=== PATIENT | male | born 1995 | race African-American/Black ===

== ENCOUNTER 2022-10-15 12:45 | Outpatient (REF) | payer OTHER, SELFPAY ==
--- NOTE | ~2022-10-15 | XR_ITS ---
EXAMINATION: XR ANKLE, LEFT CLINICAL INFORMATION: Left ankle pain. COMPARISON: None TECHNIQUE: 3 views of the left ankle. FINDINGS: There is no evidence of acute fracture or dislocation of the left ankle. No significant soft tissue swelling is present. There is a 4 x 3 mm circumscribed density seen about the ankle joint between the tibia and fibula and may represent sequela from previous injury. Ankle mortise appears intact. There is some spurring seen about the anterior aspect of the tibial talar joint as well as involving the dorsum of the talonavicular joint. Patient is status post previous tarsal and metatarsal surgery with plate and screws in place. XR/XR ankle LT min 3V IMPRESSION: 1. Degenerative change of the left ankle without evidence of acute fracture or dislocation. 2. Question possible loose body or degenerative calcification about the lateral aspect of the ankle joint. This is not usual region of secondary ossification center of the ankle.
[2022-10-15 12:58] LABS: MANUAL DIFF FLAG NO
[2022-10-15 13:25] LABS: Appearance Urine Clear; Color Urine Yellow; Glucose Urine UA Negative (Negative); Leukocyte Esterase Urine Negative (Negative); Nitrite Urine Negative (Negative); PH 5.5 (5.0-9.0); Urine Blood Negative (Negative); Urine Ketones Negative (Negative); Urine Protein Negative (Neg-Trace)
[2022-10-15 13:33] LABS: Basophils Percent Auto 0.3 % (0-2); Eosinophils Absolute Auto 0.1 X10*3/uL (0.0-0.4); Hematocrit 41.3 % (42.0-52.0); Hemoglobin 14.2 g/dl (14.0-18.0); Imm Gran Abs Auto 0.02 X10*3/uL (0.00-0.03); Imm Gran Pct Auto 0.5 % (0.0-0.4); Lymphocytes Absolute Auto 1.5 X10*3/uL (1.2-4.9); Lymphocytes Percent Auto 36.6 % (20-40); Mean Corpuscular HGB Conc 34.4 g/dl (31.0-36.0); Mean Corpuscular Hemoglobin 29.8 pg (27.0-33.0); Mean Corpuscular Volume 86.6 fL (80.0-98.0); Mean Platelet Volume 9.5 fL (9.4-12.4); Monocytes Absolute Auto 0.5 X10*3/uL (0.1-1.2); Monocytes Percent Auto 12.8 % (2-11); Neutrophils Absolute Auto 1.9 x10*3/uL (2.0-8.3); Neutrophils Percent Auto 47.8 % (45-73); Platelet Count 248 X10*3/uL (160-400); Red Blood Count 4.77 X10*6/uL (4.60-5.80)
[2022-10-15 14:00] LABS: Alanine Aminotransferase 16 U/L (0-40); Albumin Level 4.2 g/dL (3.5-5.0); Alkaline Phosphatase 73 U/L (39-117); Anion Gap 12 (12-20); Aspartate Amino Transferase 19 U/L (5-37); Bilirubin Total 0.5 mg/dL (0.0-1.0); Blood Urea Nitrogen 13 mg/dL (9-16); Calcium 9.5 mg/dL (8.4-10.2); Carbon Dioxide 27 mmol/L (22-29); Cholesterol 176 mg/dL; Estimated Glomerular Filt Rate > 60; Glucose Random 79 mg/dL (60-115); Total Protein 7.5 g/dL (6.5-8.0)
[2022-10-15 15:28] LABS: Chloride 107 mmol/L (96-108); Potassium 4.4 mmol/L (3.3-5.1); Sodium 142 mmol/L (135-145); TSH reflex Free T4 1.92 uIU/mL (0.32-4.0); Vitamin D 25-OH Total 26.8 ng/mL (>30)
== END 2022-10-15 12:46 | disposition home or self-care (01) ==
LOC: HO.LAB 12:45
PROVIDERS: PCP Internal Medicine; Visit Provider Internal Medicine
DX: Z00.00 Encounter for general adult medical examination without abnormal findings (principal); M25.572 Pain in left ankle and joints of left foot; R30.0 Dysuria; I10 Essential (primary) hypertension; E55.9 Vitamin D deficiency, unspecified; E78.00 Pure hypercholesterolemia, unspecified
CPT/HCPCS: 36415; 73610; 80053; 81003; 82306; 82465; 84443; 85025

== ENCOUNTER 2023-01-09 11:12 | Outpatient (REF) | payer OTHER, SELFPAY ==
--- NOTE | ~2023-01-09 | XR_ITS ---
EXAMINATION: XR KNEE AP STANDING CLINICAL INFORMATION: Pain in the right knee. COMPARISON: None TECHNIQUE: AP bilateral standing view of the knees was obtained. FINDINGS: No acute fractures or malalignment in this limited single view of the knees. Mild joint space narrowing with subcortical sclerosis in the medial compartments, slightly more noticeable on the left side. No erosions or chondrocalcinosis. No unexpected radiopaque foreign bodies. XR/XR knee standing BI IMPRESSION: 1. No acute fractures or malalignment. 2. Mild degenerative osteoarthritis in the medial compartments of both knees, slightly more apparent on the left knee.
== END 2023-01-09 11:13 | disposition home or self-care (01) ==
LOC: HO.XRAY 11:12
PROVIDERS: PCP Internal Medicine; Visit Provider Internal Medicine
DX: M25.561 Pain in right knee (principal); M25.562 Pain in left knee
CPT/HCPCS: 73565

== ENCOUNTER 2023-05-29 10:19 | Outpatient (AMB) | payer OTHER, SELFPAY ==
[2023-05-29 10:32] VITALS: BP 118/86; PULSE 68; O2SAT 98; BMI 23.0
--- NOTE | 2023-05-29 10:32 | A.OFFPC_ITS ---
Vital Signs 05/29/23 10:32 Height 6 ft 1.5 in Weight 176 lb 6 oz BMI 23.0 BP 118/86 Blood Pressure Location Lt brachial Position Sitting Pulse 68 Pulse Source Pulse Oximeter Pulse Oximetry (%) 98 Oxygen Delivery Method Room Air Intake Visit Reasons: 4mth f/u/Rapid weight loss [employer] Service Manager Required: No Accompanied by: Self / Same As Patient Allergies amphetamine [From Adderall] Allergy (Severe, Verified 05/29/23 11:13) Anaphylaxis dextroamphetamine [From Adderall] Allergy (Severe, Verified 05/29/23 11:13) Anaphylaxis seafood Allergy (Severe, Verified 05/29/23 11:13) Anaphylaxis Medication List - Last Reconciled 05/29/23 by Bryan Joseph MD albuterol sulfate 90 mcg/actuation 2 puffs inhalation Q6H PRN aspirin 325 mg PO Q4H benztropine 0.5 mg PO BID cholecalciferol (vitamin D3) 50 mcg PO DAILY 90 days divalproex (Depakote) 500 mg PO BID hydroxyzine HCl 25 mg PO BID PRN hydroxyzine HCl 50 mg PO TID loratadine 10 mg PO DAILY multivit with min-folic acid 200 mcg (Men's Multivitamin Gummies) tabs PO olanzapine (Zyprexa) 2.5 mg PO DAILY olanzapine (Zyprexa) 15 mg PO BEDTIME prazosin 5 mg PO BEDTIME sumatriptan succinate take 1 tab at onset of headache; if no relief may repeat 1 tab after at least 2 hrs; max = 4 tabs/24 hr PO Tobacco use date assessed: 05/29/23 Dental Screening Dental Screen Date: 05/29/23 Did you have a dental visit in the last 12 months?: Yes Did you have a dental problem in the last 6 months where you did not have access to dental care?: No Was dental information given to patient?: Patient has dentist HPI 4mth f/u/Rapid weight loss HPI Details Patient comes in today for further evaluation of weight loss States that he has been losing a lot of weight lately Notes that he would llke to lose some weight but he has not really done much to help him lose weight lately and has already lost about 40 pounds in just over 4 months and is now getting concerned Relates that he has been experiencing on and off abdominal pain for a while now, and that his stomach pains have gotten worse over the past month, especially in the morning and late at night Notes that eating/drinking do not necessarily help or make his abdominal pains worse He denies any nausea or vomiting or change in bowel habits; has not noticed any blood in his stool lately He denies any dizziness; still has on and off headaches but feels that they are better controlled lately Was seen by neurology at [facility] a couple of weeks ago for his migraine headaches and was started on Rizatriptan 10 mg and Naproxen 500 mg PRN for now; will consider prophylactic Tx at his next visit depending on his his symptoms will be at the time Denies any chest pains, no shortness of breath noted Patient has also been experiencing a lot of recurrent neck pains lately and would like to get something to help with his neck pain Does not recall any recent injury or trauma to his neck [facility] Medical History Allergic rhinitis Anxiety Asthma Bipolar depression Overweight (BMI 25.0-29.9) Vitamin D deficiency Surgical History History of ankle surgery (~05/09/19) Family History Mother Mental health disorder Social History Housing: Apartment Patient Tobacco Use Status: Never used Tobacco Tobacco use type: Cigarette e-Cigarette/Vaping Use: Never Used Second Hand Smoke Exposure: No service: No Current occupational status: unemployed and disabled Cognitive needs: No Hearing needs: No Vision needs: No Questionnaire PHQ-9 Over the last 2 weeks, how often have you been bothered by any of the following problems? 1. Little interest or pleasure in doing things: several days 2. Feeling down, depressed, or hopeless: several days 3. Trouble falling or staying asleep, or sleeping too much: several days 4. Feeling tired or having little energy: more than half the days 5. Poor appetite or overeating: several days 6. Feeling bad about yourself - or that you are a failure or have let yourself or your family down: not at all 7. Trouble concentrating on things, such as reading the newspaper or watching television: more than half the days 8. Moving or speaking so slowly that other people could have noticed. Or the opposite - being so fidgety or restless that you have been moving around a lot more than usual: not at all 9. Thoughts that you would be better off or of hurting yourself in some way: not at all Total score: 8 Depression Screening Interpretation: Positive Depression Screening Follow-up: Existing condition and In treatment 04988 - PHQ-9 Billing: Yes Source: Developed by Drs. Desean Benjamin, Jade Sanders, Blade Mccabe and colleagues, with an educational axel from [employer]. Thrive Questionnaire Date Thrive assessed: 05/29/23 I am a: Patient What is your living situation today?: I have a place to live, but I am worried about losing it in the future Within the past 12 months, did the food you bought not last and you didn't have the money to get more?: Sometimes True Within the past 12 months, did you worry whether your food would run out before you got money to buy more?: Sometimes True Do you have trouble paying for medicines?: No Do you have trouble getting transportation to medical appointments?: No Do you have trouble paying your heating and electricity bill?: No Do you have trouble taking care of your child, family member or friend?: No Do you have trouble with day-to-day activities such as bathing, preparing meals, shopping, managing finances, etc.?: No Are you currently unemployed and looking for a job?: No Are you interested in more education?: No Please select the resources that you would like help with: None Currently or been in a relationship where the following occur: no concerns reported AUDIT C Alcohol Use Questionnaire (AUDIT-C) 1. How often do you have a drink containing alcohol?: Never 3. How often do you have six or more drinks on one occasion?: Never Total Score: 0 Score Reviewed/Action Taken: Yes KELSI-7 AMB Questionnaire KELSI-7 Date KELSI - 7 assessed: 05/29/23 Feeling nervous, anxious, or on edge: 1 = Several days Not being able to stop or control worryin = More than half the days Worrying too much about different things: 0 = Not at all Trouble relaxin = Several days Being so restless that it is hard to sit still: 1 = Several days Becoming easily annoyed or irritable: 0 = Not at all Feeling afraid as if something awful might happen: 1 = Several days Total KELSI-7 score (0-4 normal; 5-9 mild; 10-14 moderate; 15-21 severe): 6 Source: Developed by Drs. Desean Benjamin, Jade Sanders, Blade Mccabe and colleagues, with an educational axel from [employer]. Review of Systems Const Denies chills, Denies fatigue, Denies fever(s), Reports headache(s) (on and off but feels they have been better controlled lately) and Reports weight loss ENT Denies dysphagia, Denies dizziness, Denies otalgia, Reports headache(s) (on and off but feels they have been better controlled lately), Reports neck pain (recurrent lately), Denies odynophagia and Denies sore throat Card Denies chest pain, Denies palpitations and Denies dyspnea Resp Denies cough and Denies dyspnea GI Reports abdominal pain (on and off, mostly over the epigastric area), Denies hematochezia, Denies constipation, Denies dysphagia, Denies heartburn, Denies diarrhea, Denies nausea, Denies odynophagia and Denies vomiting Denies dysuria, Denies nocturia and Denies urinary frequency Musc Reports neck pain (recurrent lately) Neuro Denies dizziness and Reports headache(s) (on and off but feels they have been better controlled lately) Endo Denies fatigue and Denies palpitations Physical exam (Primary Care) Vital Signs: Last Vital Signs Pulse 68 05/29/23 10:32 BP 118/86 05/29/23 10:32 Pulse Ox 98 05/29/23 10:32 Oxygen Delivery Method Room Air 05/29/23 10:32 BMI result Body Mass Index 23.0 Tobacco/Smoking Status: Tobacco use Status Tobacco use date assessed 05/29/23 05/29/23 10:39 Patient Tobacco Use Status Never used Tobacco 05/29/23 10:39 Tobacco use type Cigarette 05/29/23 10:39 e-Cigarette/Vaping Use Never Used 05/29/23 10:39 PHQ-9: PHQ-9 Score PHQ-9: Total score 8 05/30/23 04:43 Depression Screening Interpretation: Positive Depression Screening Follow-up: Existing condition and In treatment Thrive Assessment: Date of Thrive Assessment Date Thrive assessed 05/29/23 05/29/23 10:39 Currently or been in a relationship where the following occur: no concerns reported Const General: no acute distress and alert HENMT Ears: TM's normal bilaterally and EAC's normal Throat: Yes posterior oropharynx normal and Yes tonsils normal (no TP congestion) Neck Neck: Yes no lymphadenopathy and Yes supple Resp Auscultation: clear to auscultation bilaterally, no rales and no wheezes Cardio Rate: regular rate Rhythm: regular rhythm Heart sounds: no murmurs GI Palpation (GI): Soft to palpation, Tenderness to palpation present (GI) (mild) in the epigastrum, no guarding, not rigid, No hepatosplenomegaly present and No Rebound tenderness present General: Yes no CVA tenderness Back/Spine/Pelvis Back: no CVA tenderness Cervical Spine: cervical muscular tenderness Skin General skin exam: no rashes or lesions noted Extrem General: Yes no clubbing, cyanosis or edema Assessment and Plan Assessment & Plan (1) Unintentional weight loss: Code(s): R63.4 - Abnormal weight loss Plan: Will send patient for some labs AARON for further evaluation (2) Abdominal pain: Code(s): R10.9 - Unspecified abdominal pain Qualifiers: Abdominal location: epigastric Qualified Code(s): R10.13 - Epigastric pain Plan: Discussed some dietary restrictions at this time until we find out more about his stomach symptoms Will send patient for upper GI series for further evaluation Will start patient on Omeprazole 20 mg QD PRN for now (3) Neck pain: Code(s): M54.2 - Cervicalgia Plan: Will send him for cervical spine x-rays for further evaluation Will start him on Tizanidine 4 mg TID PRN (4) Migraine: Code(s): G43.909 - Migraine, unspecified, not intractable, without status migrainosus Qualifiers: Migraine type: unspecified Status migrainosus presence: without status migrainosus Intractability: not intractable Qualified Code(s): G43.909 - Mi graine, unspecified, not intractable, without status migrainosus Plan: Reinforced avoidance of triggers and potential triggers for his migraine h eadaches Continue Rizatriptan 10 mg PRN and Naproxen 500 mg BID PRN (to be taken with food) Neurology will consider starting on prophylactic medications if his headaches persist or get worse Follow-up [facility] neurology as scheduled (5) Asthma: Code(s): J45.909 - Unspecified asthma, uncomplicated Qualifiers: Asthma severity: mild Asthma persistence: intermittent Asthma complication type: uncomplicated Qualified Code(s): J45.20 - Mild intermittent asthma, uncomplicated Plan: Stable; continue Albuterol HFA 1 to 2 inhalations Q 6 hours PRN (6) Vitamin D deficiency: Code(s): E55.9 - Vitamin D deficiency, unspecified Plan: Continue Vitamin D3 2000 units QD (7) Anxiety: Code(s): F41.9 - Anxiety disorder, unspecified Plan: Continue Hydroxyzine 50 mg TID PRN Follow up with psychiatry as scheduled (8) Bipolar depression: Code(s): F31.9 - Bipolar disorder, unspecified Plan: Continue Depakote 500 mg BID, Benztropine 0.5 mg BID, Olanzapine 2.5 mg QD and 15 mg Q HS and Prazosin 5 mg Q HS Follow up with psychiatry as scheduled Plan Follow up in 3 months Orders: Orders TSH reflex Free T4 05/29/23 R63.4 - Abnormal weight loss Complete Blood Count Auto Diff 05/29/23 R63.4 - Abnormal weight loss, Z86.2 - Personal history of diseases of the blood and blood-forming organs and certain disorders involving the immune mechanism Hemoglobin Electrophoresis 05/29/23 R63.4 - Abnormal weight loss, Z86.2 - Personal history of diseases of the blood and blood-forming organs and certain disorders involving the immune mechanism Comprehensive [place]. Panel Fast 05/29/23 R63.4 - Abnormal weight loss Lipid Panel 05/29/23 E78.00 - Pure hypercholesterolemia, unspecified, R63.4 - Abnormal weight loss Vitamin D 25-OH Total 05/29/23 E55.9 - Vitamin D deficiency, unspecified, R63.4 - Abnormal weight loss Erythrocyte Sedimentation Rate 05/29/23 R10.9 - Unspecified abdominal pain, R63.4 - Abnormal weight loss UA CC w/rflx Micro + Cult 05/29/23 R30.0 - Dysuria, R63.4 - Abnormal weight loss XR cervical spine 3V 05/29/23 M54.2 - Cervicalgia FL upper GI series 05/29/23 R10.9 - Unspecified abdominal pain, R63.4 - Abnormal weight loss Medications: New tizanidine 4 mg PO Q8H 30 days PRN 90 tabs 0RF muscle spasms omeprazole 20 mg PO DAILY 30 days 30 caps 3RF Coding Level of Care Code Est Pt Level 4 (71571) Diagnoses Unintentional weight loss R63.4 Abdominal pain R10.13 Abdominal location: epigastric Neck pain M54.2 Migraine G43.909 Migraine type: unspecified Status migrainosus presence: without status migrainosus Intractability: not intractable Asthma J45.20 Asthma severity: mild Asthma persistence: intermittent Asthma complication type: uncomplicated Vitamin D deficiency E55.9 Anxiety F41.9 Bipolar depression F31.9
== END 2023-05-29 11:32 | disposition home or self-care (01) ==
PROVIDERS: Visit Provider Internal Medicine
DX: J45.20 Mild intermittent asthma, uncomplicated (principal); G43.909 Migraine, unspecified, not intractable, without status migrainosus; E55.9 Vitamin D deficiency, unspecified; F41.9 Anxiety disorder, unspecified; F31.9 Bipolar disorder, unspecified; R63.4 Abnormal weight loss; R10.13 Epigastric pain; M54.2 Cervicalgia
CPT/HCPCS: 99214

== ENCOUNTER 2023-05-29 11:38 | Outpatient (REF) | payer OTHER, SELFPAY ==
--- NOTE | ~2023-05-29 | XR_ITS ---
EXAMINATION: XR CERVICAL SPINE CLINICAL INFORMATION: Woke up with neck pain. COMPARISON: None available. TECHNIQUE: 4 views of the cervical spine. FINDINGS: No abnormal prevertebral soft tissue swelling is seen. No significant disc space narrowing is noted. No subluxation is seen. XR/XR cervical spine 3V IMPRESSION: No significant cervical spine abnormality appreciated.
[2023-05-29 12:02] LABS: MANUAL DIFF FLAG NO
[2023-05-29 13:53] LABS: Appearance Urine Clear; Color Urine Yellow; Glucose Urine UA Negative (Negative); Leukocyte Esterase Urine Negative (Negative); Nitrite Urine Negative (Negative); Specific Gravity - Urine 1.015 (1.005-1.025); Urine Blood Negative (Negative); Urine Ketones Negative (Negative); Urine Protein Negative (Neg-Trace)
[2023-05-29 13:58] LABS: Basophils Percent Auto 0.5 % (0-2); Eosinophils Percent Auto 0.5 % (0-4); Hematocrit 41.3 % (42.0-52.0); Hemoglobin 14.2 g/dl (14.0-18.0); Imm Gran Abs Auto 0.01 X10*3/uL (0.00-0.03); Imm Gran Pct Auto 0.3 % (0.0-0.4); Lymphocytes Absolute Auto 1.5 X10*3/uL (1.2-4.9); Mean Corpuscular HGB Conc 34.4 g/dl (31.0-36.0); Mean Corpuscular Hemoglobin 30.1 pg (27.0-33.0); Mean Corpuscular Volume 87.7 fL (80.0-98.0); Mean Platelet Volume 10.6 fL (9.4-12.4); Monocytes Absolute Auto 0.3 X10*3/uL (0.1-1.2); Monocytes Percent Auto 6.5 % (2-11); Neutrophils Absolute Auto 2.2 x10*3/uL (2.0-8.3); Neutrophils Percent Auto 55.2 % (45-73); Platelet Count 228 X10*3/uL (160-400); Red Blood Count 4.71 X10*6/uL (4.60-5.80); Red Cell Distribution Width 12.6 % (11.0-16.0)
[2023-05-29 14:39] LABS: Alanine Aminotransferase 8 U/L (0-40); Albumin Level 4.6 g/dL (3.5-5.0); Alkaline Phosphatase 102 U/L (39-117); Anion Gap 14 (12-20); Aspartate Amino Transferase 14 U/L (5-37); Bilirubin Total 0.7 mg/dL (0.0-1.0); Blood Urea Nitrogen 9 mg/dL (9-16); Calcium 9.8 mg/dL (8.4-10.2); Carbon Dioxide 27 mmol/L (22-29); Chloride 105 mmol/L (96-108); Cholesterol 173 mg/dL; Estimated Glomerular Filt Rate > 60; Glucose Fasting 73 mg/dL (60-99); HDL Cholesterol 54 mg/dL; LDL Cholesterol Calculated 105 mg/dl; Potassium 4.2 mmol/L (3.3-5.1); Sodium 142 mmol/L (135-145); Triglycerides 72 mg/dL
[2023-05-29 14:55] LABS: TSH reflex Free T4 1.31 uIU/mL (0.32-4.0); Vitamin D 25-OH Total 56.9 ng/mL (>30)
[2023-05-29 15:06] LABS: Erythrocyte Sedimentation Rate 2 MM/HR (0-15)
[2023-06-03 21:29] LABS: Hematocrit 41.2 % (38.5-50.0); Hemoglobin 14.2 g/dL (13.2-17.1); MCH 30.7 pg (27.0-33.0); MCV 89.2 fL (80.0-100.0); RBC 4.62 Million/uL (4.20-5.80); RDW 13.6 % (11.0-15.0)
== END 2023-05-29 11:39 | disposition home or self-care (01) ==
LOC: HO.LAB 11:38
PROVIDERS: PCP Internal Medicine; Visit Provider Internal Medicine
DX: E55.9 Vitamin D deficiency, unspecified (principal); R63.4 Abnormal weight loss; R10.9 Unspecified abdominal pain; E78.00 Pure hypercholesterolemia, unspecified; R30.0 Dysuria; M54.2 Cervicalgia; Z86.2 Personal history of diseases of the blood and blood-forming organs and certain disorders involving the immune mechanism
CPT/HCPCS: 36415; 72040; 80053; 80061; 81003; 82306; 83020; 84443; 85014; 85018; 85025; 85041; 85652

== ENCOUNTER 2023-08-13 19:03 | Emergency (ER) | payer OTHER, SELFPAY ==
[2023-08-13 19:30] VITALS: BP 120/72; BP 170/80; PULSE 81; PULSE 82; RESP 20; TEMP 36.8; O2SAT 96; O2SAT 98; BMI 28.1
[2023-08-13 19:37] VITALS: BP 120/72; PULSE 82; RESP 20; TEMP 36.8; O2SAT 96
--- NOTE | 2023-08-13 19:51 | ED.PSYCH ---
HPI - Psych General Chief Complaint: Psychiatric Symptoms Stated Complaint: crisis Time Seen by Provider: 08/13/23 19:20 Source: patient and EMS Mode of arrival: EMS Limitations: no limitations History of Present Illness HPI Narrative: 27-year-old male history of anxiety, depression, bipolar disorder, PTSD presenting to the emergency department with complaints of anxiety, depression, difficulty with grieving, in stating ?I do not want to be here ?. Patient reports that his cousin was early murdered last week, and the body was is found today, this triggered all symptoms. He reports if he saw the person who killed his cousin he would want to hurt them. Not endorsing suicidal ideation however making vague complaints. No medical complaints. No hallucinations. No drugs, alcohol or tobacco Related Data Home Medications Medication Instructions Recorded Confirmed albuterol sulfate 90 mcg/actuation 2 puff inhalation Q6H PRN 09/06/22 05/29/23 aerosol inhaler aspirin 325 mg tablet 325 mg PO Q4H 09/06/22 05/29/23 benztropine 0.5 mg tablet 0.5 mg PO BID 09/06/22 05/29/23 divalproex 500 mg tablet,delayed 500 mg PO BID 09/06/22 05/29/23 release (Depakote) hydroxyzine HCl 25 mg tablet 25 mg PO BID PRN 09/06/22 05/29/23 hydroxyzine HCl 50 mg tablet 50 mg PO TID 09/06/22 05/29/23 loratadine 10 mg tablet 10 mg PO DAILY 09/06/22 05/29/23 multivitamin with minerals-folic tab PO 09/06/22 05/29/23 acid 200 mcg chewable tablet (Men's Multivitamin Gummies) olanzapine 15 mg tablet (Zyprexa) 15 mg PO BEDTIME 09/06/22 05/29/23 olanzapine 2.5 mg tablet (Zyprexa) 2.5 mg PO DAILY 09/06/22 05/29/23 prazosin 5 mg capsule 5 mg PO BEDTIME 09/06/22 05/29/23 Previous Rx's Medication Instructions Recorded cholecalciferol (vitamin D3) 50 50 mcg PO DAILY 90 days #90 caps 01/09/23 mcg (2,000 unit) capsule sumatriptan succinate 50 mg tablet See Rx Instructions PO .COMPLEX 04/10/23 #10 tabs omeprazole 20 mg capsule,delayed 20 mg PO DAILY 30 days #30 caps 05/29/23 release tizanidine 4 mg tablet 4 mg PO Q8H PRN muscle spasms 30 05/29/23 days #90 tabs Allergies Allergy/AdvReac Type Severity Reaction Status Date / Time amphetamine [From Adderall] Allergy Severe Anaphylaxis Verified 08/13/23 19:30 dextroamphetamine Allergy Severe Anaphylaxis Verified 08/13/23 19:30 [From Adderall] seafood Allergy Severe Anaphylaxis Verified 08/13/23 19:30 Review of Systems Review of Systems: Constitutional : No Weight loss, No Fever, No Chills, No Fatigue, No Malaise ENT/Mouth : No sore throat, No Rhinorrhea Eyes: No Eye Pain, No Swelling, No Redness Cardiovascular : No Chest Pain, No SOB, No Dyspnea on Exertion, No Orthopnea, No Edema, No Palpitations Respiratory : No Cough, No Sputum, No Wheezing Gastrointestinal : No Nausea, No Vomiting, No Diarrhea, No Constipation, No abdominal Pain, No Hematochezia, No Melena Genitourinary : No Dysuria, No Urinary Frequency, No Hematuria, Musculoskeletal : No joint pain, No Myalgias, No Joint Swelling Skin : No Skin Lesions, No rash Neuro : No Weakness, No Numbness, No Dizziness, No Headache Psych : + Anxiety/Panic, + Depression, + suicidal ideation All other systems reviewed and are negative Yes all other systems are reviewed and are negative PMFSH Past Medical History Attestation statement: The following information was validated with the patient. Source: old records reviewed and nursing notes reviewed Medical History Allergic rhinitis Anxiety Asthma Bipolar depression Overweight (BMI 25.0-29.9) Vitamin D deficiency Surgical History History of ankle surgery (~05/09/19) Family History Family History Mother Mental health disorder Social History Social History Housing: Apartment Alcohol intake: never Patient Tobacco Use Status: Never used Tobacco Tobacco use type: Cigarette Smoked in Last 30 Days: No e-Cigarette/Vaping Use: Never Used Second Hand Smoke Exposure: No Use of substances other than those prescribed or required for medical reasons: Yes Substance Use Type: Marijuana Advance Directives: No Advance Directives Information Provided: No service: No Current occupational status: unemployed and disabled Cognitive needs: No Hearing needs: No Vision needs: No Physical Exam Vital Signs: Vital Signs: Last Vital Signs Temp 98.2 F 08/13/23 21:30 Pulse 69 08/13/23 21:30 Resp 17 08/13/23 21:30 BP 125/69 08/13/23 21:30 Pulse Ox 98 08/13/23 21:30 O2 Del Method Room Air 08/13/23 21:30 BMI result Body Mass Index 28.1 vss Appearance: Alert.? Oriented X3.? No acute distress.? Head: Normocephalic, atraumatic, no step-offs or deformities Eyes: Pupils equal, round and reactive to light.? CVS: Normal heart rate and rhythm.? Pulses normal.? Respiratory: No respiratory distress.? Breath sounds normal.? Abdomen: Soft and nontender.? Skin: Skin warm and dry.? Normal skin color.? Normal skin turgor.? Extremities: No lower extremity edema.? No calf ttp. 5/5 strength to bilateral upper and lower extremities Back: No midline tenderness, no C-spine tenderness, full range of motion, no CVA tenderness bilaterally Neuro: Oriented X 3.? No motor deficit.? No sensory deficit. CN 2-12 intact Course Reevaluation(s) Reevaluation #1: CBC unremarkable appears to be around patient's baseline. Chemistry no acute findings requiring intervention. UA without infection. Salicylates, acetaminophen, ethanol negative. Urine toxicology negative. At this time patient to be placed into observation to allow more time to be evaluated by the behavioral health team. At time observation was started patient common cooperative no acute distress will continue to monitor Time: 22:22 Medical Decision Making Medical Decision Making [facility] Narrative: [id number] 27-year-old male presents with anxiety, depression, recent loss of a cousin. Vague SI, and HI. Physical exam unremarkable Concerns for anxiety and depression likely secondary to recent loss of family member. Unlikely bipolar disorder, acute asa or psychosis, unlikely metabolic derangements. Will rule out polysubstance abuse, ethanol use. Plan medical clearance evaluation by behavioral health Differential Diagnosis Differential Diagnoses: The differential diagnosis associated with the presentation includes Concerns for anxiety and depression likely secondary to recent loss of family member. Unlikely bipolar disorder, acute asa or psychosis, unlikely metabolic derangements. Will rule out polysubstance abuse, ethanol use. Admission/Observation Consideration of admission/observation: Escalation of care including admission/observation considered Lab Data MDM Lab Attestation statement: I reviewed the patient's lab results. 08/13/23 21:26 08/13/23 21:26 Labs: Lab Results 08/13/23 Range/Units 21:26 WBC 5.6 (4.8-10.8) X10*3/uL RBC 4.52 L (4.60-5.80) X10*6/uL Hgb 13.6 L (14.0-18.0) g/dl Hct 39.1 L (42.0-52.0) % MCV 86.5 (80.0-98.0) fL MCH 30.1 (27.0-33.0) pg MCHC 34.8 (31.0-36.0) g/dl RDW 12.4 (11.0-16.0) % Plt Count 239 (160-400) X10*3/uL MPV 9.5 (9.4-12.4) fL Immature Gran % (Auto) 0.2 (0.0-0.4) % Neut % (Auto) 60.2 (45-73) % Lymph % (Auto) 31.6 (20-40) % [place] % (Auto) 7.0 (2-11) % Eos % (Auto) 0.5 (0-4) % Baso % (Auto) 0.5 (0-2) % Lymph # (Auto) 1.8 (1.2-4.9) X10*3/uL [place] # (Auto) 0.4 (0.1-1.2) X10*3/uL Eos # (Auto) 0.0 (0.0-0.4) X10*3/uL Baso # (Auto) 0.0 (0.0-0.2) X10*3/uL Abs Immat Gran (auto) 0.01 (0.00-0.03) X10*3/uL Absolute Neuts (auto) 3.4 (2.0-8.3) x10*3/uL Absolute Nucleated RBC 0.000 (0.0-0.012) X10*3/uL Nucleated RBC % (auto) 0.0 (0.0-0.2) /100WBC Sodium 141 (135-145) mmol/L Potassium 4.2 (3.3-5.1) mmol/L Chloride 105 (96-108) mmol/L Carbon Dioxide 26 (22-29) mmol/L Anion Gap 14 (12-20) BUN 16 (9-16) mg/dL Creatinine 1.10 (0.5-1.4) mg/dL Estim Creat Clear Calc 123.5 Estimated GFR > 60 Random Glucose 95 (60-115) mg/dL Calcium 9.3 (8.4-10.2) mg/dL Magnesium 2.4 (1.6-2.6) mg/dL Total Bilirubin 0.5 (0.0-1.0) mg/dL AST 15 (5-37) U/L ALT 9 (0-40) U/L Alkaline Phosphatase 88 (39-117) U/L Total Protein 7.9 (6.5-8.0) g/dL Albumin 4.4 (3.5-5.0) g/dL Urine Color Yellow Urine Appearance Clear Urine pH 7.0 (5.0-9.0) Ur Specific [place] 1.020 (1.005-1.025) Urine Protein Negative (Neg-Trace) mg/dL Urine Glucose (UA) Negative (Negative) mg/dL Urine Ketones Negative (Negative) mg/dL Urine Blood Negative (Negative) Urine Nitrite Negative (Negative) Ur Leukocyte Esterase Negative (Negative) Salicylates < 5.0 L (15-30) mg/dL Urine Opiates Screen Not Detected (Not Detect) Urine Fentanyl Screen Not Detected (Not Detect) Acetaminophen < 17 (<30) mcg/mL Ur Barbiturates Screen Not Detected (Not Detect) Ur Phencyclidine Scrn Not Detected (Not Detect) Ur Amphetamines Screen Not Detected (Not Detect) U Benzodiazepines Scrn Not Detected (Not Detect) Urine Cocaine Screen Not Detected (Not Detect) U Marijuana (THC) Screen Not Detected (Not Detect) Ethyl Alcohol < 10 mg/dL External Record Review External record reviewed: Office record and Outpatient record Chronic Conditions Patient?s care impacted by: Other (psych: depression, anxiety, ptsd, bipolar ) Social Determinants Patient?s care significantly limited by Social Determinants of Health including: Other Social Determinant of Health Critical Care Time Critical Care Time Critical Care Time: No Discharge Plan Discharge Clinical Impression: Anxiety, Depression, Grief reaction Patient Disposition: Still a Patient Prescriptions: No Action divalproex [Depakote] 500 mg tablet,delayed release (DR/EC) 500 mg PO BID olanzapine [Zyprexa] 15 mg tablet 15 mg PO BEDTIME olanzapine [Zyprexa] 2.5 mg tablet 2.5 mg PO DAILY prazosin 5 mg capsule 5 mg PO BEDTIME albuterol sulfate 90 mcg/actuation HFA aerosol inhaler 2 puff inhalation Q6H PRN hydroxyzine HCl 25 mg tablet 25 mg PO BID PRN hydroxyzine HCl 50 mg tablet 50 mg PO TID Men's Multivitamin Gummies 200 mcg tablet,chewable PO loratadine 10 mg tablet 10 mg PO DAILY benztropine 0.5 mg tablet 0.5 mg PO BID aspirin 325 mg tablet 325 mg PO Q4H Rx Instructions: while awake cholecalciferol (vitamin D3) 50 mcg (2,000 unit) capsule 50 mcg PO DAILY 90 Days Qty: 90 3RF tizanidine 4 mg tablet 4 mg PO Q8H PRN (Reason: muscle spasms) 30 Days Qty: 90 0RF omeprazole 20 mg capsule,delayed release(DR/EC) 20 mg PO DAILY 30 Days Qty: 30 3RF sumatriptan succinate 50 mg tablet See Rx Instructions PO .COMPLEX Qty: 10 2RF Rx Instructions: take 1 tab at onset of headache; if no relief may repeat 1 tab after at least 2 hrs; max = 4 tabs/24 hr PO
--- NOTE | 2023-08-13 21:00 | PC.NURSE ---
this rn assumed care from ems. pt admits to feeling depressed after significant life stressor pt denies SI/HI. pt calm and cooperative. pt changed into gown this rn discussed with kellen ding, internal affairs investigator, and security- pt deemed okay to keep belongings at bedside
--- NOTE | 2023-08-13 21:16 | MHC.EDTECH ---
SECURITY WENT TRUE PATIENT BELONGING ,RN PAGE SAID PT BELONINGS DONE NOT NEED TO BE LOCKED UP .
[2023-08-13 21:30] VITALS: BP 125/69; PULSE 69; RESP 17; TEMP 36.8; O2SAT 98
[2023-08-13 21:30] LABS: MANUAL DIFF FLAG NO
--- NOTE | 2023-08-13 21:31 | MHC.EDTECH ---
PT BLOOD DRAWN AND URINE SAMPLE COLLECTED AND SENT TO LAB ,PT HAD SOME SITA RENETTA TO DRINK ,REFUSED FOOD .
[2023-08-13 21:37] LABS: Appearance Urine Clear; Color Urine Yellow; Glucose Urine UA Negative (Negative); Leukocyte Esterase Urine Negative (Negative); Nitrite Urine Negative (Negative); Urine Blood Negative (Negative); Urine Ketones Negative (Negative); Urine Protein Negative (Neg-Trace)
[2023-08-13 21:39] LABS: Amphetamine Screen Urine Not Detected (Not Detect); Barbiturates, Urine Not Detected (Not Detect); Benzodiazepines Screen Urine Not Detected (Not Detect); Cannabinoid Screen Urine Not Detected (Not Detect); Cocaine Screen Urine Not Detected (Not Detect); Fentanyl, urine Not Detected (Not Detect); Opiate Screen Urine Not Detected (Not Detect); Phencyclidine Screen Urine Not Detected (Not Detect)
[2023-08-13 21:41] LABS: Basophils Percent Auto 0.5 % (0-2); Eosinophils Percent Auto 0.5 % (0-4); Hematocrit 39.1 % (42.0-52.0); Hemoglobin 13.6 g/dl (14.0-18.0); Imm Gran Abs Auto 0.01 X10*3/uL (0.00-0.03); Imm Gran Pct Auto 0.2 % (0.0-0.4); Lymphocytes Absolute Auto 1.8 X10*3/uL (1.2-4.9); Lymphocytes Percent Auto 31.6 % (20-40); Mean Corpuscular HGB Conc 34.8 g/dl (31.0-36.0); Mean Corpuscular Hemoglobin 30.1 pg (27.0-33.0); Mean Corpuscular Volume 86.5 fL (80.0-98.0); Mean Platelet Volume 9.5 fL (9.4-12.4); Monocytes Absolute Auto 0.4 X10*3/uL (0.1-1.2); Neutrophils Absolute Auto 3.4 x10*3/uL (2.0-8.3); Neutrophils Percent Auto 60.2 % (45-73); Platelet Count 239 X10*3/uL (160-400); Red Blood Count 4.52 X10*6/uL (4.60-5.80); Red Cell Distribution Width 12.4 % (11.0-16.0); White Blood Count 5.6 X10*3/uL (4.8-10.8)
[2023-08-13 21:55] LABS: Acetaminophen LAB < 17 mcg/mL (<30); Alanine Aminotransferase 9 U/L (0-40); Albumin Level 4.4 g/dL (3.5-5.0); Alkaline Phosphatase 88 U/L (39-117); Anion Gap 14 (12-20); Aspartate Amino Transferase 15 U/L (5-37); Bilirubin Total 0.5 mg/dL (0.0-1.0); Blood Urea Nitrogen 16 mg/dL (9-16); Calcium 9.3 mg/dL (8.4-10.2); Carbon Dioxide 26 mmol/L (22-29); Chloride 105 mmol/L (96-108); Creatinine Clr Calc Pharmacy 123.5; Estimated Glomerular Filt Rate > 60; Ethanol < 10 mg/dL; Glucose Random 95 mg/dL (60-115); Magnesium 2.4 mg/dL (1.6-2.6); Potassium 4.2 mmol/L (3.3-5.1); Salicylate < 5.0 mg/dL (15-30); Sodium 141 mmol/L (135-145); Total Protein 7.9 g/dL (6.5-8.0)
--- NOTE | 2023-08-14 01:50 | MHC.EDTECH ---
PATIENT HAD A SANDWICH AND DRANK SOME SITA RENETTA FOR SNACK .
--- NOTE | 2023-08-14 02:19 | PC.NURSE ---
pt calm and cooperative. awaiting care team consult. pt watching show on ipad. okay by pharmacist in charge pt denies SI/HI at this time
[2023-08-14 05:36] VITALS: BP 118/61; PULSE 60; RESP 15; TEMP 36.6; O2SAT 97
--- NOTE | 2023-08-14 08:02 | PC.NURSE ---
pt is currently asleep, respirations even and unlabored, in no apparent distress at this time, pt awaiting care team
[2023-08-14 08:13] VITALS: BP 125/57; PULSE 60; RESP 14; O2SAT 97
[2023-08-14 10:12] VITALS: BP 122/56; PULSE 50; RESP 16; TEMP 36.4; O2SAT 96
--- NOTE | 2023-08-14 10:30 | PC.NURSE ---
pt is calm and cooperative, respirations even and unlabored, skin appropriate for ethnicity, pt denies si/hi but is reporting feeling depressed
--- NOTE | 2023-08-14 13:38 | MHC.CARE ---
Pt referred to [facility]
--- NOTE | 2023-08-14 16:06 | PC.NURSE ---
PT is calm and cooperative. No behavioral concerns. Appetite good and he is eating meals plus snacks. Denies SI/HI/AVH but does endorse depression. Resting in bed currently breathing even and unlabored.
--- NOTE | 2023-08-14 17:54 | MHC.CARE ---
CARE Team checked status on [facility] bedsearch. [facility] confirmed no bed today . CARE Team will follow up in the morning.
[2023-08-14 21:14] VITALS: BP 131/70; PULSE 55; RESP 16; TEMP 36.1; O2SAT 98
--- NOTE | 2023-08-15 06:39 | PC.NURSE ---
Patient slept through the night, no distress observed/reported, behavior non concerning, labs completed/resulted, disposition per care team is voluntary respite bed search, labs completed/resulted, VSS, will continue to monitor.
--- NOTE | 2023-08-15 07:42 | PC.NURSE ---
patient appears to remain asleep at present respirations are even and unlabored patient appears in no distress
--- NOTE | 2023-08-15 09:02 | MHC.CARE ---
patient is in review for adult [facility]CS with [facility] today. They will follow up/ call back.
--- NOTE | 2023-08-15 11:56 | MHC.CARE ---
reached out to [facility] both at 830 and at 1145 to inquire into patient's referral status. Both times told he is in review for ACCS LOC with [facility]
[2023-08-15] MEDS: Divalproex Sodium 500 MG TABLET.DR PO ×2 (12:09→20:44)
[2023-08-15] MEDS: Omeprazole 20 MG CAPSULE.DR PO (12:09)
[2023-08-15] MEDS: Cholecalciferol (Vitamin D3) 25 MCG TABLET 50 MCG PO (12:09)
[2023-08-15] MEDS: OLANZapine 2.5 MG TABLET PO (12:09)
[2023-08-15 12:10] VITALS: BP 122/77; PULSE 68; RESP 16; TEMP 36.4; O2SAT 98
[2023-08-15] MEDS: Benztropine Mesylate 0.5 MG TABLET PO (12:10)
[2023-08-15 12:24] LABS: Valproate < 12.5 mcg/mL (50.0-100.0)
--- NOTE | 2023-08-15 14:34 | MHC.CARE ---
patient seen for [facility], continues to seek [facility]S loc, [facility] faxed to [facility] as well.
--- NOTE | 2023-08-15 16:13 | PC.NURSE ---
patient moved to main ER, appears to be sleeping in front of nurses station. respirations equal and unlabored appears to be in no distress.
[2023-08-15] MEDS: OLANZapine 7.5 MG TABLET 15 MG PO (20:44)
[2023-08-15 20:47] VITALS: BP 129/78; PULSE 98; RESP 18; TEMP 36.8; O2SAT 96
--- NOTE | 2023-08-15 22:02 | MHC.CARE ---
Tw called [facility] @ 2151, no beds right now. F/u for tomorrow.
--- NOTE | 2023-08-16 06:18 | PC.NURSE ---
Patient slept through the night, no distress observed/reported, behavior non concerning, labs completed/resulted, disposition per care team is voluntary respite bed search, no update on bed search yet, labs completed/resulted, medication compliant selectively, refused Hs cogentin and prazosin, VSS, will continue to monitor.
[2023-08-16] MEDS: Divalproex Sodium 500 MG TABLET.DR PO ×2 (09:15→21:04)
[2023-08-16] MEDS: Omeprazole 20 MG CAPSULE.DR PO (09:16)
[2023-08-16] MEDS: Cholecalciferol (Vitamin D3) 25 MCG TABLET 50 MCG PO (09:16)
[2023-08-16] MEDS: Benztropine Mesylate 0.5 MG TABLET PO (09:21)
[2023-08-16 09:31] VITALS: BP 112/59; PULSE 52; RESP 16; TEMP 37.1; O2SAT 95
[2023-08-16 15:33] VITALS: RESP 16
--- NOTE | 2023-08-16 16:45 | PC.NURSE ---
Tikyun is currently a respite bed search with no updates on this shift. All labs completed and resulted. Med complaint selectively refusing AM olanzapine. Appetite is good and Tiwaun is eating 100% of meals and requesting snacks throughout the day. No behavioral concerns noted, Denies SI/HI/AVH. Staff to continue offering support and maintaining safety.
[2023-08-16] MEDS: OLANZapine 7.5 MG TABLET 15 MG PO (21:04)
--- NOTE | 2023-08-17 06:01 | PC.NURSE ---
Patient slept through the night, no distress observed/reported, behavior non concerning, labs completed/resulted, disposition per care team is voluntary respite bed search, no update on bed search yet, labs completed/resulted, medication compliant selectively, continue refusing HS Cogentin and Prazosin, VSS, will continue to monitor.
[2023-08-17 06:52] VITALS: BP 114/58; PULSE 60; RESP 18; TEMP 36.5; O2SAT 98
[2023-08-17] MEDS: Divalproex Sodium 500 MG TABLET.DR PO (08:32)
[2023-08-17] MEDS: Benztropine Mesylate 0.5 MG TABLET PO (08:32)
[2023-08-17] MEDS: Omeprazole 20 MG CAPSULE.DR PO (08:32)
[2023-08-17] MEDS: Cholecalciferol (Vitamin D3) 25 MCG TABLET 50 MCG PO (08:32)
[2023-08-17 10:08] VITALS: BP 130/73; PULSE 71; RESP 16; TEMP 36.8; O2SAT 95
[2023-08-17 14:47] VITALS: RESP 18
== END 2023-08-17 15:31 | disposition home or self-care (01) ==
PROVIDERS: Physician Assistant; Student in an Organized Health Care Education/Training Program; Emergency Provider Emergency Medicine; PCP Internal Medicine
DX: F41.9 Anxiety disorder, unspecified (principal); F31.9 Bipolar disorder, unspecified; F43.21 Adjustment disorder with depressed mood; R45.851 Suicidal ideations; F43.10 Post-traumatic stress disorder, unspecified; Z79.82 Long term (current) use of aspirin; Z79.899 Other long term (current) drug therapy
CPT/HCPCS: 36415; 80053; 80143; 80164; 80179; 80307; 81003; 83735; 85025; 99285; S9485

== ENCOUNTER 2023-08-25 12:51 | Outpatient (AMB) | payer OTHER, SELFPAY ==
--- NOTE | 2023-08-25 13:16 | MHC.PC.OV ---
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 Accompanied by: Self / Same As Patient Allergies amphetamine [From Adderall] Allergy (Severe, Verified 08/29/23 05:58) Anaphylaxis dextroamphetamine [From Adderall] Allergy (Severe, Verified 08/29/23 05:58) Anaphylaxis seafood Allergy (Severe, Verified 08/29/23 05:58) Anaphylaxis Medication List - Last Reconciled 08/29/23 by Bryan Joseph MD benztropine 0.5 mg PO BID benztropine 0.5 mg PO BID cholecalciferol (vitamin D3) 50 mcg PO DAILY divalproex (Depakote) 500 mg PO BID divalproex (Depakote) 500 mg PO BID hydroxyzine HCl 25 mg PO BID PRN olanzapine 15 mg PO BEDTIME olanzapine (Zyprexa) 2.5 mg PO DAILY olanzapine (Zyprexa) 15 mg PO BEDTIME omeprazole 20 mg PO DAILY omeprazole 20 mg PO DAILY 30 days prazosin 5 mg PO BEDTIME prazosin 5 mg PO BEDTIME tizanidine 4 mg PO Q8H PRN 30 days Tobacco use date assessed: 08/25/23 Dental Screening Dental Screen Date: 08/25/23 Did you have a dental visit in the last 12 months?: Yes Did you have a dental problem in the last 6 months where you did not have access to dental care?: No Was dental information given to patient?: Patient has dentist HPI ED [facility] 08/05- broken nose HPI Details Patient comes in today for his F follow up visit Patient went to the ER earlier this month for further evaluation after he reportedly passed out briefly a couple of times following a blow to nose when he was reportedly hit with an elbow while playing basketball with some friends Patient thinks that he may have also hit his head when he fell down after he got hit on the nose and he reports bleeding profusely out of his nose for a while after the trauma CT of the head, cervical spine, face and orbits done at the ER all came back negative except for what appears to be a minor fracture of the bridge of the nasal bone X-rays of the left clavicle, left shoulder and left ankle also all came back negative for acute fractures or injuries The rest of his workups were all negative and he was eventually cleared for discharge from the ER He was provided reportedly a phone number to contact ENT regarding his nasal injury and was advised to follow up with Neurology as well given his reported head trauma and loss of consciousness as there is still some concerns for possible concussion Patient states that he currently feels okay except for a persistent pain over the bridge of his nose He denies any increased headaches or dizziness recently Denies any blurring of his vision Denies any chest pains, no shortness of breath No nausea /vomiting, no abdominal pain No change in bowel habits noted [facility] Medical History Overweight (BMI 25.0-29.9) Vitamin D deficiency Allergic rhinitis Anxiety Bipolar depression Asthma Surgical History History of ankle surgery (~05/09/19) Family History Mother Mental health disorder Social History Housing: Apartment Alcohol intake: never Patient Tobacco Use Status: Never used Tobacco Tobacco use type: Cigarette e-Cigarette/Vaping Use: Never Used Second Hand Smoke Exposure: No Substance Use Type: Marijuana service: No Current occupational status: unemployed and disabled Cognitive needs: No Hearing needs: No Vision needs: No Questionnaire PHQ-9 Over the last 2 weeks, how often have you been bothered by any of the following problems? 1. Little interest or pleasure in doing things: several days 2. Feeling down, depressed, or hopeless: several days 3. Trouble falling or staying asleep, or sleeping too much: several days 4. Feeling tired or having little energy: more than half the days 5. Poor appetite or overeating: several days 6. Feeling bad about yourself - or that you are a failure or have let yourself or your family down: not at all 7. Trouble concentrating on things, such as reading the newspaper or watching television: more than half the days 8. Moving or speaking so slowly that other people could have noticed. Or the opposite - being so fidgety or restless that you have been moving around a lot more than usual: not at all 9. Thoughts that you would be better off or of hurting yourself in some way: not at all Total score: 8 Depression Screening Interpretation: Positive Depression Screening Follow-up: Existing condition and In treatment Depression Screening Done: Yes 72331 - PHQ-9 Billing: Yes Source: Developed by Drs. Desean Benjamin, Jade Sanders, Blade Mccabe and colleagues, with an educational axel from [employer] Thrive Questionnaire Date Thrive assessed: 08/25/23 I am a: Patient What is your living situation today?: I have a place to live, but I am worried about losing it in the future Within the past 12 months, did the food you bought not last and you didn't have the money to get more?: Sometimes True Within the past 12 months, did you worry whether your food would run out before you got money to buy more?: Sometimes True Do you have trouble paying for medicines?: No Do you have trouble getting transportation to medical appointments?: No Do you have trouble paying your heating and electricity bill?: No Do you have trouble taking care of your child, family member or friend?: No Do you have trouble with day-to-day activities such as bathing, preparing meals, shopping, managing finances, etc.?: No Are you currently unemployed and looking for a job?: No Are you interested in more education?: No Please select the resources that you would like help with: None Currently or been in a relationship where the following occur: no concerns reported AUDIT C Alcohol Use Questionnaire (AUDIT-C) 1. How often do you have a drink containing alcohol?: Never 3. How often do you have six or more drinks on one occasion?: Never Total Score: 0 Score Reviewed/Action Taken: Yes KELSI-7 AMB Questionnaire KELSI-7 Date KELSI - 7 assessed: 08/25/23 Feeling nervous, anxious, or on edge: 1 = Several days Not being able to stop or control worryin = More than half the days Worrying too much about different things: 0 = Not at all Trouble relaxin = Several days Being so restless that it is hard to sit still: 1 = Several days Becoming easily annoyed or irritable: 0 = Not at all Feeling afraid as if something awful might happen: 1 = Several days Total KELSI-7 score (0-4 normal; 5-9 mild; 10-14 moderate; 15-21 severe): 6 Source: Developed by Drs. Desean Benjamin, Jade Sanders, Blade Mccabe and colleagues, with an educational axel from [employer] Review of Systems Const Denies fatigue, Denies fever(s) and Denies headache(s) Eyes Denies blurry vision and Denies diplopia ENT Denies dysphagia, Denies dizziness, Denies otalgia, Denies headache(s), Reports neck pain (on and off), Reports nose pain (mostly over the bridge of the nose), Denies odynophagia and Denies sore throat Card Denies chest pain, Denies palpitations and Denies dyspnea Resp Denies cough and Denies dyspnea GI Reports abdominal pain (on and off, mostly over the epigastric area), Denies hematochezia, Denies constipation, Denies dysphagia, Denies heartburn, Denies diarrhea, Denies nausea, Denies odynophagia and Denies vomiting Denies dysuria, Denies nocturia and Denies urinary frequency Musc Reports neck pain (on and off) Skin/Breast Denies rash Neuro Denies dizziness and Denies headache(s) Endo Denies fatigue and Denies palpitations Physical exam (Primary Care) Vital Signs: Last Vital Signs Pulse 82 08/25/23 13:17 BP 126/72 08/25/23 13:17 Pulse Ox 97 08/25/23 13:17 Oxygen Delivery Method Room Air 08/25/23 13:17 BMI result Body Mass Index 25.5 Tobacco/Smoking Status: Tobacco use Status Tobacco use date assessed 08/25/23 08/25/23 13:28 Patient Tobacco Use Status Never used Tobacco 08/25/23 13:28 Tobacco use type Cigarette 08/25/23 13:28 e-Cigarette/Vaping Use Never Used 08/25/23 13:28 PHQ-9: PHQ-9 Score PHQ-9: Total score 8 08/25/23 14:14 Depression Screening Interpretation: Positive Depression Screening Follow-up: Existing condition and In treatment Thrive Assessment: Date of Thrive Assessment Date Thrive assessed 08/25/23 08/25/23 13:28 Currently or been in a relationship where the following occur: no concerns reported Const General: no acute distress and alert [facility] General nose exam: Normal external nose present (but (+) tenderness over the bridge of the nose on palpation) Throat: Yes posterior oropharynx normal and Yes tonsils normal (no TP congestion) Eyes Pupils: Equal, round and reactive pupils present EOM: EOMs intact bilaterally Neck Neck: Yes no lymphadenopathy and Yes supple Resp Auscultation: clear to auscultation bilaterally, no rales and no wheezes Cardio Rate: regular rate Rhythm: regular rhythm Heart sounds: no murmurs GI Palpation (GI): Soft to palpation, Tenderness to palpation present (GI) (mild) in the epigastrum, no guarding, not rigid and No Rebound tenderness present Auscultation: normal bowel sounds General: Yes no CVA tenderness Back/Spine/Pelvis Back: no CVA tenderness Cervical Spine: cervical muscular tenderness Thoracic/Lumbar Spine: No lumbar spinal tenderness Skin Rashes: no rashes Neuro Cranial nerves: Yes Equal, round and reactive pupils present Extrem General: Yes no clubbing, cyanosis or edema Assessment and Plan Assessment & Plan (1) Nasal bone fracture: Code(s): S02.2XXA - Fracture of nasal bones, initial encounter for closed fracture Qualifiers: Encounter type: sequela Fracture type: closed Qualified Code(s): S02.2XXS - Fracture of nasal bones, sequela Plan: Patient was reportedly hit on his face accidentally by an opponent's elbow while playing basketball earlier this month on 08/05/2023, after which he fell and thinks he may have hit his head and passed out briefly He reports bleeding profusely from his nose for a while following the trauma Recalls that he was at the bathroom after the game and was experiencing some trouble breathing through his nose and thinks that he may have passed out again briefly at the time CT done at the ER revealed a minor fracture in the bridge of the nasal bone, there were no evidence of ocular fracture and CT of the head and neck all came back negative Per request, we will refer him to ENT for further evaluation and management of his nasal fracture (2) Migraine: Code(s): G43.909 - Migraine, unspecified, not intractable, without status migrainosus Qualifiers: Migraine type: unspecified Status migrainosus presence: without status migrainosus Intractability: not intractable Qualified Code(s): G43.909 - Migraine, unspecified, not intractable, without status migrainosus Plan: Reinforced again avoidance of triggers and potential triggers for his migraine headaches Continue Rizatriptan 10 mg PRN and Naproxen 500 mg BID PRN (to be taken with food) Follow up with [facility] Neurology as scheduled - Neurology is considering starting patient on prophylactic medications if his headaches persist or get worse (3) Asthma: Code(s): J45.909 - Unspecified asthma, uncomplicated Qualifiers: Asthma severity: mild Asthma persistence: intermittent Asthma complication type: uncomplicated Qualified Code(s): J45.20 - Mild intermittent asthma, uncomplicated Plan: Stable; continue Albuterol HFA 1 to 2 inhalations Q 6 hours PRN (4) Anxiety: Code(s): F41.9 - Anxiety disorder, unspecified Plan: Continue Hydroxyzine 50 mg TID PRN Follow up with psychiatry as scheduled (5) Bipolar depression: Code(s): F31.9 - Bipolar disorder, unspecified Plan: Continue Depakote 500 mg BID, Benztropine 0.5 mg BID, Olanzapine 2.5 mg QD and 15 mg Q HS and Prazosin 5 mg Q HS Follow up with psychiatry as scheduled Plan Follow up in 1 month Orders: Referrals Ear/Nose/Throat Referral S02.2XXA - Fracture of nasal bones, initial encounter for closed fracture Coding Level of Care Code Est Pt Level 3 (89630) Diagnoses Closed fracture of nasal bone, sequela S02.2XXS Encounter type: sequela Fracture type: closed Migraine without status migrainosus, not intractable, unspecified migraine type G43.909 Migraine type: unspecified Status migrainosus presence: without status migrainosus Intractability: not intractable Mild intermittent asthma without complication J45.20 Asthma severity: mild Asthma persistence: intermittent Asthma complication type: uncomplicated Anxiety F41.9 Bipolar depression F31.9
[2023-08-25 13:17] VITALS: BP 126/72; PULSE 82; O2SAT 97; BMI 25.5
== END 2023-08-25 14:20 | disposition home or self-care (01) ==
PROVIDERS: PCP Internal Medicine; Visit Provider Internal Medicine
DX: S02.2XXD Fracture of nasal bones, subsequent encounter for fracture with routine healing (principal); G43.909 Migraine, unspecified, not intractable, without status migrainosus; J45.20 Mild intermittent asthma, uncomplicated; F31.9 Bipolar disorder, unspecified
CPT/HCPCS: 99213

== ENCOUNTER 2023-09-22 09:19 | Outpatient (AMB) | payer OTHER, SELFPAY ==
[2023-09-22 09:24] VITALS: BP 132/82; PULSE 80; O2SAT 97; BMI 24.7
--- NOTE | 2023-09-22 09:24 | A.OFFPC_ITS ---
Vital Signs 09/22/23 09:24 Height 6 ft 1 in Weight 187 lb BMI 24.7 BP 132/82 Blood Pressure Location Lt brachial Position Sitting Pulse 80 Pulse Source Pulse Oximeter Pulse Oximetry (%) 97 Oxygen Delivery Method Room Air Intake Visit Reasons: anorexia, weight loss Dough Panner Required: No Accompanied by: Self / Same As Patient Allergies amphetamine [From Adderall] Allergy (Severe, Verified 09/22/23 10:09) Anaphylaxis dextroamphetamine [From Adderall] Allergy (Severe, Verified 09/22/23 10:09) Anaphylaxis seafood Allergy (Severe, Verified 09/22/23 10:09) Anaphylaxis Medication List - Last Reconciled 09/22/23 by Bryan Joseph MD benztropine 0.5 mg PO BID benztropine 0.5 mg PO BID cholecalciferol (vitamin D3) 50 mcg PO DAILY divalproex (Depakote) 500 mg PO BID divalproex (Depakote) 500 mg PO BID hydroxyzine HCl 25 mg PO BID PRN olanzapine 15 mg PO BEDTIME olanzapine (Zyprexa) 2.5 mg PO DAILY olanzapine (Zyprexa) 15 mg PO BEDTIME omeprazole 20 mg PO DAILY omeprazole 20 mg PO DAILY 30 days prazosin 5 mg PO BEDTIME prazosin 5 mg PO BEDTIME tizanidine 4 mg PO Q8H PRN 30 days Tobacco use date assessed: 09/22/23 Dental Screening Dental Screen Date: 09/22/23 Did you have a dental visit in the last 12 months?: Yes Did you have a dental problem in the last 6 months where you did not have access to dental care?: No Was dental information given to patient?: Patient has dentist HPI anorexia, weight loss HPI Details Patient comes in today for his follow up visit States that he currently feels okay although he still seems to be slowly losing weight States that he has not yet been scheduled for his upper GI series that was ordered back in May 2023 Review of his chart revealed that he was actually scheduled for an upper GI series back on 07/10/2023 but patient states that he was never contacted nor notified of this so he never knew of this appointment He has also not yet been scheduled or seen by ENT for his nasal fracture and states that he will call the ENT office on his own regarding this He is currently happy and excited that he finally found his own place to move into soon in [place] He denies any recent headaches or dizziness Denies any chest pains but reports experiencing recurrent symptoms of increased dyspnea lately, especially with exertion No nausea or vomiting noted; still has on and off abdominal pain and discomfort but states that they are not as bad as they were a few months ago No change in bowel habits noted [facility] Medical History Overweight (BMI 25.0-29.9) Vitamin D deficiency Allergic rhinitis Anxiety Bipolar depression Asthma Surgical History History of ankle surgery (~05/09/19) Family History Mother Mental health disorder Social History Housing: Apartment Alcohol intake: never Patient Tobacco Use Status: Never used Tobacco Tobacco use type: Cigarette e-Cigarette/Vaping Use: Never Used Second Hand Smoke Exposure: No Substance Use Type: Marijuana service: No Current occupational status: unemployed and disabled Cognitive needs: No Hearing needs: No Vision needs: No Questionnaire PHQ-9 Over the last 2 weeks, how often have you been bothered by any of the following problems? 1. Little interest or pleasure in doing things: several days 2. Feeling down, depressed, or hopeless: several days 3. Trouble falling or staying asleep, or sleeping too much: several days 4. Feeling tired or having little energy: more than half the days 5. Poor appetite or overeating: several days 6. Feeling bad about yourself - or that you are a failure or have let yourself or your family down: not at all 7. Trouble concentrating on things, such as reading the newspaper or watching television: more than half the days 8. Moving or speaking so slowly that other people could have noticed. Or the opposite - being so fidgety or restless that you have been moving around a lot more than usual: not at all 9. Thoughts that you would be better off or of hurting yourself in some way: not at all Total score: 8 Depression Screening Interpretation: Positive Depression Screening Follow-up: Existing condition and In treatment Depression Screening Done: Yes 73000 - PHQ-9 Billing: Yes Source: Developed by Drs. Desean Benjamin, Jade Sanders, Blade Mccabe and colleagues, with an educational axel from [employer]. Thrive Questionnaire Date Thrive assessed: 09/22/23 I am a: Patient What is your living situation today?: I have a place to live, but I am worried about losing it in the future Within the past 12 months, did the food you bought not last and you didn't have the money to get more?: Sometimes True Within the past 12 months, did you worry whether your food would run out before you got money to buy more?: Sometimes True Do you have trouble paying for medicines?: No Do you have trouble getting transportation to medical appointments?: No Do you have trouble paying your heating and electricity bill?: No Do you have trouble taking care of your child, family member or friend?: No Do you have trouble with day-to-day activities such as bathing, preparing meals, shopping, managing finances, etc.?: No Are you currently unemployed and looking for a job?: No Are you interested in more education?: No Please select the resources that you would like help with: None Currently or been in a relationship where the following occur: no concerns reported AUDIT C Alcohol Use Questionnaire (AUDIT-C) 1. How often do you have a drink containing alcohol?: Never 3. How often do you have six or more drinks on one occasion?: Never Total Score: 0 Score Reviewed/Action Taken: Yes KELSI-7 AMB Questionnaire KELSI-7 Date KELSI - 7 assessed: 09/22/23 Feeling nervous, anxious, or on edge: 1 = Several days Not being able to stop or control worryin = More than half the days Worrying too much about different things: 0 = Not at all Trouble relaxin = Several days Being so restless that it is hard to sit still: 1 = Several days Becoming easily annoyed or irritable: 0 = Not at all Feeling afraid as if something awful might happen: 1 = Several days Total KELSI-7 score (0-4 normal; 5-9 mild; 10-14 moderate; 15-21 severe): 6 Source: Developed by Jade Marcos B.W. Tommy, Blade Mccabe and colleagues, with an educational axel from [employer]. Review of Systems Const Denies chills, Denies fatigue, Denies fever(s), Denies headache(s) (better controlled) and Reports weight loss ENT Denies dysphagia, Denies dizziness, Denies otalgia, Denies headache(s) (better controlled), Denies neck pain, Reports nose pain (mostly over the bridge of the nose), Denies odynophagia and Denies sore throat Card Denies chest pain, Denies palpitations and Reports dyspnea on exertion (recurrent lately) Resp Denies cough and Reports dyspnea on exertion (recurrent lately) GI Reports abdominal pain (on and off, mostly over the epigastric area - better lately), Denies hematochezia, Denies constipation, Denies dysphagia, Denies heartburn, Denies diarrhea, Denies nausea, Denies odynophagia and Denies vomiting Denies dysuria, Denies nocturia and Denies urinary frequency Musc Denies neck pain Skin/Breast Denies rash Neuro Denies dizziness and Denies headache(s) (better controlled) Endo Denies fatigue and Denies palpitations Physical exam (Primary Care) Vital Signs: Last Vital Signs Pulse 80 09/22/23 09:24 BP 132/82 09/22/23 09:24 Pulse Ox 97 09/22/23 09:24 Oxygen Delivery Method Room Air 09/22/23 09:24 BMI result Body Mass Index 24.7 Tobacco/Smoking Status: Tobacco use Status Tobacco use date assessed 09/22/23 09/22/23 09:25 Patient Tobacco Use Status Never used Tobacco 09/22/23 09:25 Tobacco use type Cigarette 09/22/23 09:25 e-Cigarette/Vaping Use Never Used 09/22/23 09:25 PHQ-9: PHQ-9 Score PHQ-9: Total score 8 09/22/23 10:09 Depression Screening Interpretation: Positive Depression Screening Follow-up: Existing condition and In treatment Thrive Assessment: Date of Thrive Assessment Date Thrive assessed 09/22/23 09/22/23 09:25 Currently or been in a relationship where the following occur: no concerns reported Const General: no acute distress and alert HENMT Ears: TM's normal bilaterally and EAC's normal General nose exam: Normal external nose present ((+) mild tenderness over the bridge of the nose on palpation) Throat: Yes posterior oropharynx normal and Yes tonsils normal (no TP congestion) Neck Neck: Yes no lymphadenopathy and Yes supple Resp Auscultation: clear to auscultation bilaterally, no rales and no wheezes Cardio Rate: regular rate Rhythm: regular rhythm Heart sounds: no murmurs GI Palpation (GI): Soft to palpation, Tenderness to palpation present (GI) (mild) in the epigastrum, no guarding, not rigid and No Rebound tenderness present Auscultation: normal bowel sounds General: Yes no CVA tenderness Back/Spine/Pelvis Back: no CVA tenderness Cervical Spine: cervical muscular tenderness Thoracic/Lumbar Spine: No lumbar spinal tenderness Skin General skin exam: no rashes or lesions noted Rashes: no rashes Extrem General: Yes no clubbing, cyanosis or edema Assessment and Plan Assessment & Plan (1) Abdominal pain: Code(s): R10.9 - Unspecified abdominal pain Qualifiers: Abdominal location: epigastric Qualified Code(s): R10.13 - Epigastric pain Plan: Reinforced dietary restrictions Continue Omeprazole 20 mg QD, which appears to have helped him a lot He was sent for an upper GI series for further evaluation back in May 2023 and it appears that he was scheduled for this on 07/10/23 but patient claims that he was never notified about this so he did not show up then for his procedure Have advised him to reach out to radiology and try to get this rescheduled AARON - have advised that he can ask the front office for help/advice on this when he checks out later (2) Unintentional weight loss: Code(s): R63.4 - Abnormal weight loss Plan: This appears to have slowed down recently and patient does not appear to be as worried about this as he was a few months ago May have been also, at least partly, due to or related to his anxiety Have reassured patient that his labs done a few months ago to look into his weight loss have all come back normal/negative (3) Nasal bone fracture: Code(s): S02.2XXA - Fracture of nasal bones, initial encounter for closed fracture Qualifiers: Encounter type: sequela Fracture type: closed Qualified Code(s): S02.2XXS - Fracture of nasal bones, sequela Plan: States that his previous nose pain has improved a lot since Patient was reportedly hit on his face accidentally by an opponent's elbow while playing basketball early last month on 08/05/2023, after which he fell and thinks he may have hit his head and passed out briefly He reports bleeding profusely from his nose for a while following the trauma Recalls that he was at the bathroom after the game and was experiencing some trouble breathing through his nose and thinks that he may have passed out again briefly at the time CT done at the ER revealed a minor fracture in the bridge of the nasal bone, there were no evidence of ocular fracture and CT of the head and neck all came back negative Per request, he was referred to ENT for further evaluation and management of his nasal fracture but he has not been seen or scheduled for an appointment yet - patient states that he will try to call the ENT office on his own to schedule this Advised that since his pain appears to have subsided significantly and his nasal fracture was mostly a non-displaced fracture, ENT may not necessarily recommend ay other intervention at this time (4) Migraine: Code(s): G43.909 - Migraine, unspecified, not intractable, without status migrainosus Qualifiers: Intractability: not intractable Migraine type: unspecified Status migrainosus presence: without status migrainosus Qualified Code(s): G43.909 - Migraine, unspecified, not intractable, without status migrainosus Plan: Reinforced again avoidance of triggers and potential triggers for his migraine headaches Continue Rizatriptan 10 mg PRN and Naproxen 500 mg BID PRN (to be taken with food) Follow up with [facility] as scheduled - Neurology is considering starting patient on prophylactic medications if his headaches persist or get worse (5) Asthma: Code(s): J45.909 - Unspecified asthma, uncomplicated Qualifiers: Asthma complication type: uncomplicated Asthma persistence: intermittent Asthma severity: mild Qualified Code(s): J45.20 - Mild intermittent asthma, uncomplicated Plan: Continue Albuterol HFA 1 to 2 inhalations Q 6 hours PRN As he is reporting some recurrent dyspnea symptoms lately, especially with exertion, will send him for PFTs for further evaluation (6) Vitamin D deficiency: Code(s): E55.9 - Vitamin D deficiency, unspecified Plan: Continue Vitamin D3 2000 units QD (7) Anxiety: Code(s): F41.9 - Anxiety disorder, unspecified Plan: Continue Hydroxyzine 50 mg TID PRN Follow up with psychiatry as scheduled (8) Bipolar depression: Code(s): F31.9 - Bipolar disorder, unspecified Plan: Continue Depakote 500 mg BID, Benztropine 0.5 mg BID, Olanzapine 2.5 mg QD and 15 mg Q HS and Prazosin 5 mg Q HS Follow up with psychiatry as scheduled Plan Follow up in 4 months Orders: Orders PFT pulmonary function test Today R06.00 - Dyspnea, unspecified Coding Level of Care Code Est Pt Level 4 (43669) Diagnoses Epigastric pain R10.13 Abdominal location: epigastric Unintentional weight loss R63.4 Closed fracture of nasal bone, sequela S02.2XXS Encounter type: sequela Fracture type: closed Migraine without status migrainosus, not intractable, unspecified migraine type G43.909 Intractability: not intractable Migraine type: unspecified Status migrainosus presence: without status migrainosus Mild intermittent asthma without complication J45.20 Asthma complication type: uncomplicated Asthma persistence: intermittent Asthma severity: mild Vitamin D deficiency E55.9 Anxiety F41.9 Bipolar depression F31.9
== END 2023-09-22 10:20 | disposition home or self-care (01) ==
PROVIDERS: PCP Internal Medicine; Visit Provider Internal Medicine
DX: R10.13 Epigastric pain (principal); F31.9 Bipolar disorder, unspecified; R63.4 Abnormal weight loss; S02.2XXS Fracture of nasal bones, sequela; G43.909 Migraine, unspecified, not intractable, without status migrainosus; J45.20 Mild intermittent asthma, uncomplicated; E55.9 Vitamin D deficiency, unspecified; F41.9 Anxiety disorder, unspecified
CPT/HCPCS: 99214

== ENCOUNTER 2023-11-06 08:41 | Outpatient (REF) | payer OTHER, SELFPAY ==
--- NOTE | 2023-11-06 09:44 | PFT_ITS ---
Flows: FEV1: 88 % of predicted at 3.62 L FVC: 84 % of predicted at 4.16 L FEV1/FVC: 87 % Bronchodilator response: Present in small to medium airways only Volumes: Total lung capacity: 71 % of predicted at 5.36 L Residual volume: 66 % of predicted at 1.06 L Slow vital capacity: 73 % of predicted at 4.30 L Expiratory reserve volume: 52 % of predicted at 1.02 L Diffusion capacity: Normal Impression: Mild restrictive ventilatory defect with bronchodilator response in small to medium airways only. MTDD
== END 2023-11-06 08:42 | disposition home or self-care (01) ==
LOC: HO.RESP 08:41
PROVIDERS: PCP Internal Medicine; Visit Provider Internal Medicine
DX: R06.00 Dyspnea, unspecified (principal); J45.909 Unspecified asthma, uncomplicated
CPT/HCPCS: 94010; 94727; 94729

== ENCOUNTER → 2023-11-06 09:44 | Outpatient (BNV) | payer OTHER, SELFPAY | PROVIDERS: PCP Internal Medicine; Visit Provider Internal Medicine Pulmonary Disease | DX: R06.00 Dyspnea, unspecified (principal) | CPT/HCPCS: 94060; 94727; 94729 ==

== ENCOUNTER 2024-03-04 12:01 | Outpatient (AMB) | payer OTHER, SELFPAY ==
[2024-03-04 12:05] VITALS: BP 122/70; BMI 24.5
--- NOTE | 2024-03-04 12:05 | A.OFFPC_ITS ---
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 Accompanied by: Self / Same As Patient Allergies amphetamine [From Adderall] Allergy (Severe, Verified 03/04/24 12:35) Anaphylaxis dextroamphetamine [From Adderall] Allergy (Severe, Verified 03/04/24 12:35) Anaphylaxis seafood Allergy (Severe, Verified 03/04/24 12:35) Anaphylaxis chlorine bleach in water Adverse Reaction (Intermediate, Uncoded 03/04/24 12:35) rash Medication List - Last Reconciled 03/04/24 by Bryan Joseph MD benztropine 0.5 mg PO BID cholecalciferol (vitamin D3) 50 mcg PO DAILY divalproex (Depakote) 500 mg PO BID epinephrine (EpiPen 2-Jerel) 0.3 mg (0.3 mL) IM Q4H PRN hydroxyzine HCl 25 mg PO BID PRN olanzapine 15 mg PO BEDTIME olanzapine (Zyprexa) 2.5 mg PO DAILY omeprazole 20 mg PO DAILY 30 days prazosin 5 mg PO BEDTIME tizanidine 4 mg PO Q8H PRN 30 days Tobacco use date assessed: 03/04/24 Dental Screening Dental Screen Date: 03/04/24 Did you have a dental visit in the last 12 months?: Yes Did you have a dental problem in the last 6 months where you did not have access to dental care?: No Was dental information given to patient?: Patient has dentist HPI asthma, weight loss, migraine HPI Details Patient comes in today for his follow up visit States that he still has not been able to get his previously ordered upper GI series done - this was initially ordered back in May 2023 to look into his unexplained weight loss back then He was originally scheduled for this in July 2023 but he missed his procedure then and has not been able to get it rescheduled since States that his weight loss appeared to have slowed down and stabilized since but he has not been able to gain the weight that he lost back He denies any nausea, vomiting or abdominal pain but still has occasional abdominal (epigastric) discomfort He denies any fever, headaches or dizziness Denies any chest pains, no increased SOB although he relates (+) chest tightness often and uses his Albuterol inhaler at least 1 to 2 times a day regularly for relief No change in bowel habits noted He also has a hyperpigmented, raised cyst over the posterior aspect of the left lower leg that he's had for a while now and would like to see someone to have this removed if possible [facility] Medical History Overweight (BMI 25.0-29.9) Vitamin D deficiency Allergic rhinitis Anxiety Bipolar depression Asthma Surgical History History of ankle surgery (~05/09/19) Family History Mother Mental health disorder Social History Housing: Apartment Alcohol intake: never Patient Tobacco Use Status: Never used Tobacco e-Cigarette/Vaping Use: Never Used Second Hand Smoke Exposure: No Substance Use Type: Marijuana service: No Current occupational status: unemployed and disabled Cognitive needs: No Hearing needs: No Vision needs: No Questionnaire PHQ-9 Over the last 2 weeks, how often have you been bothered by any of the following problems? 1. Little interest or pleasure in doing things: more than half the days 2. Feeling down, depressed, or hopeless: more than half the days 3. Trouble falling or staying asleep, or sleeping too much: several days 4. Feeling tired or having little energy: not at all 5. Poor appetite or overeating: several days 6. Feeling bad about yourself - or that you are a failure or have let yourself or your family down: several days 7. Trouble concentrating on things, such as reading the newspaper or watching television: not at all 8. Moving or speaking so slowly that other people could have noticed. Or the opposite - being so fidgety or restless that you have been moving around a lot more than usual: several days 9. Thoughts that you would be better off or of hurting yourself in some way: not at all Total score: 8 Depression Screening Interpretation: Positive Depression Screening Follow-up: Existing condition and In treatment Depression Screening Done: Yes [id number] - PHQ-9 Billing: Yes Source: Developed by Drs. Desean Benjamin, Jade Sanders, Blade Mccabe and colleagues, with an educational axel from [employer]. Thrive Questionnaire Date Thrive assessed: 03/04/24 I am a: Patient What is your living situation today?: I have a steady place to live Within the past 12 months, did the food you bought not last and you didn't have the money to get more?: Never true Within the past 12 months, did you worry whether your food would run out before you got money to buy more?: Never true Do you have trouble paying for medicines?: No Do you have trouble getting transportation to medical appointments?: No Do you have trouble paying your heating and electricity bill?: No Do you have trouble taking care of your child, family member or friend?: No Do you have trouble with day-to-day activities such as bathing, preparing meals, shopping, managing finances, etc.?: No Are you currently unemployed and looking for a job?: No Are you interested in more education?: No Please select the resources that you would like help with: None Currently or been in a relationship where the following occur: no concerns reported THRIVE Score: 0 AUDIT C Alcohol Use Questionnaire (AUDIT-C) 1. How often do you have a drink containing alcohol?: Never 3. How often do you have six or more drinks on one occasion?: Never Total Score: 0 Score Reviewed/Action Taken: Yes KELSI-7 AMB Questionnaire KELSI-7 Date KELSI - 7 assessed: 03/04/24 Feeling nervous, anxious, or on edge: 3 = Nearly every day Not being able to stop or control worryin = Several days Worrying too much about different things: 2 = More than half the days Trouble relaxin = More than half the days Being so restless that it is hard to sit still: 1 = Several days Becoming easily annoyed or irritable: 2 = More than half the days Feeling afraid as if something awful might happen: 1 = Several days Total KELSI-7 score (0-4 normal; 5-9 mild; 10-14 moderate; 15-21 severe): 12 Source: Developed by Drs. Desean Benjamin, Jade Sanders, Blade Mccabe and colleagues, with an educational axel from [employer]. Review of Systems Const Denies chills, Denies fatigue, Denies fever(s) and Denies headache(s) (better controlled) ENT Denies dysphagia, Denies dizziness, Denies otalgia, Denies headache(s) (better controlled), Denies neck pain, Denies odynophagia and Denies sore throat Card Denies chest pain, Denies palpitations and Reports dyspnea on exertion (recurrent) Resp Denies chest congestion (but chest feels tight often), Reports cough (occasional, non-productive), Reports dyspnea on exertion (recurrent) and Denies wheezing GI Denies abdominal pain (but (+) on and off epigastric discomfort), Denies hematochezia, Denies constipation, Denies dysphagia, Denies heartburn, Denies diarrhea, Denies nausea, Denies odynophagia and Denies vomiting Denies dysuria, Denies nocturia and Denies urinary frequency Musc Denies back pain and Denies neck pain Skin/Breast Reports as per HPI, Reports lesions (over the back of his left lower leg - see HPI) and Denies rash Neuro Denies dizziness and Denies headache(s) (better controlled) Endo Denies fatigue and Denies palpitations Aller/Immun Denies wheezing Physical exam (Primary Care) Vital Signs: Last Vital Signs BP 122/70 03/04/24 12:05 BMI result Body Mass Index 24.5 Tobacco/Smoking Status: Tobacco use Status Tobacco use date assessed 03/04/24 03/04/24 12:14 Patient Tobacco Use Status Never used Tobacco 03/04/24 12:14 Tobacco use type 03/04/24 12:14 e-Cigarette/Vaping Use Never Used 03/04/24 12:14 PHQ-9: PHQ-9 Score PHQ-9: Total score 8 03/04/24 12:47 Depression Screening Interpretation: Positive Depression Screening Follow-up: Existing condition and In treatment Thrive Assessment: Date of Thrive Assessment Date Thrive assessed 03/04/24 03/04/24 12:14 Currently or been in a relationship where the following occur: no concerns reported Const General: no acute distress and alert HENMT Ears: TM's normal bilaterally and EAC's normal Throat: Yes posterior oropharynx normal and Yes tonsils normal (no TP congestion) Neck Neck: Yes no lymphadenopathy and Yes supple Thyroid: Thyroid normal Resp Auscultation: no crackles, no rales, wheezes (occasional, faint) expiratory wheezes and diminished lung sounds bilateral Cardio Rate: regular rate Rhythm: regular rhythm Heart sounds: no murmurs GI Palpation (GI): Soft to palpation, Tenderness to palpation present (GI) (minimal, on deep palpation) in the epigastrum, no guarding, not rigid and No Rebound tenderness present Auscultation: normal bowel sounds General: Yes no CVA tenderness Back/Spine/Pelvis Back: no CVA tenderness Thoracic/Lumbar Spine: No lumbar spinal tenderness Skin Other: (+) small, raised, hyperpigmented cyst over the posterior aspect of the left lower leg Rashes: no rashes Extrem General: Yes no clubbing, cyanosis or edema Assessment and Plan Assessment & Plan (1) Asthma: Code(s): J45.909 - Unspecified asthma, uncomplicated Qualifiers: Asthma severity: mild Asthma persistence: intermittent Asthma complication type: uncomplicated Qualified Code(s): J45.20 - Mild intermittent asthma, uncomplicated Plan: Patient is advised that based on his recent symptoms and auscultations of his lungs today , his asthma is not adequately controlled Will start him on Pulmicort Flexhaler 90 mcg 2 inhalations BID; continue Albuterol HFA 1 to 2 inhalations Q 6 hours PRN His PFTs done back in December 2023 showed findings consistent with asthma (2) Epidermoid cyst: Comment: over the posterior aspect of the left lower leg Code(s): L72.0 - Epidermal cyst Plan: Will refer him to dermatology for further evaluation and surgical excision, if appropriate (3) Abdominal pain: Code(s): R10.9 - Unspecified abdominal pain Qualifiers: Abdominal location: epigastric Qualified Code(s): R10.13 - Epigastric pain Plan: Suspect that he has gastritis Reinforced dietary restrictions Continue Omeprazole 20 mg QD He was sent for an upper GI series for further evaluation back in May 2023 and was originally scheduled to have this done on 07/10/23 but patient claims that he was never notified about this so he did not show up then for his procedure We have advised him to reach out to radiology and try to get this rescheduled AARON but states that he has not been able to do so Will reorder his upper GI series again to be done AARON (4) Migraine: Code(s): G43.909 - Migraine, unspecified, not intractable, without status migrainosus Qualifiers: Migraine type: unspecified Status migrainosus presence: without status migrainosus Intractability: not intractable Qualified Code(s): G43.909 - Migraine, unspecified, not intractable, without status migrainosus Plan: Reinforced again avoidance of triggers and potential triggers for his migraine headaches Continue Rizatriptan 10 mg PRN and Naproxen 500 mg BID PRN (to be taken with food) Follow up with [facility] as scheduled - Neurology is considering starting patient on prophylactic medications if his headaches persist or get worse (5) Vitamin D deficiency: Code(s): E55.9 - Vitamin D deficiency, unspecified Plan: Continue Vitamin D3 2000 units QD (6) Anxiety: Code(s): F41.9 - Anxiety disorder, unspecified Plan: Continue Hydroxyzine 25 mg BID PRN Follow up with psychiatry as scheduled (7) Bipolar depression: Code(s): F31.9 - Bipolar disorder, unspecified Plan: Continue Depakote 500 mg BID, Benztropine 0.5 mg BID, Olanzapine 2.5 mg QD and 15 mg Q HS and Prazosin 5 mg Q HS Follow up with psychiatry as scheduled Plan Follow up in 4 months Orders: Orders [place] upper GI w air w SBFT 03/04/24 R10.13 - Epigastric pain, R63.4 - Abnormal weight loss Referrals Dermatology Referral L72.0 - Epidermal cyst Medications: New budesonide 90 mcg/actuation (Pulmicort Flexhaler) 1 inh inhalation BID 1 ea 5RF Coding Level of Care Code Est Pt Level 4 (54970) Diagnoses Mild intermittent asthma without complication J45.20 Asthma severity: mild Asthma persistence: intermittent Asthma complication type: uncomplicated Epidermoid cyst L72.0 Epigastric pain R10.13 Abdominal location: epigastric Migraine without status migrainosus, not intractable, unspecified migraine type G43.909 Migraine type: unspecified Status migrainosus presence: without status migrainosus Intractability: not intractable Vitamin D deficiency E55.9 Anxiety F41.9 Bipolar depression F31.9
== END 2024-03-04 13:00 | disposition home or self-care (01) ==
PROVIDERS: PCP Internal Medicine; Visit Provider Internal Medicine
DX: J45.20 Mild intermittent asthma, uncomplicated (principal); F31.9 Bipolar disorder, unspecified; L72.0 Epidermal cyst; R10.13 Epigastric pain; G43.909 Migraine, unspecified, not intractable, without status migrainosus; E55.9 Vitamin D deficiency, unspecified; F41.9 Anxiety disorder, unspecified
CPT/HCPCS: 99214

== ENCOUNTER 2024-03-29 21:06 | Emergency (ER) | payer OTHER, SELFPAY ==
--- NOTE | ~2024-03-29 | XR_ITS ---
EXAMINATION: XR ANKLE, LEFT CLINICAL INFORMATION: blunt ankle injury COMPARISON: Left ankle 10/15/2022 TECHNIQUE: AP, lateral, and mortise views of the left ankle. FINDINGS: There is pes cavus cavum. No fracture. Alignment is anatomic. No erosions. Joint spaces are maintained. Soft tissues are normal. Partial visualization of metatarsal hardware. XR/XR ankle LT min 3V IMPRESSION: No acute fractures or subluxations.
[2024-03-29 21:20] VITALS: BP 125/69; BP 146/80; PULSE 74; PULSE 76; RESP 16; TEMP 36.6; O2SAT 96; BMI 26.2
--- NOTE | 2024-03-29 21:24 | PC.NURSE ---
pt reports some SI thoughts earlier today which now he feels unsure of. pt does not deny si but denies having a plan. pt denies HI. 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 neno ding aware. rn shift mgr aware of need for sitter.
--- NOTE | 2024-03-29 21:32 | PC.NURSE ---
Dr. Hawkins to bedside for assessment of patient. upon completing assessment per Dr. Hawkins no need for pattern changer/sitter/psych evaluation.
--- NOTE | 2024-03-29 22:57 | ED_ITS ---
HPI - Extremity Injury (Lower) General Chief Complaint: Extremity Injury, Lower Stated Complaint: ankle struck by pallet at work, slight swelling Time Seen by Provider: 03/29/24 21:25 Source: patient Mode of arrival: ambulatory Limitations: no limitations History of Present Illness ED Provider: brittni GILL Narrative: Patient's history of remote injury the left ankle status post ORIF earlier today palate fell on his left foot complaining of pain unable to ambulate because of pain mostly localized to the dorsum of the foot patient also with bipolar disorder feels safe to go home had bad days earlier smashed his phone but he feels okay now denied any SI Related Data Home Medications ?Medication ?Instructions ?Recorded ?Confirmed hydroxyzine HCl 25 mg tablet 25 mg PO BID PRN Anxiety 09/06/22 03/04/24 olanzapine 2.5 mg tablet (Zyprexa) 2.5 mg PO DAILY 09/06/22 03/04/24 benztropine 0.5 mg tablet 0.5 mg PO BID 08/14/23 03/04/24 Previous Rx's ?Medication ?Instructions ?Recorded tizanidine 4 mg tablet 4 mg PO Q8H PRN muscle spasms 30 05/29/23 days #90 tabs divalproex 500 mg tablet,delayed 500 mg PO BID #14 tabs 08/17/23 release (Depakote) olanzapine 15 mg tablet 15 mg PO BEDTIME #7 tabs 08/17/23 prazosin 5 mg capsule 5 mg PO BEDTIME #7 caps 08/17/23 cholecalciferol (vitamin D3) 50 50 mcg PO DAILY #90 caps 02/04/24 mcg (2,000 unit) capsule omeprazole 20 mg capsule,delayed 20 mg PO DAILY 30 days #30 caps 02/13/24 release epinephrine 0.3 mg/0.3 mL 0.3 mg (0.3 mL) IM Q4H PRN 02/16/24 injection, auto-injector (EpiPen anaphylaxis #2 ea 2-Jerel) budesonide 90 mcg/actuation breath 1 inh inhalation BID #1 ea 03/04/24 activated powder inhaler (Pulmicort Flexhaler) ibuprofen 600 mg tablet 600 mg PO Q6H PRN fever or pain 03/29/24 #30 tabs Allergies Allergy/AdvReac Type Severity Reaction Status Date / Time amphetamine [From Adderall] Allergy Severe Anaphylaxis Verified 03/29/24 21:23 dextroamphetamine Allergy Severe Anaphylaxis Verified 03/29/24 21:23 [From Adderall] seafood Allergy Severe Anaphylaxis Verified 03/29/24 21:23 chlorine bleach in water AdvReac Intermediate rash Uncoded 03/29/24 21:23 Review of Systems 2 Review of Systems: Yes all other systems are reviewed and are negative [facility] Past Medical History Medical History Sickle cell trait Overweight (BMI 25.0-29.9) Vitamin D deficiency Allergic rhinitis Anxiety Bipolar depression Asthma Surgical History History of ankle surgery (~05/09/19) Family History Family History Mother Mental health disorder Social History Social History Housing: Apartment Alcohol intake: never Patient Tobacco Use Status: Never used Tobacco e-Cigarette/Vaping Use: Never Used Second Hand Smoke Exposure: No Substance Use Type: Marijuana Advance Directives: No Advance Directives Information Provided: Yes service: No Current occupational status: unemployed and disabled Cognitive needs: No Hearing needs: No Vision needs: No Physical Exam 2 Vital Signs: Vital Signs: Last Vital Signs Temp 97.8 F 03/29/24 21:20 Pulse 74 03/29/24 21:20 Resp 16 03/29/24 21:20 BP 125/69 03/29/24 21:20 Pulse Ox 96 03/29/24 21:20 O2 Del Method Room Air 03/29/24 21:20 BMI result Body Mass Index 26.2 Extrem: Ankle/foot/toe images: 1. Diffuse tenderness soft tissue swelling no deformity neurovascular intact Medical Decision Making Medical Decision Making MDM Narrative: Patient with minor contusion of the left foot discharge patient home on ibuprofen use Bran wrap patient will follow with psychiatrist for his depression at this time patient denied any SI or depression Independent Interpretation I performed an independent interpretation of an: Plain X-Ray Radiology Impression Discussion of test interpretation with radiology: I have reviewed the radiologist's reading. Discharge Plan Discharge Clinical Impression: Contusion of foot, left Patient Disposition: Home, Self-Care Instructions: Foot Contusion (ED) Additional Instructions: Bran wrap for support Ibuprofen for pain X-ray negative for fracture Prescriptions: New ibuprofen 600 mg tablet 600 mg PO Q6H PRN (Reason: fever or pain) Qty: 30 0RF No Action cholecalciferol (vitamin D3) 50 mcg (2,000 unit) capsule 50 mcg PO DAILY Qty: 90 2RF omeprazole 20 mg capsule,delayed release(DR/EC) 20 mg PO DAILY 30 Days Qty: 30 3RF epinephrine [EpiPen 2-Jerel] 0.3 mg/0.3 mL auto-injector 0.3 mg IM Q4H PRN (Reason: anaphylaxis) Qty: 2 0RF benztropine 0.5 mg tablet 0.5 mg PO BID prazosin 5 mg capsule 5 mg PO BEDTIME Qty: 7 0RF divalproex [Depakote] 500 mg tablet,delayed release (DR/EC) 500 mg PO BID Qty: 14 0RF olanzapine 15 mg tablet 15 mg PO BEDTIME Qty: 7 0RF olanzapine [Zyprexa] 2.5 mg tablet 2.5 mg PO DAILY hydroxyzine HCl 25 mg tablet 25 mg PO BID PRN (Reason: Anxiety) tizanidine 4 mg tablet 4 mg PO Q8H PRN (Reason: muscle spasms) 30 Days Qty: 90 0RF Pulmicort Flexhaler 90 mcg/actuation aerosol powdr breath activated 1 inh inhalation BID Qty: 1 5RF Print Language: Luxembourgish
[2024-03-29] MEDS: Ibuprofen 600 MG TABLET PO (23:23)
[2024-03-29 23:33] VITALS: BP 125/69; PULSE 74; RESP 16; TEMP 36.6; O2SAT 96
== END 2024-03-29 23:34 | disposition home or self-care (01) ==
PROVIDERS: Emergency Provider Internal Medicine; PCP Internal Medicine
DX: S90.32XA Contusion of left foot, initial encounter (principal); W20.8XXA Other cause of strike by thrown, projected or falling object, initial encounter; Y93.9 Activity, unspecified; Y92.89 Other specified places as the place of occurrence of the external cause; Y99.0 Civilian activity done for income or pay
CPT/HCPCS: 73610; 99283

== ENCOUNTER 2024-07-13 13:46 | Outpatient (AMB) | payer OTHER, SELFPAY ==
[2024-07-13 13:47] VITALS: BP 110/82; PULSE 78; O2SAT 99; BMI 24.3
--- NOTE | 2024-07-13 13:47 | MHC.PC.OV ---
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 Required: No Accompanied by: Self / Same As Patient Allergies amphetamine [From Adderall] Allergy (Severe, Verified 07/13/24 14:10) Anaphylaxis dextroamphetamine [From Adderall] Allergy (Severe, Verified 07/13/24 14:10) Anaphylaxis seafood Allergy (Severe, Verified 07/13/24 14:10) Anaphylaxis chlorine bleach in water Adverse Reaction (Intermediate, Uncoded 07/13/24 14:10) rash Medication List - Last Reconciled 07/13/24 by Bryan Joseph MD benztropine 0.5 mg PO BID cholecalciferol (vitamin D3) 50 mcg PO DAILY divalproex (Depakote) 500 mg PO BID epinephrine (EpiPen 2-Jerel) 0.3 mg (0.3 mL) IM Q4H PRN fluticasone furoate 100 mcg/actuation (Arnuity Ellipta) 1 inh inhalation DAILY hydroxyzine HCl 25 mg PO BID PRN ibuprofen 600 mg PO Q6H PRN olanzapine 15 mg PO BEDTIME olanzapine (Zyprexa) 2.5 mg PO DAILY omeprazole 20 mg PO DAILY 30 days prazosin 5 mg PO BEDTIME tizanidine 4 mg PO Q8H PRN 30 days Tobacco use date assessed: 07/13/24 Dental Screening Dental Screen Date: 07/13/24 Did you have a dental visit in the last 12 months?: Yes Did you have a dental problem in the last 6 months where you did not have access to dental care?: No Was dental information given to patient?: Patient has dentist HPI [facility] f/u HPI Details Patient comes in today for his follow up visit States that he still has on and off abdominal (epigastric) discomfort and still has not been able to get his previously ordered upper GI series done yet He denies any nausea or vomiting and denies any increased abdominal pain and just has the on and off epigastric discomfort at present His upper GI series was initially ordered back in May 2023 to look into his unexplained weight loss and GI symptoms and the test was originally scheduled for July 2023 but he missed his procedure then He had it rescheduled out to May 2024 but he also missed this again - claims that he was never contacted and made aware of this scheduled test States that his previous weight loss appears to have stabilized since but he still has not been able to gain the weight that he lost back He denies any fever, headaches or dizziness Denies any chest pains, no increased SOB - states that his respiratory symptoms have improved significantly since he started using his inhalers as prescribed No change in bowel habits noted He was also previously referred to dermatology for a hyperpigmented, raised cyst over the posterior aspect of the left lower leg that he's had for a while now but states that he has not yet been contacted by dermatology for an appointment He is also requesting for a referral to ophthalmology again - he was referred to them about a year ago for further evaluation of his blurred vision but he was never seen [facility] Medical History Sickle cell trait Overweight (BMI 25.0-29.9) Vitamin D deficiency Allergic rhinitis Anxiety Bipolar depression Asthma Surgical History History of ankle surgery (~05/09/19) Family History Mother Mental health disorder Social History Housing: Apartment Alcohol intake: never Patient Tobacco Use Status: Never used Tobacco e-Cigarette/Vaping Use: Never Used Second Hand Smoke Exposure: No Substance Use Type: Marijuana service: No Current occupational status: unemployed and disabled Cognitive needs: No Hearing needs: No Vision needs: No Questionnaire PHQ-9 Over the last 2 weeks, how often have you been bothered by any of the following problems? 1. Little interest or pleasure in doing things: more than half the days 2. Feeling down, depressed, or hopeless: more than half the days 3. Trouble falling or staying asleep, or sleeping too much: several days 4. Feeling tired or having little energy: not at all 5. Poor appetite or overeating: several days 6. Feeling bad about yourself - or that you are a failure or have let yourself or your family down: several days 7. Trouble concentrating on things, such as reading the newspaper or watching television: not at all 8. Moving or speaking so slowly that other people could have noticed. Or the opposite - being so fidgety or restless that you have been moving around a lot more than usual: several days 9. Thoughts that you would be better off or of hurting yourself in some way: not at all Total score: 8 Depression Screening Interpretation: Positive Depression Screening Follow-up: Existing condition and In treatment Depression Screening Done: Yes 47074 - PHQ-9 Billing: Yes Source: Developed by Drs. Desean Benjamin, Jade Sanders, Blade Mccabe and colleagues, with an educational axel from [employer]. Thrive Questionnaire Date Thrive assessed: 07/13/24 I am a: Patient What is your living situation today?: I have a steady place to live Within the past 12 months, did the food you bought not last and you didn't have the money to get more?: Never true Within the past 12 months, did you worry whether your food would run out before you got money to buy more?: Never true Do you have trouble paying for medicines?: No Do you have trouble getting transportation to medical appointments?: No Do you have trouble paying your heating and electricity bill?: No Do you have trouble taking care of your child, family member or friend?: No Do you have trouble with day-to-day activities such as bathing, preparing meals, shopping, managing finances, etc.?: No Are you currently unemployed and looking for a job?: No Are you interested in more education?: No Please select the resources that you would like help with: None Currently or been in a relationship where the following occur: No concerns reported THRIVE Score: 0 AUDIT C Alcohol Use Questionnaire (AUDIT-C) 1. How often do you have a drink containing alcohol?: Never 3. How often do you have six or more drinks on one occasion?: Never Total Score: 0 Score Reviewed/Action Taken: Yes KELSI-7 AMB Questionnaire KELSI-7 Date KELSI - 7 assessed: 07/13/24 Feeling nervous, anxious, or on edge: 3 = Nearly every day Not being able to stop or control worryin = Several days Worrying too much about different things: 2 = More than half the days Trouble relaxin = More than half the days Being so restless that it is hard to sit still: 1 = Several days Becoming easily annoyed or irritable: 2 = More than half the days Feeling afraid as if something awful might happen: 1 = Several days Total KELSI-7 score (0-4 normal; 5-9 mild; 10-14 moderate; 15-21 severe): 12 Source: Developed by Drs. Desean Benjamin, Jade Sanders, Blade Mccabe and colleagues, with an educational axel from [employer]. Review of Systems Const Denies chills, Denies fatigue, Denies fever(s) and Denies headache(s) (better controlled) Eyes Reports blurry vision ENT Denies dysphagia, Denies dizziness, Denies otalgia, Denies headache(s) (better controlled), Denies neck pain, Denies odynophagia and Denies sore throat Card Denies chest pain, Denies palpitations and Denies dyspnea Resp Denies chest congestion, Denies cough, Denies dyspnea and Denies wheezing GI Denies abdominal pain (but (+) on and off epigastric discomfort), Denies hematochezia, Denies constipation, Denies dysphagia, Denies heartburn, Denies diarrhea, Denies nausea, Denies odynophagia and Denies vomiting Denies dysuria, Denies nocturia and Denies urinary frequency Musc Denies back pain and Denies neck pain Skin/Breast Reports lesions (over the back of his left lower leg - see HPI) and Denies rash Neuro Denies dizziness and Denies headache(s) (better controlled) Endo Denies fatigue and Denies palpitations Aller/Immun Denies wheezing Physical exam (Primary Care) Vital Signs: Last Vital Signs Pulse 78 07/13/24 13:47 BP 110/82 07/13/24 13:47 Pulse Ox 99 07/13/24 13:47 Oxygen Delivery Method Room Air 07/13/24 13:47 BMI result Body Mass Index 24.3 Tobacco/Smoking Status: Tobacco use Status Tobacco use date assessed 07/13/24 07/13/24 13:55 Patient Tobacco Use Status Never used Tobacco 07/13/24 13:55 Tobacco use type 03/04/24 12:58 e-Cigarette/Vaping Use Never Used 07/13/24 13:55 PHQ-9: PHQ-9 Score PHQ-9: Total score 8 07/13/24 13:55 Depression Screening Interpretation: Positive Depression Screening Follow-up: Existing condition and In treatment Thrive Assessment: Date of Thrive Assessment Date Thrive assessed 07/13/24 07/13/24 13:55 Currently or been in a relationship where the following occur: No concerns reported Const General: no acute distress and alert HENMT Ears: TM's normal bilaterally and EAC's normal Throat: Yes posterior oropharynx normal and Yes tonsils normal (no TP congestion) Neck Neck: Yes no lymphadenopathy and Yes supple Thyroid: Thyroid normal Resp Auscultation: clear to auscultation bilaterally, no crackles, no rales and no wheezes Cardio Rate: regular rate Rhythm: regular rhythm Heart sounds: no murmurs GI Palpation (GI): Soft to palpation, Tenderness to palpation present (GI) (minimal, on deep palpation) in the epigastrum, no guarding, not rigid and No Rebound tenderness present Auscultation: normal bowel sounds General: Yes no CVA tenderness Back/Spine/Pelvis Back: no CVA tenderness Thoracic/Lumbar Spine: No lumbar spinal tenderness Skin Other: (+) small, raised, hyperpigmented cyst over the posterior aspect of the left lower leg Rashes: no rashes Extrem General: Yes no clubbing, cyanosis or edema Assessment and Plan Assessment & Plan (1) Asthma: Code(s): J45.909 - Unspecified asthma, uncomplicated Qualifiers: Asthma severity: mild Asthma persistence: intermittent Asthma complication type: uncomplicated Qualified Code(s): J45.20 - Mild intermittent asthma, uncomplicated Plan: Patient reports that his respiratory symptoms have improved a lot and he has not had any flare ups of his asthma recently - asthma appears much better controlled currently Continue Arnuity Ellipta 100 mcg 1 inhalation QD; continue Albuterol HFA 1 to 2 inhalations Q 6 hours PRN His PFTs done back in December 2023 showed findings consistent with asthma (2) Epidermoid cyst: Comment: over the posterior aspect of the left lower leg Code(s): L72.0 - Epidermal cyst Plan: He was previously referred to dermatology for further evaluation and surgical excision, if appropriate and we have advised that his referral is still active and will alert the referral team to update/follow up on this (3) Abdominal pain: Code(s): R10.9 - Unspecified abdominal pain Qualifiers: Abdominal location: epigastric Qualified Code(s): R10.13 - Epigastric pain Plan: Suspect that he has gastritis Reinforced dietary restrictions Continue Omeprazole 20 mg QD He was sent for an upper GI series for further evaluation back in May 2023 and was originally scheduled to have this done on 07/10/23 but patient claims that he was never notified about this so he did not show up then for his procedure The same thing happened again when he was scheduled on 05/03/2024 We have advised him to make sure that his current contact number is updated and will again reorder his upper GI series to be done [facility] for further evaluation of his GI symptoms (4) Migraine: Code(s): G43.909 - Migraine, unspecified, not intractable, without status migrainosus Qualifiers: Migraine type: unspecified Status migrainosus presence: without status migrainosus Intractability: not intractable Qualified Code(s): G43.909 - Migraine, unspecified, not intractable, without status migrainosus Plan: Reinforced again avoidance of triggers and potential triggers for his migraine headaches Continue Rizatriptan 10 mg PRN and Naproxen 500 mg BID PRN (to be taken with food) Follow up with [facility] as scheduled - Neurology is considering starting patient on prophylactic medications if his headaches persist or get worse (5) Vitamin D deficiency: Code(s): E55.9 - Vitamin D deficiency, unspecified Plan: Continue Vitamin D3 2000 units QD (6) Blurred vision, bilateral: Code(s): H53.8 - Other visual disturbances Plan: Per request, will refer him again to ophthalmology for further evaluation and management (7) Anxiety: Code(s): F41.9 - Anxiety disorder, unspecified Plan: Continue Hydroxyzine 25 mg BID PRN Follow up with psychiatry as scheduled (8) Bipolar depression: Code(s): F31.9 - Bipolar disorder, unspecified Plan: Continue Depakote 500 mg BID, Benztropine 0.5 mg BID, Olanzapine 2.5 mg QD and 15 mg Q HS and Prazosin 5 mg Q HS Follow up with psychiatry as scheduled Plan Follow up in 4 months Orders: Orders [place] upper GI w air w SBFT Today R10.13 - Epigastric pain, R63.4 - Abnormal weight loss Referrals Ophthalmology Referral H53.8 - Other visual disturbances Coding Level of Care Code Est Pt Level 4 (96852) Diagnoses Mild intermittent asthma without complication J45.20 Asthma severity: mild Asthma persistence: intermittent Asthma complication type: uncomplicated Epidermoid cyst L72.0 Epigastric pain R10.13 Abdominal location: epigastric Migraine without status migrainosus, not intractable, unspecified migraine type G43.909 Migraine type: unspecified Status migrainosus presence: without status migrainosus Intractability: not intractable Vitamin D deficiency E55.9 Blurred vision, bilateral H53.8 Anxiety F41.9 Bipolar depression F31.9
== END 2024-07-13 14:25 | disposition home or self-care (01) ==
PROVIDERS: PCP Internal Medicine; Visit Provider Internal Medicine
DX: J45.20 Mild intermittent asthma, uncomplicated (principal); L72.0 Epidermal cyst; R10.13 Epigastric pain; F31.9 Bipolar disorder, unspecified; G43.909 Migraine, unspecified, not intractable, without status migrainosus; E55.9 Vitamin D deficiency, unspecified; H53.8 Other visual disturbances; F41.9 Anxiety disorder, unspecified
CPT/HCPCS: 99214

== ENCOUNTER 2024-08-13 08:28 | Outpatient (REF) | payer OTHER, SELFPAY ==
--- NOTE | ~2024-08-13 | FL_ITS ---
EXAMINATION: FL UPPER GI SERIES WITH SMALL BOWEL CLINICAL INFORMATION: Abdominal pain. Weight loss. COMPARISON: None TECHNIQUE: Fluoroscopic air contrast upper GI examination was performed utilizing standard techniques with thin and thick barium and effervescent granules. Numerous spot images were obtained. FINDINGS: UPPER GI: Dual and single contrast images of the esophagus demonstrate a normal caliber and contour. There is a slight granular appearance of the mid esophageal mucosa, suggestive of esophagitis. No evidence of stricture, mass, or ulcerations identified. Esophageal peristalsis was normal. No evidence of hiatus hernia identified. Significant gastroesophageal reflux is seen up to the thoracic inlet. Dual contrast and single contrast images of the stomach demonstrated a normal contour. The gastric rugal folds have a thickened appearance, suggestive of gastritis. There are multiple tiny foci of contrast pooling in the fundus of the stomach that may represent small superficial mucosal erosions. No masses are seen. Contrast freely passed into the gastric antrum and duodenal bulb without delay. Single and air-contrast images of the duodenal bulb demonstrate no abnormality. The duodenal sweep has a normal appearance, course, and mucosal fold appearance. SMALL BOWEL FOLLOW-THROUGH: General Farmer image demonstrates a normal/nonspecific bowel gas pattern. No abnormal soft tissue calcifications. No organomegaly. Lung bases are clear. Osseous structures demonstrate a suggestion of periarticular sclerosis of both SI joints, not definitive but suspicious for sacroiliitis. Consider dedicated SI joint imaging. The imaged small bowel has a normal fold pattern and caliber. Terminal ileum is not well visualized. The imaged aspects of the terminal ileum appear normal. There is a rapid transit of the barium column with the right colon opacified in less than 30 minutes. This is nonspecific. FLUOROSCOPY TIME: 4 minutes 21 seconds DOSE AREA PRODUCT: 3585 uGy-m2 (microgray-meter squared) FL/FL upper GI w air w SBFT IMPRESSION: 1. Slight granular appearance of the mid esophageal mucosa, suggestive of esophagitis. 2. Severe gastroesophageal reflux. 3. Thickened appearance of the gastric rugal folds. In addition there are multiple tiny foci of contrast pooling in the fundus of the stomach. These findings are suggestive of erosive gastritis. Recommend correlation with EGD. 4. Rapid transit of the barium column, with the right colon opacified in less than 30 minutes. Etiology is unclear. 5. On the central sterile tech radiographs, sclerosis surrounding the SI joints is noted. Dedicated SI joint imaging could be considered with either dedicated plain films or a CT bony pelvis exam. This procedure was performed by Jamey Faye PA-C, and supervised by Dr. Leija Electronically signed by: Kyle Leija MD 08/18/2024 08:39 AM EDT
== END 2024-08-13 08:29 | disposition home or self-care (01) ==
LOC: HO.XRAY 08:28
PROVIDERS: PCP Internal Medicine; Visit Provider Internal Medicine
DX: R10.13 Epigastric pain (principal); R63.4 Abnormal weight loss
CPT/HCPCS: 74246; 74248

== ENCOUNTER → 2024-08-13 08:34 | Outpatient (BNV) | payer OTHER, SELFPAY | PROVIDERS: PCP Internal Medicine; Visit Provider Radiology Diagnostic Radiology | DX: R10.9 Unspecified abdominal pain (principal) | CPT/HCPCS: 74246 ==

== ENCOUNTER 2024-11-05 14:53 | Inpatient (IN) | payer OTHER, SELFPAY ==
--- NOTE | 2024-11-05 15:01 | ED.GENADULT ---
HPI - General Adult General Chief complaint: Psychiatric Symptoms Stated complaint: SI/HI PER EMS Time Seen by Provider: 11/05/24 15:00 Source: patient and EMS Mode of arrival: EMS Limitations: no limitations History of Present Illness ED Provider: Deborah Durant PA-C HPI narrative: Patient is a 29 year old assigned male at with a history of bipolar disorder, asthma, and migraines presenting to the emergency department today with SI and HI. Patient states that he is having a lot of life stressors lately, especially surrounding his home life, and he has suicidal and homicidal thoughts but no plans. Patient denies any dizziness, lightheadedness, abdominal pain, nausea, vomiting, fever, chills, blurry vision, double vision, loss of vision, chest pain, difficulty breathing, shortness of breath, back pain, night sweats, pain with urination, increased urinary frequency, increased urinary urgency, blood in his urine or stool, syncope or a near syncopal episode, recent trauma or falls, bowel incontinence, bladder incontinence, or any other complaints at this time. Relieving factors: none Exacerbating factors: none Associated symptoms: denies other symptoms Treatments prior to arrival: none Related Data Home Medications ?Medication ?Instructions ?Recorded ?Confirmed hydroxyzine HCl 25 mg tablet 25 mg PO BID PRN Anxiety 09/06/22 11/05/24 olanzapine 2.5 mg tablet (Zyprexa) 2.5 mg PO DAILY 09/06/22 11/05/24 benztropine 0.5 mg tablet 0.5 mg PO BID 08/14/23 11/05/24 Previous Rx's ?Medication ?Instructions ?Recorded divalproex 500 mg tablet,delayed 500 mg PO BID #14 tabs 08/17/23 release (Depakote) olanzapine 15 mg tablet 15 mg PO BEDTIME #7 tabs 08/17/23 prazosin 5 mg capsule 5 mg PO BEDTIME #7 caps 08/17/23 cholecalciferol (vitamin D3) 50 50 mcg PO DAILY #90 caps 10/12/24 mcg (2,000 unit) capsule omeprazole 20 mg capsule,delayed 20 mg PO DAILY 30 days #30 caps 10/13/24 release Allergies Allergy/AdvReac Type Severity Reaction Status Date / Time amphetamine [From Adderall] Allergy Severe Anaphylaxis Verified 11/05/24 15:08 dextroamphetamine Allergy Severe Anaphylaxis Verified 11/05/24 15:08 [From Adderall] seafood Allergy Severe Anaphylaxis Verified 11/05/24 15:08 chlorine bleach in water AdvReac Intermediate rash Uncoded 11/05/24 15:08 Review of Systems Constitutional: Constitutional: Reports no additional constitutional complaints, Denies chills, Denies fever(s) and Denies night sweats Eyes: Eyes: Reports no additional eye complaints, Denies blurry vision, Denies change in vision, Denies diplopia, Denies eye discharge, Denies loss of vision and Denies eye pain ENT: Denies dizziness Cardiovascular: Cardiovascular: Reports no additional cardiovascular complaints, Denies chest pain, Denies lightheadedness, Denies Loss of Consciousness and Denies dyspnea Respiratory: Respiratory: Reports no additional respiratory complaints and Denies dyspnea Gastrointestinal: Gastrointestinal: Reports no additional gastrointestinal complaints, Denies abdominal pain, Denies melena, Denies hematochezia, Denies change in bowel habits and Denies change in stool character Genitourinary: Genitourinary: Reports no additional male genitourinary complaints, Denies hematuria, Denies oliguria, Denies difficulty urinating, Denies dysuria, Denies urinary frequency, Denies urinary hesitancy, Denies urinary incontinence and Denies urinary urgency Musculoskeletal: Musculoskeletal: Reports no additional musculoskeletal complaints, Denies numbness and Denies tingling Neurologic: Denies dizziness, Denies loss of vision, Denies numbness and Denies tingling Psychiatric: Psychiatric: Reports no additional psychiatric complaints, Reports homicidal ideation and Reports suicidal ideation Endocrine: Endocrine: Reports no additional endocrine complaints Hematologic/Lymphatic: Hematologic/Lymphatic: Reports no additional hematologic/lymphatic complaints Allergic/Immunologic: Allergic/Immunologic: Reports no additional allergic/immunologic complaints [facility] Past Medical History Attestation statement: The following information was validated with the patient. Source: old records reviewed and nursing notes reviewed Medical History Sickle cell trait Overweight (BMI 25.0-29.9) Vitamin D deficiency Allergic rhinitis Anxiety Bipolar depression Asthma Surgical History History of ankle surgery (~05/09/19) Family History Family History Mother Mental health disorder Social History Social History Housing: Apartment Alcohol intake: current Patient Tobacco Use Status: Never used Tobacco Smoked in Last 30 Days: No e-Cigarette/Vaping Use: Never Used Second Hand Smoke Exposure: No Use of substances other than those prescribed or required for medical reasons: No Substance Use Type: Marijuana Advance Directives: No Advance Directives Information Provided: No Do you have a plan to hurt others: No Plan service: No Current occupational status: unemployed and disabled Cognitive needs: No Hearing needs: No Vision needs: No Physical Exam ED Vital Signs: Vital Signs - 24 hr 11/05/24 15:06 11/05/24 15:37 Temperature 98.4 F Pulse Rate 73 Respiratory Rate 18 18 Blood Pressure 135/64 Pulse Oximetry 99 Oxygen Delivery Method Room Air BMI result Body Mass Index 23.6 Const General: cooperative, no acute distress, alert and awake Nutritional Appearance: well nourished Orientation/consciousness: patient oriented x3 Limitations: no limitations HENMT Head: Yes normal to inspection and Yes atraumatic Ears: hearing grossly normal bilaterally and external ears normal General nose exam: Normal external nose present, no nasal discharge noted and no epistaxis Face and sinus: Yes normal facial exam, No abrasion and No laceration Mouth: Normal oral and palatal mucosa present, no drooling and no muffled voice Eyes General: appearance normal, both eyes and all related structures Periorbital: periorbital findings normal Eyelids: Yes eyelids normal Conjunctivae: conjunctivae normal Pupils: Equal, round and reactive pupils present EOM: EOMs intact bilaterally Neck Neck: Yes normal visual inspection, Yes full ROM and Yes no lymphadenopathy Chest Chest palpation & inspection: normal inspection of the chest Resp Effort & Inspection: normal respiratory effort and able to speak in complete sentences GI Inspection: Yes normal to inspection Neuro General: patient oriented x3 and moves all extremities Cranial nerves: Yes Equal, round and reactive pupils present Cognition (Neuro): normal cognition Extrem General: Yes normal to inspection, Yes full ROM and Yes capillary refill normal Psych Appearance: grossly normal Mental Status: mental status grossly normal Affect: normal affect Attitude: Guarded attititude/behavior present Thought content: Suicidality present and Homicidality present Medical Decision Making Medical Decision Making MDM Narrative: Patient is a 29 year old assigned male at with a history of bipolar disorder, asthma, and migraines presenting to the emergency department today with SI and HI. Patient's physical exam was as noted in the physical exam portion of this note. Patient's blood work was unremarkable. I explained my physical exam findings as well as all test results to the patient. I answered all questions asked by the patient. Patient's disposition is pending CARE team evaluation. Differential Diagnosis Differential Diagnoses: The differential diagnosis associated with the presentation includes SI HI Admission/Observation Consideration of admission/observation: Escalation of care including admission/observation considered Patient's disposition will be determined after CARE team evaluation. Lab Data [facility] Lab Attestation statement: I reviewed the patient's lab results. My interpretation of these results are in the MDM Rationale portion of this note. 11/05/24 15:21 11/05/24 15:21 Labs: Lab Results 11/05/24 Range/Units 15:21 WBC 3.8 L (4.8-10.8) X10*3/uL RBC 4.62 (4.60-5.80) X10*6/uL Hgb 14.2 (14.0-18.0) g/dl Hct 40.6 L (42.0-52.0) % MCV 87.9 (80.0-98.0) fL MCH 30.7 (27.0-33.0) pg MCHC 35.0 (31.0-36.0) g/dl RDW 12.4 (11.0-16.0) % Plt Count 231 (160-400) X10*3/uL MPV 9.9 (9.4-12.4) fL Immature Gran % (Auto) 0.3 (0.0-0.4) % Neut % (Auto) 49.1 (45-73) % Lymph % (Auto) 41.5 H (20-40) % [place] % (Auto) 8.1 (2-11) % Eos % (Auto) 0.5 (0-4) % Baso % (Auto) 0.5 (0-2) % Lymph # (Auto) 1.6 (1.2-4.9) X10*3/uL [place] # (Auto) 0.3 (0.1-1.2) X10*3/uL Eos # (Auto) 0.0 (0.0-0.4) X10*3/uL Baso # (Auto) 0.0 (0.0-0.2) X10*3/uL Abs Immat Gran (auto) 0.01 (0.00-0.03) X10*3/uL Absolute Neuts (auto) 1.9 L (2.0-8.3) x10*3/uL Absolute Nucleated RBC 0.000 (0.0-0.012) X10*3/uL Nucleated RBC % (auto) 0.0 (0.0-0.2) /100WBC Sodium 142 (135-145) mmol/L Potassium 3.9 (3.3-5.1) mmol/L Chloride 107 (96-108) mmol/L Carbon Dioxide 29 (22-29) mmol/L Anion Gap 10 L (12-20) BUN 14 (9-16) mg/dL Creatinine 0.87 (0.5-1.4) mg/dL Estim Creat Clear Calc 125.2 Estimated GFR > 60 Random Glucose 89 (60-115) mg/dL Calcium 9.4 (8.4-10.2) mg/dL Total Bilirubin 0.5 (0.0-1.0) mg/dL AST 20 (5-37) U/L ALT 12 (0-40) U/L Total Protein 7.8 (6.5-8.0) g/dL Albumin 4.5 (3.5-5.0) g/dL Urine Color Yellow Urine Appearance Clear Urine pH 5.5 (5.0-9.0) Ur Specific [place] 1.015 (1.005-1.025) Urine Protein Negative (Neg-Trace) mg/dL Urine Glucose (UA) Negative (Negative) mg/dL Urine Ketones Negative (Negative) mg/dL Urine Blood Negative (Negative) Urine Nitrite Negative (Negative) Ur Leukocyte Esterase Negative (Negative) Urine Opiates Screen Not Detected (Not Detect) Ur Buprenorphine Scrn Not Detected (Not Detect) ng/mL Ur Oxycodone Screen Not Detected (Not Detect) ng/mL Urine Methadone Screen Not Detected (Not Detect) ng/mL Urine Fentanyl Screen Not Detected (Not Detect) Ur Barbiturates Screen Not Detected (Not Detect) Ur Phencyclidine Scrn Not Detected (Not Detect) Ur Amphetamines Screen Not Detected (Not Detect) U Benzodiazepines Scrn Not Detected (Not Detect) Urine Cocaine Screen Not Detected (Not Detect) U Marijuana (THC) Screen Not Detected (Not Detect) Ethyl Alcohol < 10 mg/dL Independent Historian Clinical information obtained from an independent historian. History obtained from or confirmed by: EMS (EMS provided additional history and confirmed the history provided by the patient.) Discharge Plan Discharge Clinical Impression: Suicidal ideation, Homicidal ideation Patient Disposition: Still a Patient Prescriptions: No Action cholecalciferol (vitamin D3) 50 mcg (2,000 unit) capsule 50 mcg PO DAILY Qty: 90 7RF omeprazole 20 mg capsule,delayed release(DR/EC) 20 mg PO DAILY 30 Days Qty: 30 0RF benztropine 0.5 mg tablet 0.5 mg PO BID prazosin 5 mg capsule 5 mg PO BEDTIME Qty: 7 0RF divalproex [Depakote] 500 mg tablet,delayed release (DR/EC) 500 mg PO BID Qty: 14 0RF olanzapine 15 mg tablet 15 mg PO BEDTIME Qty: 7 0RF olanzapine [Zyprexa] 2.5 mg tablet 2.5 mg PO DAILY hydroxyzine HCl 25 mg tablet 25 mg PO BID PRN (Reason: Anxiety) Interventions: [place]-Suicide Risk Severity Scale Last Done: 11/05/24 15:37 Print Language: [place]
[2024-11-05 15:06] VITALS: BP 135/64; PULSE 73; RESP 18; TEMP 36.9; O2SAT 99; BMI 23.6
[2024-11-05 15:29] LABS: MANUAL DIFF FLAG NO
[2024-11-05 15:31] LABS: Basophils Percent Auto 0.5 % (0-2); Eosinophils Percent Auto 0.5 % (0-4); Hematocrit 40.6 % (42.0-52.0); Hemoglobin 14.2 g/dl (14.0-18.0); Imm Gran Abs Auto 0.01 X10*3/uL (0.00-0.03); Imm Gran Pct Auto 0.3 % (0.0-0.4); Lymphocytes Absolute Auto 1.6 X10*3/uL (1.2-4.9); Lymphocytes Percent Auto 41.5 % (20-40); Mean Corpuscular Hemoglobin 30.7 pg (27.0-33.0); Mean Corpuscular Volume 87.9 fL (80.0-98.0); Mean Platelet Volume 9.9 fL (9.4-12.4); Monocytes Absolute Auto 0.3 X10*3/uL (0.1-1.2); Monocytes Percent Auto 8.1 % (2-11); Neutrophils Absolute Auto 1.9 x10*3/uL (2.0-8.3); Neutrophils Percent Auto 49.1 % (45-73); Platelet Count 231 X10*3/uL (160-400); Red Blood Count 4.62 X10*6/uL (4.60-5.80); Red Cell Distribution Width 12.4 % (11.0-16.0); White Blood Count 3.8 X10*3/uL (4.8-10.8)
[2024-11-05 15:32] LABS: Appearance Urine Clear; Color Urine Yellow; Glucose Urine UA Negative (Negative); Leukocyte Esterase Urine Negative (Negative); Nitrite Urine Negative (Negative); PH 5.5 (5.0-9.0); Specific Gravity - Urine 1.015 (1.005-1.025); Urine Blood Negative (Negative); Urine Ketones Negative (Negative); Urine Protein Negative (Neg-Trace)
[2024-11-05 15:37] VITALS: RESP 18
[2024-11-05 15:56] LABS: Amphetamine Screen Urine Not Detected (Not Detect); Barbiturates, Urine Not Detected (Not Detect); Benzodiazepines Screen Urine Not Detected (Not Detect); Buprenorphine Scr Not Detected (Not Detect); Cannabinoid Screen Urine Not Detected (Not Detect); Cocaine Screen Urine Not Detected (Not Detect); Fentanyl, urine Not Detected (Not Detect); Methadone Screen, Urine Not Detected (Not Detect); Opiate Screen Urine Not Detected (Not Detect); Oxycodone Screen Urine Not Detected (Not Detect); Phencyclidine Screen Urine Not Detected (Not Detect)
[2024-11-05 16:01] LABS: Alanine Aminotransferase 12 U/L (0-40); Albumin Level 4.5 g/dL (3.5-5.0); Anion Gap 10 (12-20); Aspartate Amino Transferase 20 U/L (5-37); Bilirubin Total 0.5 mg/dL (0.0-1.0); Blood Urea Nitrogen 14 mg/dL (9-16); Calcium 9.4 mg/dL (8.4-10.2); Carbon Dioxide 29 mmol/L (22-29); Chloride 107 mmol/L (96-108); Creatinine Clr Calc Pharmacy 125.2; Estimated Glomerular Filt Rate > 60; Ethanol < 10 mg/dL; Glucose Random 89 mg/dL (60-115); Potassium 3.9 mmol/L (3.3-5.1); Sodium 142 mmol/L (135-145); Total Protein 7.8 g/dL (6.5-8.0)
[2024-11-05 16:45] LABS: Alkaline Phosphatase 62 U/L (39-117)
[2024-11-05 17:13] LABS: Valproate 57.4 mcg/mL (50.0-100.0)
--- NOTE | 2024-11-05 21:51 | PHA.MEDREC ---
Pharmacy Consult ? Medication Reconciliation Pharmacy has reviewed the medication reconciliation completed by nursing.
[2024-11-05 22:00] VITALS: BP 133/82; PULSE 62; RESP 15; TEMP 36.9; O2SAT 99
[2024-11-05] MEDS: hydrOXYzine HCL 25 MG TABLET PO (23:09)
[2024-11-05] MEDS: traZODone HCL 50 MG TABLET PO (23:09)
[2024-11-06 01:57] VITALS: BMI 25.1
--- NOTE | 2024-11-06 05:26 | PC.ADMIT ---
Patient is a 29 year old male, who was admitted to to [place] [facility] with a CV status. Pt arrived to on 11/05/24 at 21:55. Pt was presented to the emergency department today with SI and HI with no specific plans. According to [facility] Crisis, he self-presented along with [facility], counselor due to concerns of increased symptoms related to his PTSD, depression, emotional dysregulation, HI towards no particular person, SI with no plan. Pt reported increased stressors related to his living environment which he feels is unsafe due to recent increase in crime in the area. He also reported ongoing interpersonal struggles with his fiance who lives in [facility] and she is homeless. Pt was calm and cooperative during admission process. He signed all admission papers. He reported depression and anxiety levels as 8/10, but denied current SI/HI. He took some PRNs for sleep and went to bed.
[2024-11-06] MEDS: Divalproex Sodium 500 MG TABLET.DR PO ×2 (08:15→22:27)
[2024-11-06] MEDS: Benztropine Mesylate 0.5 MG TABLET PO ×2 (08:15→22:27)
[2024-11-06] MEDS: Cholecalciferol (Vitamin D3) 25 MCG TABLET 50 MCG PO (08:16)
[2024-11-06] MEDS: Omeprazole 20 MG CAPSULE.DR PO (08:20)
[2024-11-06 08:25] VITALS: BP 123/76; PULSE 67; RESP 18; TEMP 36.8; O2SAT 96
--- NOTE | 2024-11-06 09:53 | P.HPPS_ITS ---
HPI Date of Service: 11/06/24 Chief Complaint: HI Sources of Information: patient interviewed, chart reviewed and crisis/core team assessment reviewed HPI Subjective Notes: Conditional Voluntary Narrative: As per ED Note 11/05/24: 29 year old assigned male at with a history of bipolar disorder, asthma, and migraines presenting to the emergency department today with SI and HI. Patient states that he is having a lot of life stressors lately, especially surrounding his home life, and he has suicidal and homicidal thoughts but no plans Today: Patient reports wanting to get help with his depression and suicidal and homicidal thoughts. Reports if he continues living this way he may end up killing himself. No clear pervasive depressive symptoms. No overt psychosis. Clearly wants to live and have things improved, but significant psychosocial stressors. No substance issues. Utilizes marijuana for pain. Describes lots of loss recently regarding stepbrother, cousins that have through violence or overdose or medical illness. Reports main stressors or psychosocial in nature and primarily not feeling safe or he currently lives on [address] in [place]. Worries about being attacked in the context of gang activity, gun shootings etc. Which is based in reality rather than delusional. Reports he does not want to hurt anybody, but that if somebody threatened him or his family and then he would. Reports wanting to have his children live with him and that that community is not somewhere he could do that. Has 4 children ages 9 through 15 who are in custody of family either in state or out of state. Reports a stable relationship with his fiancee of 10 years do lists who lives in [facility]. Reports they want to have their own children together eventually. Has been adherent with medications and prescribed through [facility] [place]. On Depakote for bipolar disorder and a seizure disorder,Also olanzapine, prazosin and trazodone. Reports he has been consistent with medications. Lab work in the ED is consistent with same, however Depakote level was in the afternoon and will need a repeat in the morning. Patient is open to med changes but also eager for none medications supports and meeting with primary treatment team and social media developer. Past Psychiatric History: Reports diagnosis of bipolar disorder , PTSD anxiety and depression. Reports auditory hallucinations when younger but none in many years. On Depakote, olanzapine and trazodone. Prescribed through [facility] [place] [place]. 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 Unsure of medication history. Reports multiple inpatient stays the last was at [facility] in June. History of 2 suicide attempts by overdose in 2015 and 2018. Also reports a history of cutting but none in many years. Medical Evaluation Reviewed: Yes [facility] Medical History Sickle cell trait Overweight (BMI 25.0-29.9) Vitamin D deficiency Allergic rhinitis Anxiety Bipolar depression Asthma Surgical History History of ankle surgery (~05/09/19) Social History: section 8 housing voucher. reports not feeling safe in this area and describes it as being very dangerous and volatile. Fiance of 10 years based in [facility]. Four children ages 9 through 15 in the custody of family either in state or out of state. No active legal issues. Last was in 2021. Diagnostics Vital Signs (24Hr): Vital Signs - 24 hr 11/05/24 15:06 11/05/24 15:37 11/05/24 22:00 Temperature 98.4 F 98.4 F Pulse Rate 73 62 Respiratory Rate 18 18 15 Blood Pressure 135/64 133/82 Pulse Oximetry 99 99 Oxygen Delivery Method Room Air 11/06/24 08:25 Temperature 98.3 F Pulse Rate 67 Respiratory Rate 18 Blood Pressure 123/76 Pulse Oximetry 96 Oxygen Delivery Method Room Air BMI result Body Mass Index 25.1 Labs 11/05/24 15:21 11/05/24 15:21 Labs: Laboratory Results - last 48 hr 11/05/24 15:21 WBC 3.8 L RBC 4.62 Hgb 14.2 Hct 40.6 L MCV 87.9 MCH 30.7 MCHC 35.0 RDW 12.4 Plt Count 231 MPV 9.9 Immature Gran % (Auto) 0.3 Neut % (Auto) 49.1 Lymph % (Auto) 41.5 H [place] % (Auto) 8.1 Eos % (Auto) 0.5 Baso % (Auto) 0.5 Lymph # (Auto) 1.6 [place] # (Auto) 0.3 Eos # (Auto) 0.0 Baso # (Auto) 0.0 Abs Immat Gran (auto) 0.01 Absolute Neuts (auto) 1.9 L Absolute Nucleated RBC 0.000 Nucleated RBC % (auto) 0.0 Sodium 142 Potassium 3.9 Chloride 107 Carbon Dioxide 29 Anion Gap 10 L BUN 14 Creatinine 0.87 Estim Creat Clear Calc 125.2 Estimated GFR > 60 Random Glucose 89 Calcium 9.4 Total Bilirubin 0.5 AST 20 ALT 12 Alkaline Phosphatase 62 Total Protein 7.8 Albumin 4.5 Urine Color Yellow Urine Appearance Clear Urine pH 5.5 Ur Specific [place] 1.015 Urine Protein Negative Urine Glucose (UA) Negative Urine Ketones Negative Urine Blood Negative Urine Nitrite Negative Ur Leukocyte Esterase Negative Urine Opiates Screen Not Detected Ur Buprenorphine Scrn Not Detected Ur Oxycodone Screen Not Detected Urine Methadone Screen Not Detected Urine Fentanyl Screen Not Detected Ur Barbiturates Screen Not Detected Valproic Acid 57.4 Ur Phencyclidine Scrn Not Detected Ur Amphetamines Screen Not Detected U Benzodiazepines Scrn Not Detected Urine Cocaine Screen Not Detected U Marijuana (THC) Screen Not Detected Ethyl Alcohol < 10 Meds/Allergies Meds Home Medications ?Medication ?Instructions ?Recorded ?Confirmed ?Type hydroxyzine HCl 25 mg tablet 25 mg PO BID PRN Anxiety 09/06/22 11/05/24 History olanzapine 2.5 mg tablet (Zyprexa) 2.5 mg PO BID PRN Anxiety or 09/06/22 11/05/24 History Agitation benztropine 0.5 mg tablet 0.5 mg PO BID 08/14/23 11/05/24 History Allergies Allergies Allergy/AdvReac Type Severity Reaction Status Date / Time amphetamine [From Adderall] Allergy Severe Anaphylaxis Verified 11/05/24 15:08 dextroamphetamine Allergy Severe Anaphylaxis Verified 11/05/24 15:08 [From Adderall] seafood Allergy Severe Anaphylaxis Verified 11/05/24 15:08 chlorine bleach in water AdvReac Intermediate rash Uncoded 11/05/24 15:08 Mental Status Exam Mental Status Exam Narrative: pleasant. Engaged. Fair self-care. Organized. Clear distress and frustration when describing psychosocial stressors. Describes SI if having to return to current living environment. Describes HI if threatened by community members regarding his family. No overt psychosis. Insight and judgment fair Assessment & Plan Assessment & Plan (1) Bipolar depression: Status: Acute Code(s): F31.9 - Bipolar disorder, unspecified (2) PTSD (post-traumatic stress disorder): Status: Acute Code(s): F43.10 - Post-traumatic stress disorder, unspecified Plan Presents with history of bipolar disorder and PTSD and significant psychosocial stressors and with that context based suicidal and homicidal thoughts. Will check Depakote level in the morning plus or minus adjust dosing. Otherwise no med changes. Time to settle in milieu, engage in groups. Patient educated on: diagnosis, medication risk/benefits and therapeutic strategies Informed Consent: understands Reason for continued inpatient stay Substantial Risk for: harm to self and harm to others Statement Statement: I have reviewed the history and physical and performed a pertinent examination on my patient. No changes have occurred unless specified. If the History and Physical was not performed prior to admission, the Hospitalist's service will be consulted for completing the admission physical. Time Spent With Patient Time: Total time managing care of this patient today ____ minutes.
[2024-11-06 20:00] VITALS: BP 152/70; PULSE 62; RESP 15; TEMP 37.4; O2SAT 98
[2024-11-06] MEDS: traZODone HCL 50 MG TABLET PO (22:26)
[2024-11-06] MEDS: OLANZapine 7.5 MG TABLET 15 MG PO (22:26)
[2024-11-06] MEDS: Prazosin HCL 5 MG CAPSULE PO (22:26)
--- NOTE | 2024-11-07 08:36 | P.PNPSI_ITS ---
Subjective Subjective Date of Service: 11/07/24 Reason For Visit: HI Interim History: met with patient. Discussed with Nursing. Overall no management issues. Can be quite intense at times during interactions. Depakote level 66. Today reported having no issues. Spending most of his time in his room. No overt paranoia. Sleep has been okay. Remains hopeful for support in the community setting. Agreed to have Depakote dose increased given level of 66 Medication Compliance: Yes Side effects from medications: No Attending Groups: Intermittent Review of Systems Acute medical concerns: No Review of Systems Review of Systems Unremarkable Mental Status Exam Mental Status Exam Narrative: pleasant. Engaged. Fair self-care. Organized. calmer today. No overt psychosis. Still ongoing SI and HI in the context of psychosocial stressors. No overt psychosis. Insight and judgment fair Diagnostics Vital Signs (24Hr): Vital Signs - 24 hr 11/06/24 20:00 Temperature 99.3 F Pulse Rate 62 Respiratory Rate 15 Blood Pressure 152/70 H Pulse Oximetry 98 BMI result Body Mass Index 25.1 Labs 11/05/24 15:21 11/05/24 15:21 Labs: Laboratory Results - last 48 hr 11/05/24 11/06/24 15:21 06:00 WBC 3.8 L RBC 4.62 Hgb 14.2 Hct 40.6 L MCV 87.9 MCH 30.7 MCHC 35.0 RDW 12.4 Plt Count 231 MPV 9.9 Immature Gran % (Auto) 0.3 Neut % (Auto) 49.1 Lymph % (Auto) 41.5 H [place] % (Auto) 8.1 Eos % (Auto) 0.5 Baso % (Auto) 0.5 Lymph # (Auto) 1.6 [place] # (Auto) 0.3 Eos # (Auto) 0.0 Baso # (Auto) 0.0 Abs Immat Gran (auto) 0.01 Absolute Neuts (auto) 1.9 L Absolute Nucleated RBC 0.000 Nucleated RBC % (auto) 0.0 Sodium 142 Cancelled Potassium 3.9 Cancelled Chloride 107 Cancelled Carbon Dioxide 29 Cancelled Anion Gap 10 L Cancelled BUN 14 Cancelled Creatinine 0.87 Cancelled Estim Creat Clear Calc 125.2 Cancelled Estimated GFR > 60 Cancelled Random Glucose 89 Cancelled Calcium 9.4 Cancelled Total Bilirubin 0.5 Cancelled AST 20 Cancelled ALT 12 Cancelled Alkaline Phosphatase 62 Cancelled Total Protein 7.8 Cancelled Albumin 4.5 Cancelled Triglycerides Cancelled Cholesterol Cancelled LDL Cholesterol, Calc Cancelled HDL Cholesterol Cancelled TSH Cancelled Urine Color Yellow Urine Appearance Clear Urine pH 5.5 Ur Specific [place] 1.015 Urine Protein Negative Urine Glucose (UA) Negative Urine Ketones Negative Urine Blood Negative Urine Nitrite Negative Ur Leukocyte Esterase Negative Urine Opiates Screen Not Detected Ur Buprenorphine Scrn Not Detected Ur Oxycodone Screen Not Detected Urine Methadone Screen Not Detected Urine Fentanyl Screen Not Detected Ur Barbiturates Screen Not Detected Valproic Acid 57.4 Ur Phencyclidine Scrn Not Detected Ur Amphetamines Screen Not Detected U Benzodiazepines Scrn Not Detected Urine Cocaine Screen Not Detected U Marijuana (THC) Screen Not Detected Ethyl Alcohol < 10 Medications Medications Current Medications Acetaminophen (Acetaminophen 325 Mg Tablet) 650 mg PO Q6H PRN PRN Reason: Headache/Pain Mild Scale (1-3) Al Hydroxide/Mg Hydroxide (Magnesium Hydrox/Alum Hydrox 30 Ml Oral.Susp) 30 ml PO Q6H PRN PRN Reason: Heartburn/Nausea Benztropine Mesylate (Benztropine Mesylate 0.5 Mg Tablet) 0.5 mg PO BID [facility] Last Admin: 11/06/24 22:27 Dose: 0.5 mg Divalproex Sodium (Divalproex Sodium 500 Mg Tablet.) 500 mg PO BID [facility] Last Admin: 11/06/24 22:27 Dose: 500 mg Hydroxyzine HCl (Hydroxyzine Hcl 25 Mg Tablet) 25 mg PO Q6H PRN PRN Reason: Anxiety Last Admin: 11/05/24 23:09 Dose: 25 mg Hydroxyzine HCl (Hydroxyzine Hcl 25 Mg Tablet) 25 mg PO BID PRN PRN Reason: Anxiety Magnesium Hydroxide (Milk Of Magnesia 30 Ml Oral.Susp) 30 ml PO DAILY PRN PRN Reason: Constipation Olanzapine (Olanzapine 7.5 Mg Tablet) 15 mg PO BEDTIME [facility] Last Admin: 11/06/24 22:26 Dose: 15 mg Olanzapine (Olanzapine 2.5 Mg Tablet) 2.5 mg PO BID PRN PRN Reason: Anxiety or Agitation Omeprazole (Omeprazole 20 Mg Capsule.) 20 mg PO DAILY@0630 [facility] Last Admin: 11/06/24 08:20 Dose: 20 mg Prazosin HCl (Prazosin Hcl 5 Mg Capsule) 5 mg PO BEDTIME [facility]; Protocol Last Admin: 11/06/24 22:26 Dose: 5 mg Trazodone HCl (Trazodone Hcl 50 Mg Tablet) 50 mg PO BEDTIME MRX1 PRN PRN Reason: Insomnia Last Admin: 11/06/24 22:26 Dose: 50 mg Vitamin D (Cholecalciferol (Vitamin D3) 25 Mcg Tablet) 50 mcg PO DAILY [facility] Last Admin: 11/06/24 08:16 Dose: 50 mcg Allergies Allergies Allergy/AdvReac Type Severity Reaction Status Date / Time amphetamine [From Adderall] Allergy Severe Anaphylaxis Verified 11/05/24 15:08 dextroamphetamine Allergy Severe Anaphylaxis Verified 11/05/24 15:08 [From Adderall] seafood Allergy Severe Anaphylaxis Verified 11/05/24 15:08 chlorine bleach in water AdvReac Intermediate rash Uncoded 11/05/24 15:08 Assessment & Plan Assessment & Plan (1) Bipolar depression: Status: Acute Code(s): F31.9 - Bipolar disorder, unspecified (2) PTSD (post-traumatic stress disorder): Status: Acute Code(s): F43.10 - Post-traumatic stress disorder, unspecified Plan Presents with history of bipolar disorder and PTSD and significant psychosocial stressors and with that context based suicidal and homicidal thoughts. Will check Depakote level in the morning plus or minus adjust dosing. Otherwise no med changes. Time to settle in milieu, engage in groups. 11/07/2024: Depakote level 66. Will increase dose from 500 mg twice daily to 750 mg twice daily Reason for continued inpatient stay Substantial Risk for: harm to self and harm to others Time Spent With Patient Time: Total time managing care of this patient today ____ minutes.
[2024-11-07] MEDS: Cholecalciferol (Vitamin D3) 25 MCG TABLET 50 MCG PO (09:31)
[2024-11-07] MEDS: Divalproex Sodium 500 MG TABLET.DR PO (09:31)
[2024-11-07] MEDS: Omeprazole 20 MG CAPSULE.DR PO (09:31)
[2024-11-07] MEDS: Benztropine Mesylate 0.5 MG TABLET PO ×2 (09:31→22:02)
[2024-11-07 09:35] VITALS: BP 142/86; PULSE 108; RESP 16; TEMP 36.9; O2SAT 96
[2024-11-07 09:48] LABS: Valproate 66.2 mcg/mL (50.0-100.0)
[2024-11-07 09:50] LABS: Estimated Average Glucose 103 mg/dL; Hemoglobin A1C 118.7212 umol/L; Hemoglobin A1c % 5.2 % (<6.0); Total Hemoglobin (HGBA1C) 3575.6203 umol/L
[2024-11-07 19:49] VITALS: BP 142/75; PULSE 70; TEMP 37.2; O2SAT 98
[2024-11-07] MEDS: Divalproex Sodium 250 MG TABLET.DR 750 MG PO (22:02)
[2024-11-07 22:03] VITALS: BP 138/72
[2024-11-07] MEDS: OLANZapine 7.5 MG TABLET 15 MG PO (22:03)
[2024-11-07] MEDS: Prazosin HCL 5 MG CAPSULE PO (22:03)
[2024-11-07] MEDS: hydrOXYzine HCL 25 MG TABLET PO (22:03)
[2024-11-08 08:00] VITALS: BP 123/58; PULSE 84; RESP 18; TEMP 37.2; O2SAT 93
[2024-11-08] MEDS: Omeprazole 20 MG CAPSULE.DR PO (08:47)
[2024-11-08] MEDS: Cholecalciferol (Vitamin D3) 25 MCG TABLET 50 MCG PO (08:47)
[2024-11-08] MEDS: Benztropine Mesylate 0.5 MG TABLET PO ×2 (08:48→21:07)
[2024-11-08] MEDS: Divalproex Sodium 250 MG TABLET.DR 750 MG PO ×2 (08:48→21:07)
--- NOTE | 2024-11-08 13:57 | P.PNPSI_ITS ---
Subjective Subjective Date of Service: 11/08/24 Reason For Visit: HI Subjective Notes: Conditional Voluntary Interim History: Patient reports feeling anxious and depressed today; pt stated, I'm anxious because of how loud the unit is but I'm depressed because of my housing situation and family deaths. I don't feel safe in my neighborhood . Patient reports homicidal ideation towards his father and ex-partners of my fiance because I had to fern picker the pieces of her . Pt reports he does not have a plan and wouldn't do anything because I know the consequences would be I would go to correction. 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 denies SI/VH/AH. Medication Compliance: Yes Side effects from medications: No Review of Systems Constitutional: Reports as per HPI Eyes: Reports as per HPI Reports as per HPI Cardiovascular: Reports as per HPI Respiratory: Reports as per HPI Gastrointestinal: Reports as per HPI Genitourinary: Reports as per HPI Musculoskeletal: Reports as per HPI Skin/Breast: Reports as per HPI Reports as per HPI Psychiatric: Reports as per HPI Endocrine: Reports as per HPI Hematologic/Lymphatic: Reports as per HPI Allergic/Immunologic: Reports as per HPI Mental Status Exam Mental Status Exam Patient Appearance: Well Grooomed Patient Orientation: Person, Place, Time and Situation Level of Consciousness: Awake and Alert Patient Behavior: Appropriate and Cooperative Mood Description: Depressed and Anxious Affect Description: Blunted Ability to Follow Directions: Good Speech Pattern: Clear and Appropriate Memory Description: Intact Hallucinations: None Thought Process: Intact and Goal Oriented Thought Content: positive for Intact Judgement: Poor Diagnostics Vital Signs (24Hr): Vital Signs - 24 hr 11/07/24 19:49 11/07/24 22:03 11/08/24 08:00 Temperature 98.9 F 98.9 F Pulse Rate 70 84 Respiratory Rate 18 Blood Pressure 142/75 H 138/72 123/58 L Pulse Oximetry 98 93 Oxygen Delivery Method Room Air Room Air BMI result Body Mass Index 25.1 Labs 11/05/24 15:21 11/05/24 15:21 Labs: Laboratory Results - last 48 hr 11/06/24 11/07/24 06:00 09:29 Sodium Cancelled Potassium Cancelled Chloride Cancelled Carbon Dioxide Cancelled Anion Gap Cancelled BUN Cancelled Creatinine Cancelled Estim Creat Clear Calc Cancelled Estimated GFR Cancelled Random Glucose Cancelled Estimat Average Glucose 103 Hemoglobin A1c % 5.2 Calcium Cancelled Total Bilirubin Cancelled AST Cancelled ALT Cancelled Alkaline Phosphatase Cancelled Total Protein Cancelled Albumin Cancelled Triglycerides Cancelled Cholesterol Cancelled LDL Cholesterol, Calc Cancelled HDL Cholesterol Cancelled TSH Cancelled Valproic Acid 66.2 Medications Medications Current Medications Acetaminophen (Acetaminophen 325 Mg Tablet) 650 mg PO Q6H PRN PRN Reason: Headache/Pain Mild Scale (1-3) Al Hydroxide/Mg Hydroxide (Magnesium Hydrox/Alum Hydrox 30 Ml Oral.Susp) 30 ml PO Q6H PRN PRN Reason: Heartburn/Nausea Benztropine Mesylate (Benztropine Mesylate 0.5 Mg Tablet) 0.5 mg PO BID [facility] Last Admin: 11/08/24 08:48 Dose: 0.5 mg Divalproex Sodium (Divalproex Sodium 250 Mg Tablet.) 750 mg PO BID [facility] Last Admin: 11/08/24 08:48 Dose: 750 mg Hydroxyzine HCl (Hydroxyzine Hcl 25 Mg Tablet) 25 mg PO Q6H PRN PRN Reason: Anxiety Last Admin: 11/07/24 22:03 Dose: 25 mg Hydroxyzine HCl (Hydroxyzine Hcl 25 Mg Tablet) 25 mg PO BID PRN PRN Reason: Anxiety Magnesium Hydroxide (Milk Of Magnesia 30 Ml Oral.Susp) 30 ml PO DAILY PRN PRN Reason: Constipation Olanzapine (Olanzapine 7.5 Mg Tablet) 15 mg PO BEDTIME [facility] Last Admin: 11/07/24 22:03 Dose: 15 mg Olanzapine (Olanzapine 2.5 Mg Tablet) 2.5 mg PO BID PRN PRN Reason: Anxiety or Agitation Omeprazole (Omeprazole 20 Mg Capsule.) 20 mg PO DAILY@0630 [facility] Last Admin: 11/08/24 08:47 Dose: 20 mg Prazosin HCl (Prazosin Hcl 5 Mg Capsule) 5 mg PO BEDTIME [facility]; Protocol Last Admin: 11/07/24 22:03 Dose: 5 mg Trazodone HCl (Trazodone Hcl 50 Mg Tablet) 50 mg PO BEDTIME MRX1 PRN PRN Reason: Insomnia Last Admin: 11/06/24 22:26 Dose: 50 mg Vitamin D (Cholecalciferol (Vitamin D3) 25 Mcg Tablet) 50 mcg PO DAILY [facility] Last Admin: 11/08/24 08:47 Dose: 50 mcg Allergies Allergies Allergy/AdvReac Type Severity Reaction Status Date / Time amphetamine [From Adderall] Allergy Severe Anaphylaxis Verified 11/05/24 15:08 dextroamphetamine Allergy Severe Anaphylaxis Verified 11/05/24 15:08 [From Adderall] seafood Allergy Severe Anaphylaxis Verified 11/05/24 15:08 chlorine bleach in water AdvReac Intermediate rash Uncoded 11/05/24 15:08 Assessment & Plan Assessment & Plan (1) Bipolar depression: Status: Acute Code(s): F31.9 - Bipolar disorder, unspecified (2) PTSD (post-traumatic stress disorder): Status: Acute Code(s): F43.10 - Post-traumatic stress disorder, unspecified Plan Presents with history of bipolar disorder and PTSD and significant psychosocial stressors and with that context based suicidal and homicidal thoughts. Will check Depakote level in the morning plus or minus adjust dosing. Otherwise no med changes. Time to settle in milieu, engage in groups. 11/07/2024: Depakote level 66. Will increase dose from 500 mg twice daily to 750 mg twice daily 11/08: continue current tx plan. Patient educated on: diagnosis and medication risk/benefits Reason for continued inpatient stay Substantial Risk for: harm to others and med/psych decompensation Time Spent With Patient Time: Total time managing care of this patient today _20___ minutes.
[2024-11-08 20:00] VITALS: BP 139/96; PULSE 102; RESP 18; TEMP 37; O2SAT 98
[2024-11-08] MEDS: OLANZapine 7.5 MG TABLET 15 MG PO (21:07)
[2024-11-08] MEDS: hydrOXYzine HCL 25 MG TABLET PO (21:07)
[2024-11-08] MEDS: Prazosin HCL 5 MG CAPSULE PO (21:07)
[2024-11-08] MEDS: traZODone HCL 50 MG TABLET PO (21:07)
[2024-11-09 08:00] VITALS: BP 162/60; PULSE 81; RESP 16; TEMP 36.4; O2SAT 95
[2024-11-09] MEDS: Divalproex Sodium 250 MG TABLET.DR 750 MG PO ×2 (09:15→21:22)
[2024-11-09] MEDS: Cholecalciferol (Vitamin D3) 25 MCG TABLET 50 MCG PO (09:15)
[2024-11-09] MEDS: Benztropine Mesylate 0.5 MG TABLET PO ×2 (09:15→21:22)
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
[2024-11-09 19:41] VITALS: BP 182/89; PULSE 67; TEMP 36.6; O2SAT 99
[2024-11-09 21:21] VITALS: BP 132/89
[2024-11-09] MEDS: Prazosin HCL 5 MG CAPSULE PO (21:21)
[2024-11-09] MEDS: OLANZapine 7.5 MG TABLET 15 MG PO (21:22)
[2024-11-10] MEDS: Omeprazole 20 MG CAPSULE.DR PO (06:50)
[2024-11-10 08:00] VITALS: BP 143/64; PULSE 65; RESP 16; TEMP 36.3; O2SAT 98
[2024-11-10] MEDS: Divalproex Sodium 250 MG TABLET.DR 750 MG PO ×2 (08:50→22:18)
[2024-11-10] MEDS: Benztropine Mesylate 0.5 MG TABLET PO ×2 (08:50→22:18)
[2024-11-10] MEDS: Cholecalciferol (Vitamin D3) 25 MCG TABLET 50 MCG PO (08:50)
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
[2024-11-10 20:00] VITALS: BP 136/77; PULSE 71; TEMP 36.5; O2SAT 97
[2024-11-10 22:17] VITALS: BP 133/77
[2024-11-10] MEDS: Prazosin HCL 1 MG CAPSULE 6 MG PO (22:17)
[2024-11-10] MEDS: OLANZapine 7.5 MG TABLET 15 MG PO (22:18)
[2024-11-10] MEDS: traZODone HCL 100 MG TABLET PO (22:18)
[2024-11-11 08:00] VITALS: BP 116/62; PULSE 91; RESP 16; TEMP 36.2; O2SAT 95
[2024-11-11] MEDS: Benztropine Mesylate 0.5 MG TABLET PO ×2 (09:10→22:06)
[2024-11-11] MEDS: Cholecalciferol (Vitamin D3) 25 MCG TABLET 50 MCG PO (09:10)
--- NOTE | 2024-11-11 14:33 | HO.PSYCHPN ---
Subjective Subjective Date of Service: 11/11/24 Reason For Visit: [place] Subjective Notes: Conditional Voluntary Healthcare Proxy: No Guardianship: No Medical Problems Affecting Mental Status: No Interim History: Reports some improvement with sleep. Received a copy of support letter from PCP. [facility] team will also provide a letter. Attending groups today, meeting with peers, team, talking and open to suggestions on how to best adovcate for himself. We will hold on medication changes today and continue to assess efficacy. Tells team he has concerns with Depakote dosing, denied to today. Medication Compliance: Yes Side effects from medications: No Attending Groups: Yes Review of Systems Acute medical concerns: No Medical Review of Systems: unchanged Review of Systems Review of Systems Yes all other systems are reviewed and are negative Mental Status Exam Mental Status Exam Patient Appearance: Appropriate Patient Orientation: Person, Place, Time and Situation Level of Consciousness: Alert Patient Behavior: Talkative and Good Eye Contact Mood Description: Anxious and Apprehensive Affect Description: Anxious and Apprehensive Patient Cognition Impaired: No Ability to Follow Directions: Good Speech Pattern: Spontaneous Speech Memory Description: Intact Hallucinations: None Delusions: Not Present Thought Process: Rumination Thought Content: positive for Circumstantial, positive for Perseveration, positive for Preoccupation and positive for Suicidal Ideation Depressive Symptoms: Increased Anxiety, Hopelessness, Unhappiness and Thoughts of /Suicide Judgement: Fair Diagnostics Vital Signs (24Hr): Vital Signs - 24 hr 11/10/24 20:00 11/10/24 22:17 11/11/24 08:00 Temperature 97.7 F 97.1 F Pulse Rate 71 91 Respiratory Rate 16 Blood Pressure 136/77 133/77 116/62 Pulse Oximetry 97 95 Oxygen Delivery Method Room Air BMI result Body Mass Index 25.1 Labs 11/05/24 15:21 11/05/24 15:21 Medications Medications Current Medications Acetaminophen (Acetaminophen 325 Mg Tablet) 650 mg PO Q6H PRN PRN Reason: Headache/Pain Mild Scale (1-3) Al Hydroxide/Mg Hydroxide (Magnesium Hydrox/Alum Hydrox 30 Ml Oral.Susp) 30 ml PO Q6H PRN PRN Reason: Heartburn/Nausea Benztropine Mesylate (Benztropine Mesylate 0.5 Mg Tablet) 0.5 mg PO BID [facility] Last Admin: 11/11/24 09:10 Dose: 0.5 mg Divalproex Sodium (Divalproex Sodium 250 Mg Tablet.) 750 mg PO BID [facility] Last Admin: 11/10/24 22:18 Dose: 750 mg Hydroxyzine HCl (Hydroxyzine Hcl 25 Mg Tablet) 25 mg PO Q6H PRN PRN Reason: Anxiety Last Admin: 11/08/24 21:07 Dose: 25 mg Hydroxyzine HCl (Hydroxyzine Hcl 25 Mg Tablet) 25 mg PO BID PRN PRN Reason: Anxiety Magnesium Hydroxide (Milk Of Magnesia 30 Ml Oral.Susp) 30 ml PO DAILY PRN PRN Reason: Constipation Olanzapine (Olanzapine 7.5 Mg Tablet) 15 mg PO BEDTIME [facility]U Last Admin: 11/10/24 22:18 Dose: 15 mg Olanzapine (Olanzapine 2.5 Mg Tablet) 2.5 mg PO BID PRN PRN Reason: Anxiety or Agitation Omeprazole (Omeprazole 20 Mg Capsule.) 20 mg PO 0900 [facility] Prazosin HCl (Prazosin Hcl 1 Mg Capsule) 6 mg PO BEDTIME [facility]U; Protocol Last Admin: 11/10/24 22:17 Dose: 6 mg Trazodone HCl (Trazodone Hcl 100 Mg Tablet) 100 mg PO BEDTIME [facility] Last Admin: 11/10/24 22:18 Dose: 100 mg Vitamin D (Cholecalciferol (Vitamin D3) 25 Mcg Tablet) 50 mcg PO DAILY [facility] Last Admin: 11/11/24 09:10 Dose: 50 mcg Allergies Allergies Allergy/AdvReac Type Severity Reaction Status Date / Time amphetamine [From Adderall] Allergy Severe Anaphylaxis Verified 11/05/24 15:08 dextroamphetamine Allergy Severe Anaphylaxis Verified 11/05/24 15:08 [From Adderall] seafood Allergy Severe Anaphylaxis Verified 11/05/24 15:08 chlorine bleach in water AdvReac Intermediate rash Uncoded 11/05/24 15:08 Assessment & Plan Assessment & Plan (1) Bipolar depression: Status: Acute Code(s): F31.9 - Bipolar disorder, unspecified (2) PTSD (post-traumatic stress disorder): Status: Acute Code(s): F43.10 - Post-traumatic stress disorder, unspecified Plan Presents with history of bipolar disorder and PTSD and significant psychosocial stressors and with that context based suicidal and homicidal thoughts. Will check Depakote level in the morning plus or minus adjust dosing. Otherwise no med changes. Time to settle in milieu, engage in groups. 11/07/2024: Depakote level 66. Will increase dose from 500 mg twice daily to 750 mg twice daily 11/08: continue current tx plan. 11/11: Continue tx Reason for continued inpatient stay Substantial Risk for: rapid decompensation Time Spent With Patient Time: Total time managing care of this patient today ____ minutes.
[2024-11-11 20:00] VITALS: BP 133/79; PULSE 86; TEMP 36.6; O2SAT 97
[2024-11-11 22:00] VITALS: BP 135/71; PULSE 92; TEMP 36.6
[2024-11-11 22:02] VITALS: BP 135/71
[2024-11-11] MEDS: Prazosin HCL 1 MG CAPSULE 6 MG PO (22:02)
[2024-11-11] MEDS: Divalproex Sodium 250 MG TABLET.DR 750 MG PO (22:04)
[2024-11-11] MEDS: traZODone HCL 100 MG TABLET PO (22:05)
[2024-11-11] MEDS: OLANZapine 7.5 MG TABLET 15 MG PO (22:05)
[2024-11-12 08:00] VITALS: BP 126/62; PULSE 90; RESP 16; TEMP 36.5; O2SAT 97
[2024-11-12] MEDS: Divalproex Sodium 250 MG TABLET.DR 750 MG PO ×2 (09:37→21:39)
[2024-11-12] MEDS: hydrOXYzine HCL 25 MG TABLET PO (09:37)
[2024-11-12] MEDS: Benztropine Mesylate 0.5 MG TABLET PO ×2 (09:37→21:39)
[2024-11-12] MEDS: Omeprazole 20 MG CAPSULE.DR PO (09:40)
--- NOTE | 2024-11-12 09:54 | HO.PSYCHPN ---
Subjective Subjective Date of Service: 11/12/24 Reason For Visit: [place] Subjective Notes: Conditional Voluntary Healthcare Proxy: No Guardianship: No Medical Problems Affecting Mental Status: No Interim History: Active in milieu. Denies issues with meds/Depakote titration, however is talking with team about this. Dosages not altered today. Working on his housing issues, making some calls and working with the team he reports with their suggestions for his ongoing progress. Medication Compliance: Yes Side effects from medications: No Attending Groups: Intermittent Review of Systems Acute medical concerns: No Review of Systems Review of Systems Yes all other systems are reviewed and are negative Mental Status Exam Mental Status Exam Patient Appearance: Appropriate Patient Orientation: Person, Place, Time and Situation Level of Consciousness: Alert Patient Behavior: Talkative and Good Eye Contact Mood Description: Anxious and Apprehensive Affect Description: Anxious and Apprehensive Patient Cognition Impaired: No Ability to Follow Directions: Good Speech Pattern: Spontaneous Speech Memory Description: Intact Hallucinations: None Delusions: Not Present Thought Process: Rumination Thought Content: positive for Circumstantial, positive for Perseveration, positive for Preoccupation and positive for Suicidal Ideation Depressive Symptoms: Increased Anxiety, Hopelessness, Unhappiness and Thoughts of /Suicide Judgement: Fair Diagnostics Vital Signs (24Hr): Vital Signs - 24 hr 11/11/24 20:00 11/11/24 22:00 11/11/24 22:02 Temperature 97.8 F 97.8 F Pulse Rate 86 92 Respiratory Rate Blood Pressure 133/79 135/71 135/71 Pulse Oximetry 97 Oxygen Delivery Method Room Air 11/12/24 08:00 Temperature 97.7 F Pulse Rate 90 Respiratory Rate 16 Blood Pressure 126/62 Pulse Oximetry 97 Oxygen Delivery Method BMI result Body Mass Index 25.1 Labs 11/05/24 15:21 11/05/24 15:21 Medications Medications Current Medications Acetaminophen (Acetaminophen 325 Mg Tablet) 650 mg PO Q6H PRN PRN Reason: Headache/Pain Mild Scale (1-3) Al Hydroxide/Mg Hydroxide (Magnesium Hydrox/Alum Hydrox 30 Ml Oral.Susp) 30 ml PO Q6H PRN PRN Reason: Heartburn/Nausea Benztropine Mesylate (Benztropine Mesylate 0.5 Mg Tablet) 0.5 mg PO BID [facility] Last Admin: 11/12/24 09:37 Dose: 0.5 mg Divalproex Sodium (Divalproex Sodium 250 Mg Tablet.) 750 mg PO BID [facility] Last Admin: 11/12/24 09:37 Dose: 750 mg Hydroxyzine HCl (Hydroxyzine Hcl 25 Mg Tablet) 25 mg PO Q6H PRN PRN Reason: Anxiety Last Admin: 11/12/24 09:37 Dose: 25 mg Hydroxyzine HCl (Hydroxyzine Hcl 25 Mg Tablet) 25 mg PO BID PRN PRN Reason: Anxiety Magnesium Hydroxide (Milk Of Magnesia 30 Ml Oral.Susp) 30 ml PO DAILY PRN PRN Reason: Constipation Olanzapine (Olanzapine 7.5 Mg Tablet) 15 mg PO BEDTIME [facility] Last Admin: 11/11/24 22:05 Dose: 15 mg Olanzapine (Olanzapine 2.5 Mg Tablet) 2.5 mg PO BID PRN PRN Reason: Anxiety or Agitation Omeprazole (Omeprazole 20 Mg Capsule.) 20 mg PO 0900 [facility] Last Admin: 11/12/24 09:40 Dose: 20 mg Prazosin HCl (Prazosin Hcl 1 Mg Capsule) 6 mg PO BEDTIME [facility]U; Protocol Last Admin: 11/11/24 22:02 Dose: 6 mg Trazodone HCl (Trazodone Hcl 100 Mg Tablet) 100 mg PO BEDTIME [facility] Last Admin: 11/11/24 22:05 Dose: 100 mg Vitamin D (Cholecalciferol (Vitamin D3) 25 Mcg Tablet) 50 mcg PO DAILY [facility] Last Admin: 11/12/24 09:40 Dose: Not Given Allergies Allergies Allergy/AdvReac Type Severity Reaction Status Date / Time amphetamine [From Adderall] Allergy Severe Anaphylaxis Verified 11/05/24 15:08 dextroamphetamine Allergy Severe Anaphylaxis Verified 11/05/24 15:08 [From Adderall] seafood Allergy Severe Anaphylaxis Verified 11/05/24 15:08 chlorine bleach in water AdvReac Intermediate rash Uncoded 11/05/24 15:08 Assessment & Plan Assessment & Plan (1) Bipolar depression: Status: Acute Code(s): F31.9 - Bipolar disorder, unspecified (2) PTSD (post-traumatic stress disorder): Status: Acute Code(s): F43.10 - Post-traumatic stress disorder, unspecified Plan Presents with history of bipolar disorder and PTSD and significant psychosocial stressors and with that context based suicidal and homicidal thoughts. Will check Depakote level in the morning plus or minus adjust dosing. Otherwise no med changes. Time to settle in milieu, engage in groups. 11/07/2024: Depakote level 66. Will increase dose from 500 mg twice daily to 750 mg twice daily 11/08: continue current tx plan. 11/11: Continue tx 11/12: Continue tx. Reason for continued inpatient stay Substantial Risk for: rapid decompensation Time Spent With Patient Time: Total time managing care of this patient today ____ minutes.
[2024-11-12 20:00] VITALS: BP 151/63; PULSE 94; RESP 18; TEMP 36.5; O2SAT 97
[2024-11-12] MEDS: OLANZapine 7.5 MG TABLET 15 MG PO (21:39)
[2024-11-12] MEDS: Prazosin HCL 1 MG CAPSULE 6 MG PO (21:39)
[2024-11-13 08:00] VITALS: RESP 18
[2024-11-13] MEDS: Benztropine Mesylate 0.5 MG TABLET PO ×2 (09:04→22:31)
[2024-11-13] MEDS: Divalproex Sodium 250 MG TABLET.DR 750 MG PO ×2 (09:04→22:32)
[2024-11-13] MEDS: Cholecalciferol (Vitamin D3) 25 MCG TABLET 50 MCG PO (09:04)
[2024-11-13] MEDS: Acetaminophen 325 MG TABLET 650 MG PO (12:27)
[2024-11-13] MEDS: Ibuprofen 600 MG TABLET PO (14:28)
--- NOTE | 2024-11-13 18:49 | HO.PSYCHPN ---
Subjective Subjective Date of Service: 11/13/24 Reason For Visit: [place] Interim History: Met with patient; discussed with team Patient says I am trying to maintain... He reports that he is worried about his dog because the person watching him can not afford food. However he overall feels that he is doing better. Mental Status Exam Mental Status Exam Patient Appearance: Appropriate Patient Orientation: Person, Place, Time and Situation Level of Consciousness: Alert Patient Behavior: Appropriate, Talkative and Good Eye Contact Mood Description: Anxious Affect Description: Anxious Patient Cognition Impaired: No Ability to Follow Directions: Good Speech Pattern: Spontaneous Speech Memory Description: Intact Hallucinations: None Delusions: Not Present Thought Process: Goal Oriented and Linear Thought Content: positive for Perseveration and positive for Suicidal Ideation (denies) Judgement: Fair Diagnostics Vital Signs (24Hr): Vital Signs - 24 hr 11/12/24 20:00 11/13/24 08:00 Temperature 97.7 F Pulse Rate 94 Respiratory Rate 18 18 Blood Pressure 151/63 H Pulse Oximetry 97 Oxygen Delivery Method Room Air BMI result Body Mass Index 25.1 Labs 11/05/24 15:21 11/05/24 15:21 Medications Medications Current Medications Acetaminophen (Acetaminophen 325 Mg Tablet) 650 mg PO Q6H PRN PRN Reason: Headache/Pain Mild Scale (1-3) Last Admin: 11/13/24 12:27 Dose: 650 mg Al Hydroxide/Mg Hydroxide (Magnesium Hydrox/Alum Hydrox 30 Ml Oral.Susp) 30 ml PO Q6H PRN PRN Reason: Heartburn/Nausea Benztropine Mesylate (Benztropine Mesylate 0.5 Mg Tablet) 0.5 mg PO BID REPLACED BY [facility] Last Admin: 11/13/24 09:04 Dose: 0.5 mg Divalproex Sodium (Divalproex Sodium 250 Mg Tablet.Dr) 750 mg PO BID REPLACED BY [facility] Last Admin: 11/13/24 09:04 Dose: 750 mg Hydroxyzine HCl (Hydroxyzine Hcl 25 Mg Tablet) 25 mg PO Q6H PRN PRN Reason: Anxiety Last Admin: 11/12/24 09:37 Dose: 25 mg Hydroxyzine HCl (Hydroxyzine Hcl 25 Mg Tablet) 25 mg PO BID PRN PRN Reason: Anxiety Ibuprofen (Ibuprofen 600 Mg Tablet) 600 mg PO Q8H PRN PRN Reason: Pain, Mild (Pain Scale 1-3) Last Admin: 11/13/24 14:28 Dose: 600 mg Magnesium Hydroxide (Milk Of Magnesia 30 Ml Oral.Susp) 30 ml PO DAILY PRN PRN Reason: Constipation Olanzapine (Olanzapine 7.5 Mg Tablet) 15 mg PO BEDTIME [facility] Last Admin: 11/12/24 21:39 Dose: 15 mg Olanzapine (Olanzapine 2.5 Mg Tablet) 2.5 mg PO BID PRN PRN Reason: Anxiety or Agitation Omeprazole (Omeprazole 20 Mg Capsule.Dr) 20 mg PO 0900 [facility] Last Admin: 11/13/24 09:06 Dose: Not Given Prazosin HCl (Prazosin Hcl 1 Mg Capsule) 6 mg PO BEDTIME [facility]; Protocol Last Admin: 11/12/24 21:39 Dose: 6 mg Trazodone HCl (Trazodone Hcl 100 Mg Tablet) 100 mg PO BEDTIME [facility] Last Admin: 11/12/24 21:43 Dose: Not Given Vitamin D (Cholecalciferol (Vitamin D3) 25 Mcg Tablet) 50 mcg PO DAILY [facility] Last Admin: 11/13/24 09:04 Dose: 50 mcg Allergies Allergies Allergy/AdvReac Type Severity Reaction Status Date / Time amphetamine [From Adderall] Allergy Severe Anaphylaxis Verified 11/05/24 15:08 dextroamphetamine Allergy Severe Anaphylaxis Verified 11/05/24 15:08 [From Adderall] seafood Allergy Severe Anaphylaxis Verified 11/05/24 15:08 chlorine bleach in water AdvReac Intermediate rash Uncoded 11/05/24 15:08 Assessment & Plan Assessment & Plan (1) Bipolar depression: Status: Acute Code(s): F31.9 - Bipolar disorder, unspecified (2) PTSD (post-traumatic stress disorder): Status: Acute Code(s): F43.10 - Post-traumatic stress disorder, unspecified Plan Presents with history of bipolar disorder and PTSD and significant psychosocial stressors and with that context based suicidal and homicidal thoughts. Will check Depakote level in the morning plus or minus adjust dosing. Otherwise no med changes. Time to settle in milieu, engage in groups. 11/07/2024: Depakote level 66. Will increase dose from 500 mg twice daily to 750 mg twice daily 11/08: continue current tx plan. 11/11: Continue tx 11/12: Continue tx. 11/13 Patient says I am trying to maintain... He reports that he is worried about his dog because the person watching him can not afford food. However he overall feels that he is doing better. -feels medications have been helpful; continue treatment plan Patient educated on: diagnosis and medication risk/benefits Informed Consent: understands Reason for continued inpatient stay Substantial Risk for: stable for discharge Time Spent With Patient Time: Total time managing care of this patient today ____ minutes.
[2024-11-13 19:48] VITALS: BP 140/86; PULSE 94; TEMP 36.8; O2SAT 96
[2024-11-13 22:31] VITALS: BP 130/72
[2024-11-13] MEDS: Prazosin HCL 1 MG CAPSULE 6 MG PO (22:31)
[2024-11-13] MEDS: OLANZapine 7.5 MG TABLET 15 MG PO (22:31)
[2024-11-13] MEDS: traZODone HCL 100 MG TABLET PO (22:34)
[2024-11-14 07:38] VITALS: BP 131/60; PULSE 83; RESP 18; TEMP 36.8; O2SAT 94
[2024-11-14] MEDS: Benztropine Mesylate 0.5 MG TABLET PO ×2 (08:52→21:53)
[2024-11-14] MEDS: Cholecalciferol (Vitamin D3) 25 MCG TABLET 50 MCG PO (08:52)
[2024-11-14] MEDS: Divalproex Sodium 250 MG TABLET.DR 750 MG PO ×2 (08:52→21:53)
[2024-11-14] MEDS: Omeprazole 20 MG CAPSULE.DR PO (08:56)
--- NOTE | 2024-11-14 16:05 | P.PNPSI_ITS ---
Subjective Subjective Date of Service: 11/14/24 Reason For Visit: [place] Interim History: Met with patient; discussed with team Patient says he is feeling better now that he figured out the dog food issue. He still feeling anxiety about psychosocial stressors including housing situations and history of DCF. Otherwise says that he is hanging in there Mental Status Exam Mental Status Exam Patient Appearance: Appropriate Patient Orientation: Person, Place, Time and Situation Level of Consciousness: Alert Patient Behavior: Appropriate, Talkative and Good Eye Contact Mood Description: Anxious Affect Description: Anxious Patient Cognition Impaired: No Ability to Follow Directions: Good Speech Pattern: Spontaneous Speech Memory Description: Intact Hallucinations: None Delusions: Not Present Thought Process: Goal Oriented and Linear Thought Content: positive for Perseveration and positive for Suicidal Ideation (denies) Judgement: Fair Diagnostics Vital Signs (24Hr): Vital Signs - 24 hr 11/13/24 19:48 11/13/24 22:31 11/14/24 07:38 Temperature 98.2 F 98.2 F Pulse Rate 94 83 Respiratory Rate 18 Blood Pressure 140/86 H 130/72 131/60 Pulse Oximetry 96 94 Oxygen Delivery Method Room Air Room Air BMI result Body Mass Index 25.1 Labs 11/05/24 15:21 11/05/24 15:21 Medications Medications Current Medications Acetaminophen (Acetaminophen 325 Mg Tablet) 650 mg PO Q6H PRN PRN Reason: Headache/Pain Mild Scale (1-3) Last Admin: 11/13/24 12:27 Dose: 650 mg Al Hydroxide/Mg Hydroxide (Magnesium Hydrox/Alum Hydrox 30 Ml Oral.Susp) 30 ml PO Q6H PRN PRN Reason: Heartburn/Nausea Benztropine Mesylate (Benztropine Mesylate 0.5 Mg Tablet) 0.5 mg PO BID [facility] Last Admin: 11/14/24 08:52 Dose: 0.5 mg Divalproex Sodium (Divalproex Sodium 250 Mg Tablet.Dr) 750 mg PO BID [facility] Last Admin: 11/14/24 08:52 Dose: 750 mg Hydroxyzine HCl (Hydroxyzine Hcl 25 Mg Tablet) 25 mg PO Q6H PRN PRN Reason: Anxiety Last Admin: 11/12/24 09:37 Dose: 25 mg Hydroxyzine HCl (Hydroxyzine Hcl 25 Mg Tablet) 25 mg PO BID PRN PRN Reason: Anxiety Ibuprofen (Ibuprofen 600 Mg Tablet) 600 mg PO Q8H PRN PRN Reason: Pain, Mild (Pain Scale 1-3) Last Admin: 11/13/24 14:28 Dose: 600 mg Magnesium Hydroxide (Milk Of Magnesia 30 Ml Oral.Susp) 30 ml PO DAILY PRN PRN Reason: Constipation Olanzapine (Olanzapine 7.5 Mg Tablet) 15 mg PO BEDTIME [facility] Last Admin: 11/13/24 22:31 Dose: 15 mg Olanzapine (Olanzapine 2.5 Mg Tablet) 2.5 mg PO BID PRN PRN Reason: Anxiety or Agitation Omeprazole (Omeprazole 20 Mg Capsule.Dr) 20 mg PO 0900 [facility] Last Admin: 11/14/24 08:56 Dose: 20 mg Prazosin HCl (Prazosin Hcl 1 Mg Capsule) 6 mg PO BEDTIME [facility]; Protocol Last Admin: 11/13/24 22:31 Dose: 6 mg Trazodone HCl (Trazodone Hcl 100 Mg Tablet) 100 mg PO BEDTIME [facility] Last Admin: 11/13/24 22:34 Dose: 100 mg Vitamin D (Cholecalciferol (Vitamin D3) 25 Mcg Tablet) 50 mcg PO DAILY [facility] Last Admin: 11/14/24 08:52 Dose: 50 mcg Allergies Allergies Allergy/AdvReac Type Severity Reaction Status Date / Time amphetamine [From Adderall] Allergy Severe Anaphylaxis Verified 11/05/24 15:08 dextroamphetamine Allergy Severe Anaphylaxis Verified 11/05/24 15:08 [From Adderall] seafood Allergy Severe Anaphylaxis Verified 11/05/24 15:08 chlorine bleach in water AdvReac Intermediate rash Uncoded 11/05/24 15:08 Assessment & Plan Assessment & Plan (1) Bipolar depression: Status: Acute Code(s): F31.9 - Bipolar disorder, unspecified (2) PTSD (post-traumatic stress disorder): Status: Acute Code(s): F43.10 - Post-traumatic stress disorder, unspecified Plan Presents with history of bipolar disorder and PTSD and significant psychosocial stressors and with that context based suicidal and homicidal thoughts. Will check Depakote level in the morning plus or minus adjust dosing. Otherwise no med changes. Time to settle in milieu, engage in groups. 11/07/2024: Depakote level 66. Will increase dose from 500 mg twice daily to 750 mg twice daily 11/08: continue current tx plan. 11/11: Continue tx 11/12: Continue tx. 11/13 Patient says I am trying to maintain... He reports that he is worried about his dog because the person watching him can not afford food. However he overall feels that he is doing better. -feels medications have been helpful; continue treatment plan 11/14 Patient says he is feeling better now that he figured out the dog food issue. He still feeling anxiety about psychosocial stressors including housing situations and history of DCF. Otherwise says that he is hanging in there continue tx plan Patient educated on: diagnosis Reason for continued inpatient stay Substantial Risk for: stable for discharge and rapid decompensation Time Spent With Patient Time: Total time managing care of this patient today ____ minutes.
[2024-11-14 20:00] VITALS: BP 146/78; PULSE 96; RESP 14; TEMP 37; O2SAT 98
[2024-11-14] MEDS: OLANZapine 7.5 MG TABLET 15 MG PO (21:52)
[2024-11-14] MEDS: Prazosin HCL 1 MG CAPSULE 6 MG PO (21:52)
[2024-11-14] MEDS: Throat Lozenge, Medicated LOZENGE 1 LOZENGE MUCOUS MEM (23:05)
[2024-11-15] MEDS: traZODone HCL 100 MG TABLET PO ×2 (00:26→22:37)
[2024-11-15 08:00] VITALS: BP 127/66; PULSE 85; RESP 16; TEMP 36.3; O2SAT 95
[2024-11-15] MEDS: Benztropine Mesylate 0.5 MG TABLET PO ×2 (08:50→22:37)
[2024-11-15] MEDS: Divalproex Sodium 250 MG TABLET.DR 750 MG PO (08:50)
[2024-11-15] MEDS: Omeprazole 20 MG CAPSULE.DR PO (08:50)
[2024-11-15] MEDS: hydrOXYzine HCL 25 MG TABLET PO (08:50)
--- NOTE | 2024-11-15 16:12 | P.PNPSI_ITS ---
Subjective Subjective Date of Service: 11/15/24 Reason For Visit: HI Subjective Notes: Conditional Voluntary Healthcare Proxy: No Guardianship: No Medical Problems Affecting Mental Status: No Interim History: Expressed much distress regarding care and discharge planning. Reviewed his concern with a former peer calling him n----- on the unit and his feeling that he was not supported by staff and the issue not taken seriously. As a result, states he feels he has not received the appropriate level of consideration for his needs. Discussed issues with housing-and his feeling team has not taken his concerns seriously. Discussed his interactions with housing programs and need to not return to his assigned housing as he has made a complaint to [facility] and now believes he will be targeted. States he has asked for assist for respite in [facility], closer to family and fiancee. Review of meds. Believes Depakote is too high, experiencing dry mouth-dosage adjusted, dry mouth spray ordered prn. Pt making calls this afternoon to programs in the [facility] and [facility] for added support. Will postpone discharge until these issues are resolved. Medication Compliance: Yes Side effects from medications: Yes Attending Groups: Intermittent Review of Systems Acute medical concerns: No Medical Review of Systems: unchanged Review of Systems Review of Systems Denies Mental Status Exam Mental Status Exam Patient Appearance: Appropriate Patient Orientation: Person, Place, Time and Situation Level of Consciousness: Alert Patient Behavior: Talkative and Good Eye Contact Mood Description: Angry Affect Description: Angry Patient Cognition Impaired: No Ability to Follow Directions: Fair Speech Pattern: Spontaneous Speech Memory Description: Episodic Impaired Hallucinations: None Delusions: Not Present Thought Process: Rumination Thought Content: positive for Circumstantial, positive for Perseveration and positive for Suicidal Ideation (denies) Depressive Symptoms: Increased Irritability Judgement: Good Diagnostics Vital Signs (24Hr): Vital Signs - 24 hr 11/14/24 20:00 11/15/24 08:00 Temperature 98.6 F 97.3 F Pulse Rate 96 85 Respiratory Rate 14 16 Blood Pressure 146/78 H 127/66 Pulse Oximetry 98 95 BMI result Body Mass Index 25.1 Labs 11/05/24 15:21 11/05/24 15:21 Medications Medications Current Medications Acetaminophen (Acetaminophen 325 Mg Tablet) 650 mg PO Q6H PRN PRN Reason: Headache/Pain Mild Scale (1-3) Last Admin: 11/13/24 12:27 Dose: 650 mg Al Hydroxide/Mg Hydroxide (Magnesium Hydrox/Alum Hydrox 30 Ml Oral.Susp) 30 ml PO Q6H PRN PRN Reason: Heartburn/Nausea Albuterol Sulfate (Albuterol Sulfate 90 Mcg 8 Gm Inhaler) 2 puff INHALE RQ4H PRN PRN Reason: Wheezing Benzocaine (Throat Lozenge, Medicated Lozenge) 1 lozenge MUCOUS MEM Q2H PRN PRN Reason: Sore Throat Last Admin: 11/14/24 23:05 Dose: 1 lozenge Benztropine Mesylate (Benztropine Mesylate 0.5 Mg Tablet) 0.5 mg PO BID [facility] Last Admin: 11/15/24 08:50 Dose: 0.5 mg Divalproex Sodium (Divalproex Sodium Sprinkles 125 Mg ) 625 mg PO BID [facility] Hydroxyzine HCl (Hydroxyzine Hcl 25 Mg Tablet) 25 mg PO Q6H PRN PRN Reason: Anxiety Last Admin: 11/15/24 08:50 Dose: 25 mg Hydroxyzine HCl (Hydroxyzine Hcl 25 Mg Tablet) 25 mg PO BID PRN PRN Reason: Anxiety Ibuprofen (Ibuprofen 600 Mg Tablet) 600 mg PO Q8H PRN PRN Reason: Pain, Mild (Pain Scale 1-3) Last Admin: 11/13/24 14:28 Dose: 600 mg Magnesium Hydroxide (Milk Of Magnesia 30 Ml Oral.Susp) 30 ml PO DAILY PRN PRN Reason: Constipation Olanzapine (Olanzapine 7.5 Mg Tablet) 15 mg PO BEDTIME [facility] Last Admin: 11/14/24 21:52 Dose: 15 mg Olanzapine (Olanzapine 2.5 Mg Tablet) 2.5 mg PO BID PRN PRN Reason: Anxiety or Agitation Omeprazole (Omeprazole 20 Mg Capsule.) 20 mg PO 0900 [facility] Last Admin: 11/15/24 08:50 Dose: 20 mg Prazosin HCl (Prazosin Hcl 1 Mg Capsule) 6 mg PO BEDTIME [facility]; Protocol Last Admin: 11/14/24 21:52 Dose: 6 mg Saliva Substitute (Dry Mouth [place] 60 Ml [place]) 1 spray MUCOUS MEM Q2H PRN PRN Reason: Dry Mouth Trazodone HCl (Trazodone Hcl 100 Mg Tablet) 100 mg PO BEDTIME [facility] Last Admin: 11/15/24 00:26 Dose: 100 mg Vitamin D (Cholecalciferol (Vitamin D3) 25 Mcg Tablet) 50 mcg PO DAILY [facility] Last Admin: 11/15/24 08:52 Dose: Not Given Allergies Allergies Allergy/AdvReac Type Severity Reaction Status Date / Time amphetamine [From Adderall] Allergy Severe Anaphylaxis Verified 11/05/24 15:08 dextroamphetamine Allergy Severe Anaphylaxis Verified 11/05/24 15:08 [From Adderall] seafood Allergy Severe Anaphylaxis Verified 11/05/24 15:08 chlorine bleach in water AdvReac Intermediate rash Uncoded 11/05/24 15:08 Assessment & Plan Assessment & Plan (1) Bipolar depression: Status: Acute Code(s): F31.9 - Bipolar disorder, unspecified (2) PTSD (post-traumatic stress disorder): Status: Acute Code(s): F43.10 - Post-traumatic stress disorder, unspecified Plan Presents with history of bipolar disorder and PTSD and significant psychosocial stressors and with that context based suicidal and homicidal thoughts. Will check Depakote level in the morning plus or minus adjust dosing. Otherwise no med changes. Time to settle in milieu, engage in groups. 11/07/2024: Depakote level 66. Will increase dose from 500 mg twice daily to 750 mg twice daily 11/08: continue current tx plan. 11/11: Continue tx 11/12: Continue tx. 11/13 Patient says I am trying to maintain... He reports that he is worried about his dog because the person watching him can not afford food. However he overall feels that he is doing better. -feels medications have been helpful; continue treatment plan 11/14 Patient says he is feeling better now that he figured out the dog food issue. He still feeling anxiety about psychosocial stressors including housing situations and history of DCF. Otherwise says that he is hanging in there continue tx plan 11/15 continue tx plan Reason for continued inpatient stay Substantial Risk for: rapid decompensation Time Spent With Patient Time: Total time managing care of this patient today ____ minutes.
[2024-11-15] MEDS: Dry Mouth Spray 60 ML SPRAY 1 SPRAY MUCOUS MEM (18:49)
[2024-11-15 20:00] VITALS: BP 127/75; PULSE 70; TEMP 36.7; O2SAT 97
[2024-11-15 22:36] VITALS: BP 130/72
[2024-11-15] MEDS: Divalproex Sodium Sprinkles 125 MG CAP.DR.SPR 625 MG PO (22:36)
[2024-11-15] MEDS: Prazosin HCL 1 MG CAPSULE 6 MG PO (22:36)
[2024-11-15] MEDS: OLANZapine 7.5 MG TABLET 15 MG PO (22:37)
[2024-11-16 08:00] VITALS: BP 130/69; RESP 18; TEMP 36.2; O2SAT 97
[2024-11-16] MEDS: Benztropine Mesylate 0.5 MG TABLET PO ×2 (09:01→22:19)
[2024-11-16] MEDS: Divalproex Sodium Sprinkles 125 MG CAP.DR.SPR 625 MG PO ×2 (09:01→22:18)
[2024-11-16] MEDS: Cholecalciferol (Vitamin D3) 25 MCG TABLET 50 MCG PO (09:02)
[2024-11-16 09:03] LABS: Valproate 64.8 mcg/mL (50.0-100.0)
[2024-11-16] MEDS: Omeprazole 20 MG CAPSULE.DR PO (09:05)
[2024-11-16] MEDS: Acetaminophen 325 MG TABLET 650 MG PO (09:09)
[2024-11-16] MEDS: Dry Mouth Spray 60 ML SPRAY 1 SPRAY MUCOUS MEM (09:26)
[2024-11-16] MEDS: hydrOXYzine HCL 25 MG TABLET PO (13:26)
--- NOTE | 2024-11-16 17:30 | P.PNPSI_ITS ---
Subjective Subjective Reason For Visit: HI Diagnostics Vital Signs (24Hr): Vital Signs - 24 hr 11/15/24 20:00 11/15/24 22:36 11/16/24 08:00 Temperature 98.0 F 97.1 F Pulse Rate 70 Respiratory Rate 18 Blood Pressure 127/75 130/72 130/69 Pulse Oximetry 97 97 Oxygen Delivery Method Room Air Room Air BMI result Body Mass Index 25.1 Labs 11/05/24 15:21 11/05/24 15:21 Labs: Laboratory Results - last 48 hr 11/16/24 08:23 Valproic Acid 64.8 Medications Medications Current Medications Acetaminophen (Acetaminophen 325 Mg Tablet) 650 mg PO Q6H PRN PRN Reason: Headache/Pain Mild Scale (1-3) Last Admin: 11/16/24 09:09 Dose: 650 mg Al Hydroxide/Mg Hydroxide (Magnesium Hydrox/Alum Hydrox 30 Ml Oral.Susp) 30 ml PO Q6H PRN PRN Reason: Heartburn/Nausea Albuterol Sulfate (Albuterol Sulfate 90 Mcg 8 Gm Inhaler) 2 puff INHALE RQ4H PRN PRN Reason: Wheezing Benzocaine (Throat Lozenge, Medicated Lozenge) 1 lozenge MUCOUS MEM Q2H PRN PRN Reason: Sore Throat Last Admin: 11/14/24 23:05 Dose: 1 lozenge Benztropine Mesylate (Benztropine Mesylate 0.5 Mg Tablet) 0.5 mg PO BID [facility] Last Admin: 11/16/24 09:01 Dose: 0.5 mg Divalproex Sodium (Divalproex Sodium Sprinkles 125 Mg ) 625 mg PO BID [facility] Last Admin: 11/16/24 09:01 Dose: 625 mg Hydroxyzine HCl (Hydroxyzine Hcl 25 Mg Tablet) 25 mg PO Q6H PRN PRN Reason: Anxiety Last Admin: 11/16/24 13:26 Dose: 25 mg Hydroxyzine HCl (Hydroxyzine Hcl 25 Mg Tablet) 25 mg PO BID PRN PRN Reason: Anxiety Ibuprofen (Ibuprofen 600 Mg Tablet) 600 mg PO Q8H PRN PRN Reason: Pain, Mild (Pain Scale 1-3) Last Admin: 11/13/24 14:28 Dose: 600 mg Magnesium Hydroxide (Milk Of Magnesia 30 Ml Oral.Susp) 30 ml PO DAILY PRN PRN Reason: Constipation Olanzapine (Olanzapine 7.5 Mg Tablet) 15 mg PO BEDTIME [facility] Last Admin: 11/15/24 22:37 Dose: 15 mg Olanzapine (Olanzapine 2.5 Mg Tablet) 2.5 mg PO BID PRN PRN Reason: Anxiety or Agitation Omeprazole (Omeprazole 20 Mg Capsule.Dr) 20 mg PO 0900 [facility] Last Admin: 11/16/24 09:05 Dose: 20 mg Prazosin HCl (Prazosin Hcl 1 Mg Capsule) 6 mg PO BEDTIME [facility]; Protocol Last Admin: 11/15/24 22:36 Dose: 6 mg Saliva Substitute (Dry Mouth [place] 60 Ml [place]) 1 spray MUCOUS MEM Q2H PRN PRN Reason: Dry Mouth Last Admin: 11/16/24 09:26 Dose: 1 spray Trazodone HCl (Trazodone Hcl 100 Mg Tablet) 100 mg PO BEDTIME [facility] Last Admin: 11/15/24 22:37 Dose: 100 mg Vitamin D (Cholecalciferol (Vitamin D3) 25 Mcg Tablet) 50 mcg PO DAILY [facility] Last Admin: 11/16/24 09:02 Dose: 50 mcg Allergies Allergies Allergy/AdvReac Type Severity Reaction Status Date / Time amphetamine [From Adderall] Allergy Severe Anaphylaxis Verified 11/05/24 15:08 dextroamphetamine Allergy Severe Anaphylaxis Verified 11/05/24 15:08 [From Adderall] seafood Allergy Severe Anaphylaxis Verified 11/05/24 15:08 chlorine bleach in water AdvReac Intermediate rash Uncoded 11/05/24 15:08 Assessment & Plan Assessment & Plan (1) Bipolar depression: Status: Acute Code(s): F31.9 - Bipolar disorder, unspecified (2) PTSD (post-traumatic stress disorder): Status: Acute Code(s): F43.10 - Post-traumatic stress disorder, unspecified Plan Presents with history of bipolar disorder and PTSD and significant psychosocial stressors and with that context based suicidal and homicidal thoughts. Will check Depakote level in the morning plus or minus adjust dosing. Otherwise no med changes. Time to settle in milieu, engage in groups. 11/07/2024: Depakote level 66. Will increase dose from 500 mg twice daily to 750 mg twice daily 11/08: continue current tx plan. Time Spent With Patient Time: Total time managing care of this patient today ____ minutes.
[2024-11-16 20:00] VITALS: BP 126/80; PULSE 102; TEMP 36.6; O2SAT 96
[2024-11-16] MEDS: OLANZapine 7.5 MG TABLET 15 MG PO (22:17)
[2024-11-16] MEDS: Prazosin HCL 1 MG CAPSULE 6 MG PO (22:18)
[2024-11-16] MEDS: traZODone HCL 100 MG TABLET PO (22:19)
[2024-11-17 08:00] VITALS: BP 120/66; PULSE 94; RESP 16; TEMP 36; O2SAT 96
[2024-11-17] MEDS: Divalproex Sodium Sprinkles 125 MG CAP.DR.SPR 625 MG PO ×2 (08:57→21:05)
[2024-11-17] MEDS: Benztropine Mesylate 0.5 MG TABLET PO ×2 (08:57→21:05)
[2024-11-17] MEDS: hydrOXYzine HCL 25 MG TABLET PO ×2 (08:57→21:05)
[2024-11-17] MEDS: Cholecalciferol (Vitamin D3) 25 MCG TABLET 50 MCG PO (09:00)
[2024-11-17] MEDS: Dry Mouth Spray 60 ML SPRAY 1 SPRAY MUCOUS MEM (09:01)
[2024-11-17] MEDS: Omeprazole 20 MG CAPSULE.DR PO (09:01)
--- NOTE | 2024-11-17 17:20 | HO.PSYCHPN ---
Subjective Subjective Reason For Visit: HI Diagnostics Vital Signs (24Hr): Vital Signs - 24 hr 11/16/24 20:00 11/17/24 08:00 Temperature 97.8 F 96.8 F Pulse Rate 102 H 94 Respiratory Rate 16 Blood Pressure 126/80 120/66 Pulse Oximetry 96 96 Oxygen Delivery Method Room Air BMI result Body Mass Index 25.1 Labs 11/05/24 15:21 11/05/24 15:21 Labs: Laboratory Results - last 48 hr 11/16/24 08:23 Valproic Acid 64.8 Medications Medications Current Medications Acetaminophen (Acetaminophen 325 Mg Tablet) 650 mg PO Q6H PRN PRN Reason: Headache/Pain Mild Scale (1-3) Last Admin: 11/16/24 09:09 Dose: 650 mg Al Hydroxide/Mg Hydroxide (Magnesium Hydrox/Alum Hydrox 30 Ml Oral.Susp) 30 ml PO Q6H PRN PRN Reason: Heartburn/Nausea Albuterol Sulfate (Albuterol Sulfate 90 Mcg 8 Gm Inhaler) 2 puff INHALE RQ4H PRN PRN Reason: Wheezing Benzocaine (Throat Lozenge, Medicated Lozenge) 1 lozenge MUCOUS MEM Q2H PRN PRN Reason: Sore Throat Last Admin: 11/14/24 23:05 Dose: 1 lozenge Benztropine Mesylate (Benztropine Mesylate 0.5 Mg Tablet) 0.5 mg PO BID [facility] Last Admin: 11/17/24 08:57 Dose: 0.5 mg Divalproex Sodium (Divalproex Sodium Sprinkles 125 Mg ) 625 mg PO BID [facility] Last Admin: 11/17/24 08:57 Dose: 625 mg Hydroxyzine HCl (Hydroxyzine Hcl 25 Mg Tablet) 25 mg PO Q6H PRN PRN Reason: Anxiety Last Admin: 11/17/24 08:57 Dose: 25 mg Hydroxyzine HCl (Hydroxyzine Hcl 25 Mg Tablet) 25 mg PO BID PRN PRN Reason: Anxiety Ibuprofen (Ibuprofen 600 Mg Tablet) 600 mg PO Q8H PRN PRN Reason: Pain, Mild (Pain Scale 1-3) Last Admin: 11/13/24 14:28 Dose: 600 mg Magnesium Hydroxide (Milk Of Magnesia 30 Ml Oral.Susp) 30 ml PO DAILY PRN PRN Reason: Constipation Pt Own (Act Dry Mouth Gum 1 Piece Of Gum) 1 piece of gum PO TID PRN PRN Reason: dry mouth Olanzapine (Olanzapine 7.5 Mg Tablet) 15 mg PO BEDTIME [facility] Last Admin: 11/16/24 22:17 Dose: 15 mg Olanzapine (Olanzapine 2.5 Mg Tablet) 2.5 mg PO BID PRN PRN Reason: Anxiety or Agitation Omeprazole (Omeprazole 20 Mg Capsule.Dr) 20 mg PO 0900 [facility] Last Admin: 11/17/24 09:01 Dose: 20 mg Prazosin HCl (Prazosin Hcl 1 Mg Capsule) 6 mg PO BEDTIME [facility]; Protocol Last Admin: 11/16/24 22:18 Dose: 6 mg Saliva Substitute (Dry Mouth [place] 60 Ml [place]) 1 spray MUCOUS MEM Q2H PRN PRN Reason: Dry Mouth Last Admin: 11/17/24 09:01 Dose: 1 spray Sodium Chloride (Sodium Chloride 0.65 % Nasal 44 Ml Sprbtl) 1 spray NOSTRIL-B Q1H PRN PRN Reason: Congestion Trazodone HCl (Trazodone Hcl 100 Mg Tablet) 100 mg PO BEDTIME [facility] Last Admin: 11/16/24 22:19 Dose: 100 mg Vitamin D (Cholecalciferol (Vitamin D3) 25 Mcg Tablet) 50 mcg PO DAILY [facility] Last Admin: 11/17/24 09:00 Dose: 50 mcg Allergies Allergies Allergy/AdvReac Type Severity Reaction Status Date / Time amphetamine [From Adderall] Allergy Severe Anaphylaxis Verified 11/05/24 15:08 dextroamphetamine Allergy Severe Anaphylaxis Verified 11/05/24 15:08 [From Adderall] seafood Allergy Severe Anaphylaxis Verified 11/05/24 15:08 chlorine bleach in water AdvReac Intermediate rash Uncoded 11/05/24 15:08 Assessment & Plan Assessment & Plan (1) Bipolar depression: Status: Acute Code(s): F31.9 - Bipolar disorder, unspecified (2) PTSD (post-traumatic stress disorder): Status: Acute Code(s): F43.10 - Post-traumatic stress disorder, unspecified Plan Presents with history of bipolar disorder and PTSD and significant psychosocial stressors and with that context based suicidal and homicidal thoughts. Will check Depakote level in the morning plus or minus adjust dosing. Otherwise no med changes. Time to settle in milieu, engage in groups. 11/07/2024: Depakote level 66. Will increase dose from 500 mg twice daily to 750 mg twice daily 11/08: continue current tx plan. Time Spent With Patient Time: Total time managing care of this patient today ____ minutes.
[2024-11-17 20:00] VITALS: BP 175/91; PULSE 105; RESP 20; TEMP 36.9; O2SAT 97
[2024-11-17] MEDS: OLANZapine 7.5 MG TABLET 15 MG PO (21:07)
[2024-11-17] MEDS: traZODone HCL 100 MG TABLET PO (21:07)
[2024-11-17] MEDS: Prazosin HCL 1 MG, Prazosin HCL 5 MG 6 MG PO (21:07)
[2024-11-18 07:00] VITALS: BMI 27.7
[2024-11-18 08:00] VITALS: BP 138/78; PULSE 117; RESP 17; TEMP 36.7; O2SAT 95
[2024-11-18] MEDS: Cholecalciferol (Vitamin D3) 25 MCG TABLET 50 MCG PO (08:32)
[2024-11-18] MEDS: Benztropine Mesylate 0.5 MG TABLET PO ×2 (08:32→21:29)
[2024-11-18] MEDS: Divalproex Sodium Sprinkles 125 MG CAP.DR.SPR 625 MG PO ×2 (08:32→21:25)
[2024-11-18] MEDS: Omeprazole 20 MG CAPSULE.DR PO (09:04)
[2024-11-18] MEDS: Dry Mouth Spray 60 ML SPRAY 1 SPRAY MUCOUS MEM (09:05)
[2024-11-18] MEDS: [UNRECOGNIZED DRUG - OTHER] 1 EACH PO (11:23)
[2024-11-18] MEDS: Sodium Chloride 0.65 % Nasal 44 ML SPRBTL 1 SPRAY NOSTRIL-B (11:25)
[2024-11-18] MEDS: OLANZapine 2.5 MG TABLET PO (13:53)
[2024-11-18] MEDS: hydrOXYzine HCL 25 MG TABLET PO (13:55)
[2024-11-18] MEDS: Ibuprofen 600 MG TABLET PO (13:55)
[2024-11-18] MEDS: Acetaminophen 325 MG TABLET 650 MG PO (16:10)
--- NOTE | 2024-11-18 18:25 | HO.PSYCHPN ---
Subjective Subjective Reason For Visit: HI Diagnostics Vital Signs (24Hr): Vital Signs - 24 hr 11/17/24 20:00 11/18/24 08:00 Temperature 98.4 F 98.0 F Pulse Rate 105 H 117 H Respiratory Rate 20 17 Blood Pressure 175/91 H 138/78 Pulse Oximetry 97 95 Oxygen Delivery Method Room Air Room Air BMI result Body Mass Index 27.7 Labs 11/05/24 15:21 11/05/24 15:21 Medications Medications Current Medications Acetaminophen (Acetaminophen 325 Mg Tablet) 650 mg PO Q6H PRN PRN Reason: Headache/Pain Mild Scale (1-3) Last Admin: 11/18/24 16:10 Dose: 650 mg Al Hydroxide/Mg Hydroxide (Magnesium Hydrox/Alum Hydrox 30 Ml Oral.Susp) 30 ml PO Q6H PRN PRN Reason: Heartburn/Nausea Albuterol Sulfate (Albuterol Sulfate 90 Mcg 8 Gm Inhaler) 2 puff INHALE RQ4H PRN PRN Reason: Wheezing Benzocaine (Throat Lozenge, Medicated Lozenge) 1 lozenge MUCOUS MEM Q2H PRN PRN Reason: Sore Throat Last Admin: 11/14/24 23:05 Dose: 1 lozenge Benztropine Mesylate (Benztropine Mesylate 0.5 Mg Tablet) 0.5 mg PO BID [facility] Last Admin: 11/18/24 08:32 Dose: 0.5 mg Divalproex Sodium (Divalproex Sodium Sprinkles 125 Mg ) 625 mg PO BID [facility] Last Admin: 11/18/24 08:32 Dose: 625 mg Hydroxyzine HCl (Hydroxyzine Hcl 25 Mg Tablet) 25 mg PO Q6H PRN PRN Reason: Anxiety Last Admin: 11/18/24 13:55 Dose: 25 mg Hydroxyzine HCl (Hydroxyzine Hcl 25 Mg Tablet) 25 mg PO BID PRN PRN Reason: Anxiety Ibuprofen (Ibuprofen 600 Mg Tablet) 600 mg PO Q8H PRN PRN Reason: Pain, Mild (Pain Scale 1-3) Last Admin: 11/18/24 13:55 Dose: 600 mg Magnesium Hydroxide (Milk Of Magnesia 30 Ml Oral.Susp) 30 ml PO DAILY PRN PRN Reason: Constipation Pt Own (Act Dry Mouth Gum 1 Piece Of Gum) 1 piece of gum PO TID PRN PRN Reason: dry mouth Last Admin: 11/18/24 11:23 Dose: 1 piece of gum Olanzapine (Olanzapine 2.5 Mg Tablet) 2.5 mg PO BID PRN PRN Reason: Anxiety or Agitation Last Admin: 11/18/24 13:53 Dose: 2.5 mg Olanzapine (Olanzapine 10 Mg Tablet) 20 mg PO BEDTIME [facility] Omeprazole (Omeprazole 20 Mg Capsule.Dr) 20 mg PO 0900 [facility] Last Admin: 11/18/24 09:04 Dose: 20 mg Prazosin HCl 1 mg/ Prazosin (HCl 5 mg) 6 mg PO BEDTIME [facility] Last Admin: 11/17/24 21:07 Dose: 6 mg Saliva Substitute (Dry Mouth [place] 60 Ml [place]) 1 spray MUCOUS MEM Q2H PRN PRN Reason: Dry Mouth Last Admin: 11/18/24 09:05 Dose: 1 spray Sodium Chloride (Sodium Chloride 0.65 % Nasal 44 Ml Sprbtl) 1 spray NOSTRIL-B Q1H PRN PRN Reason: Congestion Last Admin: 11/18/24 11:25 Dose: 1 spray Trazodone HCl (Trazodone Hcl 100 Mg Tablet) 100 mg PO BEDTIME [facility] Last Admin: 11/17/24 21:07 Dose: 100 mg Vitamin D (Cholecalciferol (Vitamin D3) 25 Mcg Tablet) 50 mcg PO DAILY [facility] Last Admin: 11/18/24 08:32 Dose: 50 mcg Allergies Allergies Allergy/AdvReac Type Severity Reaction Status Date / Time amphetamine [From Adderall] Allergy Severe Anaphylaxis Verified 11/05/24 15:08 dextroamphetamine Allergy Severe Anaphylaxis Verified 11/05/24 15:08 [From Adderall] seafood Allergy Severe Anaphylaxis Verified 11/05/24 15:08 chlorine bleach in water AdvReac Intermediate rash Uncoded 11/05/24 15:08 Assessment & Plan Assessment & Plan (1) Bipolar depression: Status: Acute Code(s): F31.9 - Bipolar disorder, unspecified (2) PTSD (post-traumatic stress disorder): Status: Acute Code(s): F43.10 - Post-traumatic stress disorder, unspecified Plan Presents with history of bipolar disorder and PTSD and significant psychosocial stressors and with that context based suicidal and homicidal thoughts. Will check Depakote level in the morning plus or minus adjust dosing. Otherwise no med changes. Time to settle in milieu, engage in groups. 11/07/2024: Depakote level 66. Will increase dose from 500 mg twice daily to 750 mg twice daily 11/08: continue current tx plan. Time Spent With Patient Time: Total time managing care of this patient today ____ minutes.
[2024-11-18 20:00] VITALS: BP 152/84; PULSE 98; TEMP 36.8; O2SAT 97
[2024-11-18 21:27] VITALS: BP 152/84
[2024-11-18] MEDS: Prazosin HCL 1 MG, Prazosin HCL 5 MG 6 MG PO (21:27)
[2024-11-18] MEDS: traZODone HCL 100 MG TABLET PO (21:29)
[2024-11-18] MEDS: OLANZapine 10 MG TABLET 20 MG PO (21:30)
[2024-11-19 08:00] VITALS: BP 137/64; PULSE 95; RESP 18; TEMP 36.2; O2SAT 100
[2024-11-19] MEDS: Divalproex Sodium Sprinkles 125 MG CAP.DR.SPR 625 MG PO (09:32)
[2024-11-19] MEDS: Benztropine Mesylate 0.5 MG TABLET PO (09:33)
[2024-11-19] MEDS: Cholecalciferol (Vitamin D3) 25 MCG TABLET 50 MCG PO (09:34)
[2024-11-19] MEDS: Omeprazole 20 MG CAPSULE.DR PO (09:36)
--- NOTE | 2024-11-19 10:03 | P.DS_ITS ---
DS: Providers Provider Date of admission: 11/05/24 19:56 Primary care physician: Bryan Joseph MD DS: Diagnosis Discharge Diagnosis (1) Bipolar depression: Status: Acute (2) PTSD (post-traumatic stress disorder): Status: Acute DS: Medications Discharge Medications Home Medications: Previous Rx's ?Medication ?Instructions ?Recorded Act Dry Mouth Gum 1 piece of gum PO TID PRN ##0 11/19/24 benztropine 0.5 mg tablet 0.5 mg PO BID #60 tabs 11/19/24 cholecalciferol (vitamin D3) 25 50 mcg (2 x 25 mcg (1,000 unit)) 11/19/24 mcg (1,000 unit) tablet PO DAILY #30 tabs divalproex 125 mg capsule,delayed 625 mg (5 x 125 mg) PO BID #300 11/19/24 release sprinkle caps hydroxyzine HCl 25 mg tablet 25 mg PO BID PRN Anxiety #60 tabs 11/19/24 olanzapine 10 mg tablet 20 mg (2 x 10 mg) PO BEDTIME #30 11/19/24 tabs olanzapine 2.5 mg tablet 2.5 mg PO BID PRN Anxiety or 11/19/24 Agitation #60 tabs omeprazole 20 mg capsule,delayed 20 mg PO 0900 #30 caps 11/19/24 release prazosin 2 mg capsule 6 mg (3 x 2 mg) PO BEDTIME #90 caps 11/19/24 sodium chloride 0.65 % nasal spray 1 spray intranasal Q1H PRN 11/19/24 aerosol ([place] Nasal) Congestion #89 mL trazodone 100 mg tablet 100 mg PO BEDTIME #30 tabs 11/19/24 xylitol-yerba mulugeta mucosal spray 1 spray mucous membrane Q2H PRN 11/19/24 with pump ([employer] [place]) Dry Mouth #45 mL Data Data Completed and Pending Completed studies during hospitalization [Text1]: 11/16/24 08:23 Valproic Acid 64.8 DS: Summary Time Spent with Patient Time attestation: Total time managing care of this patient today ____ minutes. Discharge Plan Discharge Anticipated Discharge Date/Time: 11/19/24 12:00 Patient Disposition: Home, Self-Care Discharge Diagnosis: PTSD Bipolar Disorder, Depressed Referrals: [facility] Visiting RN [Other] - 1 Week (fax- [phone] Visiting RN to restart at D/C. ) Psych Prescriber: Sierra Lazcano ([facility]) [Other] - 12/13/24 11:30 am (Video/Telehealth ) Bryan Joseph MD [Primary Care Provider] - 1 Week Discharge Medications: New benztropine 0.5 mg Tablet 0.5 mg PO BID Qty: 60 0RF olanzapine 10 mg Tablet 20 mg PO BEDTIME Qty: 30 0RF olanzapine 2.5 mg Tablet 2.5 mg PO BID PRN (Reason: Anxiety or Agitation) Qty: 60 0RF trazodone 100 mg Tablet 100 mg PO BEDTIME Qty: 30 0RF hydroxyzine HCl 25 mg Tablet 25 mg PO BID PRN (Reason: Anxiety) Qty: 60 0RF divalproex 125 mg Capsule, Delayed Rel Sprinkle 625 mg PO BID Qty: 300 0RF prazosin 2 mg Capsule 6 mg PO BEDTIME Qty: 90 0RF [place] Nasal 0.65 % Aerosol,[place] 1 spray intranasal Q1H PRN (Reason: Congestion) Qty: 89 0RF Act Dry Mouth G 1 piece of gum PO TID PRNQty: 0 0RF omeprazole 20 mg Capsule,Delayed Release(Dr/Ec) 20 mg PO 0900 Qty: 30 0RF cholecalciferol (vitamin D3) 25 mcg (1,000 unit) Tablet 50 mcg PO DAILY Qty: 30 0RF [employer] [place] With Pump 1 spray mucous membrane Q2H PRN (Reason: Dry Mouth) Qty: 45 0RF Discontinued cholecalciferol (vitamin D3) 50 mcg (2,000 unit) capsule 50 mcg PO DAILY Qty: 90 7RF omeprazole 20 mg capsule,delayed release(DR/EC) 20 mg PO DAILY 30 Days Qty: 30 0RF benztropine 0.5 mg tablet 0.5 mg PO BID prazosin 5 mg capsule 5 mg PO BEDTIME Qty: 7 0RF divalproex [Depakote] 500 mg tablet,delayed release (DR/EC) 500 mg PO BID Qty: 14 0RF olanzapine 15 mg tablet 15 mg PO BEDTIME Qty: 7 0RF olanzapine [Zyprexa] 2.5 mg tablet 2.5 mg PO BID PRN (Reason: Anxiety or Agitation) hydroxyzine HCl 25 mg tablet 25 mg PO BID PRN (Reason: Anxiety) Discharge Orders: Discharge Order (Routine); Ordered 11/19/24 Ordered By: Ene Velasquez Diet: Advance to usual diet Activity on Discharge: As tolerated Stand Alone Forms: Patient Portal Discharge page Print Language: Swedish Care Plan Goals: Mood and Behavioral Stabilization Health Concerns: Mood and Behavioral Stabilization Plan of Treatment: Take medications as directed Attend scheduled appointments Continue to work with housing to make the changes you have identified Assessment: No SI,HI, AH,VH No sx of acute asa or psychosis Pt is in agreement with plan.
[2024-11-19] MEDS: Acetaminophen 325 MG TABLET 650 MG PO (10:12)
== END 2024-11-19 11:00 | disposition home or self-care (01) | DRG 885 ==
LOC: HO.ED 16:22 → HO.PM5 20:05
PROVIDERS: Physician Assistant Medical; Psychiatry & Neurology Psychiatry; Admitting Provider Social Worker; Emergency Provider Emergency Medicine; PCP Internal Medicine; Visit Provider Clinical Nurse Specialist Psychiatric/Mental Health, Adult
DX: F31.9 Bipolar disorder, unspecified (principal); R45.851 Suicidal ideations; R45.850 Homicidal ideations; F43.10 Post-traumatic stress disorder, unspecified; Z79.899 Other long term (current) drug therapy
CPT/HCPCS: 36415; 80053; 80164; 80307; 81003; 83036; 85025; 99285

== ENCOUNTER → 2024-11-05 19:56 | Outpatient (BNV) | payer OTHER, SELFPAY | PROVIDERS: Admitting Provider Social Worker; Emergency Provider Emergency Medicine; PCP Internal Medicine; Visit Provider Psychiatry & Neurology Psychiatry | DX: F31.9 Bipolar disorder, unspecified (principal); F43.10 Post-traumatic stress disorder, unspecified | CPT/HCPCS: 90792; 99232 ==

== ENCOUNTER → 2024-12-03 11:22 | Outpatient (BNVA) | payer OTHER, SELFPAY | PROVIDERS: PCP Internal Medicine | DX: M53.3 Sacrococcygeal disorders, not elsewhere classified (principal); K29.60 Other gastritis without bleeding; K21.00 Gastro-esophageal reflux disease with esophagitis, without bleeding; J45.20 Mild intermittent asthma, uncomplicated; R09.81 Nasal congestion; H04.123 Dry eye syndrome of bilateral lacrimal glands; H60.93 Unspecified otitis externa, bilateral; G47.00 Insomnia, unspecified; F43.10 Post-traumatic stress disorder, unspecified; F31.9 Bipolar disorder, unspecified; F41.9 Anxiety disorder, unspecified | CPT/HCPCS: 96127; 99212 ==

== ENCOUNTER 2024-12-13 14:43 | Outpatient (REF) | payer OTHER, SELFPAY ==
--- NOTE | ~2024-12-13 | XR_ITS ---
EXAMINATION: XR SACROILIAC JOINTS CLINICAL INFORMATION: M53.3 - Sacrococcygeal disorders, not elsewhere classified COMPARISON: None available. TECHNIQUE: 3 views of the sacroiliac joints FINDINGS: Sacrum is intact without fracture. No focal bone lesions. There is a articular sclerosis involving both SI joints, right greater than left, with a suggestion of subtle erosions especially on the right. Suspect inflammatory arthropathy. The remainder the bony and soft tissue structures appear normal. 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 Electronically signed by: Kyle Leija MD 12/13/2024 04:17 PM [facility]
--- OUTSIDE RECORDS SUMMARY | 2024-12-13 16:00 | XMS_ITS ---
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 Generated for Denise knox/Bernabe/eTransmitting on:?12/13/2024 04:00 PM EST
--- OUTSIDE RECORDS SUMMARY | 2024-12-13 16:00 | XMS_ITS ---
Author Organization 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 Generated for Denise knox/Bernabe/eTransmitting on:?12/13/2024 04:00 PM EST
--- OUTSIDE RECORDS SUMMARY | 2024-12-13 16:00 | XMS_ITS | Patient Health Record ---
Author Organization [facility] MD Address [address] [place] [address] Care Team Providers Care Customer Service Clerk Name Role Phone COURTNEY BILLY Primary Care Provider [phone] Reason For Referral No Information Medications Medication SIG (Take, Route, Frequency, Duration) Notes Start Date End Date Status OXcarbazepine Active EpiPen 2-Jerel 0.3 MG/0.3ML as directed In jection prn for 30 days 12/28/2020 Active Keppra 750 MG 1 tablet am and 2 at night Orally Active Abilify Active Problems Problem Type SNOMED Code ICD Code Onset Dates Problem Status W/U Status Risk Notes Problem Anxiety disorder ([id number]) Anxiety disorder, unspecified (F41.9) Active confirmed Plan Of Treatment Pending Test Test Name Order Date Hemoglobin A1c 10/12/2020 Urinalysis, Routine 10/12/2020 CBC With Differential/Platelet 0 Comp. Metabolic Panel (12) 10/12/2020 TSH reflex to T4F 10/12/2020 PHYSICAL THERAPY 12/28/2020 XR ANKLE 2 VW LEFT 10/17/2020 XR ANKLE 2 VW LEFT 10/12/2020 Insurance Providers Payer Name Payer Address Payer Phone Subscriber Number Group Number Insured Name Patient Relationship to Insured Coverage Start Date Coverage End Date [facility] CLAIM[facility] DEPART [address] [address] [place] [address] [id number] Zaire Edilma Self - patient is the insured 0 Medical (General) History Medical History History ICD Code seizure disorder bipolar disorder Surgical History Surgery Date(Month/Year)
--- OUTSIDE RECORDS SUMMARY | 2024-12-13 16:01 | XMS_ITS ---
Author Organization [facility] Address [address], [place] [id number] Care Team Providers Care Marketing Automation Analyst Name Role Phone Dr Bryan Joseph Primary Care Provider Hamilton Encarnacion Unavailable [phone] Encounters Encounter Location Date Provider Diagnosis [facility] [address] [place] [phone] 10/15/2023 Hamilton Pandya Plan Of Treatment No Information Progress Notes * Elva MERCADOOB: 5 (28 yo M)Acc No.[id number]:10/15/2023 Patient:?Edilma Mercado :1995???Age:28 Y???Sex:Male Address:[address] [place] [address] et [address], [place], [address] * true * Date:? Generated for Denise knox/Bernabe/eTransmitting on:?12/13/2024 04:00 PM EST
[2024-12-14 04:23] LABS: Syphilis Screen Nonreactive (Nonreactive)
[2024-12-14 04:32] LABS: HIV AB/AG Nonreactive (Nonreactive); HIV Num 1 0.07 S/CO (0.00-0.99)
== END 2024-12-13 14:44 | disposition home or self-care (01) ==
LOC: HO.XRAY 14:43
PROVIDERS: PCP Internal Medicine
DX: Z11.3 Encounter for screening for infections with a predominantly sexual mode of transmission (principal); M53.3 Sacrococcygeal disorders, not elsewhere classified
CPT/HCPCS: 36415; 72202; 86780; 87389

== ENCOUNTER → 2024-12-13 15:23 | Outpatient (BNV) | payer OTHER, SELFPAY | PROVIDERS: PCP Internal Medicine; Visit Provider Radiology Diagnostic Radiology | DX: M53.3 Sacrococcygeal disorders, not elsewhere classified (principal) | CPT/HCPCS: 72202 ==

== ENCOUNTER 2025-01-20 10:07 | Outpatient (AMB) | payer OTHER, SELFPAY ==
[2025-01-20 10:12] VITALS: BP 126/78; PULSE 98; RESP 18; TEMP 36.4; O2SAT 98; BMI 24.8
--- NOTE | 2025-01-20 10:12 | MHC.PC.OV ---
Vital Signs 01/20/25 10:12 Height 6 ft Weight 183 lb 3.2 oz BMI 24.8 BP 126/78 Blood Pressure Location Lt brachial Position Sitting Respiration 18 Pulse 98 Pulse Source Pulse Oximeter Temp 97.6 F Temp Source Oral Pulse Oximetry (%) 98 Oxygen Delivery Method Room Air Intake Visit Reasons: pe News Commentator Required: No Accompanied by: Self / Same As Patient Allergies amphetamine [From Adderall] Allergy (Severe, Verified 01/31/25 09:05) Anaphylaxis dextroamphetamine [From Adderall] Allergy (Severe, Verified 01/31/25 09:05) Anaphylaxis seafood Allergy (Severe, Verified 01/31/25 09:05) Anaphylaxis chlorine bleach in water Adverse Reaction (Intermediate, Uncoded 01/31/25 09:05) rash Tobacco use date assessed: 01/20/25 Dental Screening Dental Screen Date: 01/20/25 Did you have a dental visit in the last 12 months?: Yes Did you have a dental problem in the last 6 months where you did not have access to dental care?: No Was dental information given to patient?: Patient has dentist HPI pe HPI Details Dentist: up to date Eye: no-reports having an appt with February 01 with [facility]: Right: Left: Corrected vision: reports that he used to wear glasses STI screening: ordered on previous visit Colonoscopy:n/a Pap Smer:n/a PHQ-9: Flu: no-decline COVID: x3 Tdap: reports getting this in 2019 Diet: regular Exercise: push up, sit ups, and pull ups intermittently Reports intermittent sob better with inhaler Patient is presenting for an annual physical Reports that he was in the hospital at [place] for Depression after finding out that his girlfriend betrayed him The patient is also requesting that ensures are ordered for him Also reports that he got stuck in a train door and he will be bringing up a case against the water trainer . [facility] Medical History Sickle cell trait Overweight (BMI 25.0-29.9) Vitamin D deficiency Allergic rhinitis Anxiety Bipolar depression Asthma Surgical History History of ankle surgery (~05/09/19) Family History Mother Mental health disorder Social History Household Members: None Housing: Apartment Do you presently have visiting nurse or other home services: No Alcohol intake: current Patient Tobacco Use Status: Never used Tobacco e-Cigarette/Vaping Use: Never Used Second Hand Smoke Exposure: No Substance Use Type: Marijuana service: No Current occupational status: unemployed and disabled Sexual orientation: Straight/Heterosexual Cognitive needs: Yes Hearing needs: No Vision needs: No Questionnaire PHQ-9 Over the last 2 weeks, how often have you been bothered by any of the following problems? 1. Little interest or pleasure in doing things: several days 2. Feeling down, depressed, or hopeless: several days 3. Trouble falling or staying asleep, or sleeping too much: nearly every day 4. Feeling tired or having little energy: more than half the days 5. Poor appetite or overeating: more than half the days 6. Feeling bad about yourself - or that you are a failure or have let yourself or your family down: several days 7. Trouble concentrating on things, such as reading the newspaper or watching television: more than half the days 8. Moving or speaking so slowly that other people could have noticed. Or the opposite - being so fidgety or restless that you have been moving around a lot more than usual: not at all 9. Thoughts that you would be better off or of hurting yourself in some way: not at all Total score: 12 Depression Screening Interpretation: Positive Depression Screening Done: Yes 02454 - PHQ-9 Billing: Yes Source: Developed by Drs. Desean Benjamin, Jade Sanders, Blade Mccabe and colleagues, with an educational axel from [employer]. Thrive Questionnaire Date Thrive assessed: 01/20/25 I am a: Patient What is your living situation today?: I have a steady place to live Within the past 12 months, did the food you bought not last and you didn't have the money to get more?: Often true Within the past 12 months, did you worry whether your food would run out before you got money to buy more?: Often true Do you have trouble paying for medicines?: No Do you have trouble getting transportation to medical appointments?: No Do you have trouble paying your heating and electricity bill?: Yes Do you have trouble taking care of your child, family member or friend?: No Do you have trouble with day-to-day activities such as bathing, preparing meals, shopping, managing finances, etc.?: No Are you currently unemployed and looking for a job?: No Are you interested in more education?: Yes Please select the resources that you would like help with: Housing/Senior Living, Food, Utilities, Job search/training and Education Currently or been in a relationship where the following occur: No concerns reported THRIVE Score: 3 AUDIT C Alcohol Use Questionnaire (AUDIT-C) 1. How often do you have a drink containing alcohol?: Never Total Score: 0 KELSI-7 AMB Questionnaire KELSI-7 Date KELSI - 7 assessed: 01/20/25 Feeling nervous, anxious, or on edge: 2 = More than half the days Not being able to stop or control worryin = More than half the days Worrying too much about different things: 2 = More than half the days Trouble relaxin = More than half the days Being so restless that it is hard to sit still: 2 = More than half the days Becoming easily annoyed or irritable: 2 = More than half the days Feeling afraid as if something awful might happen: 1 = Several days Total KELSI-7 score (0-4 normal; 5-9 mild; 10-14 moderate; 15-21 severe): 13 Source: Developed by Drs. Desean Benjamin, Jade Sanders, Blade Mccabe and colleagues, with an educational axel from [employer]. KELSI-7 Assessment Billing KELSI-7 Assessment Tool: KELSI-7 Assessment 23654 Review of Systems Const Denies headache(s) Eyes Denies loss of vision ENT Denies vertigo, Denies dizziness, Denies headache(s) and Denies sore throat Card Denies chest pain, Denies leg edema and Denies lightheadedness Resp Denies cough, Denies hemoptysis and Denies wheezing GI Denies abdominal pain, Denies melena, Denies constipation, Denies diarrhea and Denies vomiting Denies dysuria, Denies urinary frequency and Denies urinary urgency Musc Denies arthralgias, Denies joint swelling, Denies numbness and Denies tingling Neuro Denies Abnormal speech present, Denies behavioral changes, Denies vertigo, Denies dizziness, Denies headache(s), Denies loss of vision, Denies memory loss, Denies numbness and Denies tingling Psych Reports anxiety, Denies behavioral changes, Reports depression, Denies memory loss, Denies panic attacks, Denies homicidal ideation and Denies suicidal ideation Patrick/Lymph Denies easy bleeding and Denies easy bruising Aller/Immun Denies wheezing Physical exam (Primary Care) Vital Signs: Last Vital Signs Temp 97.6 F 01/20/25 10:12 Pulse 98 01/20/25 10:12 Resp 18 01/20/25 10:12 BP 126/78 01/20/25 10:12 Pulse Ox 98 01/20/25 10:12 Oxygen Delivery Method Room Air 01/20/25 10:12 BMI result Body Mass Index 24.8 Tobacco/Smoking Status: Tobacco use Status Tobacco use date assessed 01/20/25 01/20/25 10:23 Patient Tobacco Use Status Never used Tobacco 01/20/25 10:23 Tobacco use type 03/04/24 12:58 e-Cigarette/Vaping Use Never Used 01/20/25 10:23 PHQ-9: PHQ-9 Score PHQ-9: Total score 12 01/20/25 10:31 Depression Screening Interpretation: Positive Thrive Assessment: Date of Thrive Assessment Date Thrive assessed 01/20/25 01/20/25 10:23 Currently or been in a relationship where the following occur: No concerns reported Const General: healthy appearing, no acute distress, alert and awake Nutritional Appearance: well nourished Orientation/consciousness: oriented to person, oriented to place and oriented to time HENMT Ears: TM's normal bilaterally General nose exam: Normal nasal mucous membranes and turbinates present Eyes Conjunctivae: conjunctivae normal Sclerae: sclerae normal Pupils: Equal, round and reactive pupils present Neck Neck: Yes no lymphadenopathy and Yes no JVD Thyroid: Thyroid normal Carotids: no bruits Resp Effort & Inspection: normal respiratory effort and not tachypneic Auscultation: no crackles, no rales, no rhonchi and no wheezes Cardio Rate: regular rate Rhythm: regular rhythm Heart sounds: no murmurs and normal S1 and S2 GI Palpation (GI): Soft to palpation, nontender, no hepatomegaly and no splenomegaly Auscultation: normal bowel sounds Skin General skin exam: no rashes or lesions noted and dry skin Neuro General: oriented to person, oriented to place and oriented to time Cranial nerves: Yes Equal, round and reactive pupils present Speech: No Abnormal speech present Gait exam (Neuro): Normal gait present Motor exam (neuro): no tremor noted Extrem Right upper extremity: full ROM Left upper extremity: full ROM Right lower extremity: full ROM; no edema Left lower extremity: full ROM; no edema Psych Mental Status: mental status grossly normal Speech and movement: Normal speech and movement present Affect: normal affect Attitude: cooperative Thought process: Normal thought process present Results Reviewed Results Reviewed: Laboratory Tests 11/05/24 11/07/24 15:21 09:29 WBC 3.8 L RBC 4.62 Hgb 14.2 Hct 40.6 L MCV 87.9 Plt Count 231 Sodium 142 Potassium 3.9 Chloride 107 BUN 14 Creatinine 0.87 Estimated GFR > 60 Estimat Average Glucose 103 Hemoglobin A1c % 5.2 Total Bilirubin 0.5 AST 20 ALT 12 Alkaline Phosphatase 62 Total Protein 7.8 Albumin 4.5 Urine Color Yellow Urine Appearance Clear Urine pH 5.5 Ur Specific [place] 1.015 Urine Protein Negative Urine Glucose (UA) Negative Urine Ketones Negative Urine Blood Negative Urine Nitrite Negative Ur Leukocyte Esterase Negative Coding Level of Care Code Est Pt Prev Care 18-39y([id number]) Diagnoses Annual physical exam Z00.00 Sclerosis of sacroiliac joint M53.3 Erosive gastritis K29.60 Mild intermittent asthma without complication J45.20 Asthma severity: mild Asthma persistence: intermittent Asthma complication type: uncomplicated Nasal congestion R09.81 Dry eyes H04.123 Eye exam, routine Z01.00 Screen for STD (sexually transmitted disease) Z11.3 Insomnia, unspecified type G47.00 Insomnia type: unspecified PTSD (post-traumatic stress disorder) F43.10 Anxiety F41.9 Bipolar depression F31.9 Unintentional weight loss R63.4 Additional Codes KELSI-7 Assessment Billing - KELSI-7 Assessment Tool: KELSI-7 Assessment 01033 ([id number]) PHQ-9 - 65947 - PHQ-9 Billing: Yes ([id number]) Time Spent (min) 38 Assessment & Plan Assessment & Plan (1) Annual physical exam: Code(s): Z00.00 - Encounter for general adult medical examination without abnormal findings Category: Medical Plan: Preventative guidelines were reviewed with the patient. No recent labs were completed the patient was urged to get these done as soon as possible. (2) Sclerosis of sacroiliac joint: Code(s): M53.3 - Sacrococcygeal disorders, not elsewhere classified Category: Medical Plan: Upper GI series done on 08/13/2024: Shows sclerosis surrounding the SI joints. 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 The patient denies pain at this visit-will continue to monitor (3) Erosive gastritis: Code(s): K29.60 - Other gastritis without bleeding Category: Medical Plan: Upper GI series: Had concerns of esophagitis, severe gastroesophageal reflux, and erosive gastritis. A GI referral was placed on previous visit; he has not been contacted as yet per patient - will likely need EGD Continue Omeprazole 20 mg QD . (4) Asthma: Code(s): J45.909 - Unspecified asthma, uncomplicated Category: Medical Qualifiers: Asthma severity: mild Asthma persistence: intermittent Asthma complication type: uncomplicated Qualified Code(s): J45.20 - Mild intermittent asthma, uncomplicated Plan: Reports that his asthma is well-controlled but sometime the dry air makes it harder for him to breathe Humidifier ordered on his previous visit (5) Nasal congestion: Code(s): R09.81 - Nasal congestion Category: Medical Plan: Fluticasone propionate 50 mcg/actuation nose spray ordered (6) Dry eyes: Code(s): H04.123 - Dry eye syndrome of bilateral lacrimal glands Category: Medical Plan: Ketotifen fumarate eyedrops b.i.d. ordered (7) Eye exam, routine: Code(s): Z01.00 - Encounter for examination of eyes and vision without abnormal findings Category: Medical Plan: Patient reports that he would like to get his eyes checked because his dad was diagnosed with glaucoma An an optometry referral placed on his previous visit (8) Screen for STD (sexually transmitted disease): Code(s): Z11.3 - Encounter for screening for infections with a predominantly sexual mode of transmission Category: Medical Plan: STD panel ordered per patient request on his previous visit. The patient has not completed his labs has yet (9) Insomnia: Code(s): G47.00 - Insomnia, unspecified Category: Medical Qualifiers: Insomnia type: unspecified Qualified Code(s): G47.00 - Insomnia, unspecified Plan: Reinforced sleep hygiene Continue trazodone 100 mg at bedtime (10) PTSD (post-traumatic stress disorder): Code(s): F43.10 - Post-traumatic stress disorder, unspecified Category: Medical Plan: Continue prazosin 6 mg at bedtime, hydroxyzine 25 mg b.i.d. p.r.n. (11) Anxiety: Code(s): F41.9 - Anxiety disorder, unspecified Category: Medical Plan: Continues Hydroxyzine 25 mg b.i.d. p.r.n. Denies SI/HI (12) Bipolar depression: Code(s): F31.9 - Bipolar disorder, unspecified Category: Medical Plan: Continue divalproex 625 mg b.i.d., benztropine 0.5 mg b.i.d., olanzapine 2.5 mg b.i.d. p.r.n. and olanzapine 20 mg at bedtime Denies SI/HI Follow up with Psychiatry as scheduled (13) Unintentional weight loss: Code(s): R63.4 - Abnormal weight loss Category: Medical Plan: Patient request for ensure to be ordered. Per patient he thinks that he is losing weight, in attempt to order ensure for the patient; it was noted that the patient would have a below normal BMI. And because the patient has a normal BMI at this time the insurance will not cover this. We will inform the patient of this information. Plan The patient to return in 6 months Orders: Orders TSH reflex Free T4 6 Months G47.00 - Insomnia, unspecified, R09.81 - Nasal congestion, K21.00 - Gastro-esophageal reflux disease with esophagitis, without bleeding, R10.13 - Epigastric pain, F43.10 - Post-traumatic stress disorder, unspecified, G43.909 - Migraine, unspecified, not intractable, without status migrainosus, E55.9 - Vitamin D deficiency, unspecified, J45.20 - Mild intermittent asthma, uncomplicated UA CC w/rflx Micro + Cult 6 Months G47.00 - Insomnia, unspecified, R09.81 - Nasal congestion, K21.00 - Gastro-esophageal reflux disease with esophagitis, without bleeding, R10.13 - Epigastric pain, F43.10 - Post-traumatic stress disorder, unspecified, G43.909 - Migraine, unspecified, not intractable, without status migrainosus, E55.9 - Vitamin D deficiency, unspecified, J45.20 - Mild intermittent asthma, uncomplicated Vitamin D 25-OH Total 6 Months G47.00 - Insomnia, unspecified, R09.81 - Nasal congestion, K21.00 - Gastro-esophageal reflux disease with esophagitis, without bleeding, R10.13 - Epigastric pain, F43.10 - Post-traumatic stress disorder, unspecified, G43.909 - Migraine, unspecified, not intractable, without status migrainosus, E55.9 - Vitamin D deficiency, unspecified, J45.20 - Mild intermittent asthma, uncomplicated Glucose Fasting 6 Months G47.00 - Insomnia, unspecified, R09.81 - Nasal congestion, K21.00 - Gastro-esophageal reflux disease with esophagitis, without bleeding, R10.13 - Epigastric pain, F43.10 - Post-traumatic stress disorder, unspecified, G43.909 - Migraine, unspecified, not intractable, without status migrainosus, E55.9 - Vitamin D deficiency, unspecified, J45.20 - Mild intermittent asthma, uncomplicated Complete Blood Count Auto Diff 6 Months G47.00 - Insomnia, unspecified, R09.81 - Nasal congestion, K21.00 - Gastro-esophageal reflux disease with esophagitis, without bleeding, R10.13 - Epigastric pain, F43.10 - Post-traumatic stress disorder, unspecified, G43.909 - Migraine, unspecified, not intractable, without status migrainosus, E55.9 - Vitamin D deficiency, unspecified, J45.20 - Mild intermittent asthma, uncomplicated Comprehensive [place]. Panel Fast 6 Months G47.00 - Insomnia, unspecified, R09.81 - Nasal congestion, K21.00 - Gastro-esophageal reflux disease with esophagitis, without bleeding, R10.13 - Epigastric pain, F43.10 - Post-traumatic stress disorder, unspecified, G43.909 - Migraine, unspecified, not intractable, without status migrainosus, E55.9 - Vitamin D deficiency, unspecified, J45.20 - Mild intermittent asthma, uncomplicated Lipid Panel 6 Months G47.00 - Insomnia, unspecified, R09.81 - Nasal congestion, K21.00 - Gastro-esophageal reflux disease with esophagitis, without bleeding, R10.13 - Epigastric pain, F43.10 - Post-traumatic stress disorder, unspecified, G43.909 - Migraine, unspecified, not intractable, without status migrainosus, E55.9 - Vitamin D deficiency, unspecified, J45.20 - Mild intermittent asthma, uncomplicated Medications: New fluticasone furoate-vilanterol 100-25 mcg/dose (Breo Ellipta) 1 inh inhalation DAILY 60 ea 0RF J45.20 - Mild intermittent asthma, uncomplicated amoxicillin-pot clavulanate 875-125 mg 1 tab PO BID 20 tabs 0RF 10 days H66.90 - Otitis media, unspecified, unspecified ear Changed From albuterol sulfate 90 mcg/actuation 2 puffs inhalation Q6H PRN J45.20 - Mild intermittent asthma, uncomplicated To albuterol sulfate 90 mcg/actuation 2 puffs inhalation Q6H PRN 8.5 grams 2RF shortness of breath or wheezing J45.20 - Mild intermittent asthma, uncomplicated
== END 2025-01-20 11:14 | disposition home or self-care (01) ==
LOC: HO.HMCH 10:08
PROVIDERS: PCP Internal Medicine
DX: Z00.00 Encounter for general adult medical examination without abnormal findings (principal); M53.3 Sacrococcygeal disorders, not elsewhere classified; K29.60 Other gastritis without bleeding; J45.20 Mild intermittent asthma, uncomplicated; R09.81 Nasal congestion; H04.123 Dry eye syndrome of bilateral lacrimal glands; Z01.00 Encounter for examination of eyes and vision without abnormal findings; Z11.3 Encounter for screening for infections with a predominantly sexual mode of transmission; G47.00 Insomnia, unspecified; F43.10 Post-traumatic stress disorder, unspecified; F41.9 Anxiety disorder, unspecified; F31.9 Bipolar disorder, unspecified; R63.4 Abnormal weight loss

== ENCOUNTER → 2025-01-20 10:07 | Outpatient (BNVA) | payer OTHER, SELFPAY | PROVIDERS: PCP Internal Medicine | DX: Z00.00 Encounter for general adult medical examination without abnormal findings (principal); M53.3 Sacrococcygeal disorders, not elsewhere classified; J45.20 Mild intermittent asthma, uncomplicated; R09.81 Nasal congestion; H04.123 Dry eye syndrome of bilateral lacrimal glands; G47.00 Insomnia, unspecified; F43.10 Post-traumatic stress disorder, unspecified; F41.9 Anxiety disorder, unspecified; R63.4 Abnormal weight loss; F31.9 Bipolar disorder, unspecified | CPT/HCPCS: 96127 ==

== ENCOUNTER 2025-06-16 14:59 | Outpatient (AMB) | payer OTHER, SELFPAY ==
[2025-06-16 15:07] VITALS: BP 156/74; PULSE 62; O2SAT 98; BMI 24.4
--- NOTE | 2025-06-16 15:07 | MHC.PC.OV ---
Vital Signs 06/16/25 15:07 Height 6 ft Weight 180 lb BMI 24.4 BP 156/74 H Blood Pressure Location Lt brachial Position Sitting Pulse 62 Pulse Source Pulse Oximeter Pulse Oximetry (%) 98 Oxygen Delivery Method Room Air Intake Visit Reasons: [facility] 06/07/25 Earth Observations Chief Scientist Required: No Accompanied by: Self / Same As Patient Allergies amphetamine (From Adderall) Allergy (Severe, Verified 06/16/25 15:45) Anaphylaxis dextroamphetamine (From Adderall) Allergy (Severe, Verified 06/16/25 15:45) Anaphylaxis seafood Allergy (Severe, Verified 06/16/25 15:45) Anaphylaxis chlorine bleach in water Adverse Reaction (Intermediate, Uncoded 06/16/25 15:45) rash Medication List - Last Reconciled 06/16/25 by Bryan Joseph MD [Act Dry Mouth G 1 piece of gum PO TID PRN] albuterol sulfate 90 mcg/actuation 2 puffs inhalation Q6H PRN benztropine 0.5 mg PO BID cholecalciferol (vitamin D3) 50 mcg (2 x 25 mcg (1,000 unit)) PO DAILY divalproex 500 mg PO BID fluticasone furoate-vilanterol 100-25 mcg/dose (Breo Ellipta) 1 inh inhalation DAILY fluticasone propionate 50 mcg/actuation (Flonase Allergy Relief) 1 spray intranasal DAILY food supplemt, lactose-reduced (Ensure Original) 1 ea PO TIDWMEAL [humidifier As directed] hydroxyzine HCl 25 mg PO BID PRN ketotifen fumarate 0.025%(0.035%) 1 drp ophthalmic (eye) BID olanzapine 2.5 mg PO BID PRN olanzapine 5 mg PO BEDTIME omeprazole 20 mg PO 0900 prazosin 6 mg (3 x 2 mg) PO BEDTIME sodium chloride 0.65% (Deep Sea Nasal) 1 spray intranasal Q1H PRN trazodone 100 mg PO BEDTIME xylitol-yerba mulugeta ([place]) 1 spray mucous membrane Q2H PRN Tobacco use date assessed: 06/16/25 Dental Screening Dental Screen Date: 06/16/25 Did you have a dental visit in the last 12 months?: Yes Did you have a dental problem in the last 6 months where you did not have access to dental care?: No Was dental information given to patient?: Patient has dentist HPI hdf [facility] 06/07/25 HPI Details Patient comes in today for his HDF follow up visit He was admitted to the psychiatry unit at [facility] for about a week from 06/01/2025 to 06/07/2025 for psychiatric decompensation, including symptoms of suicidal ideation, aggression and hallucinations Patient states that he's had his medications changed/adjusted while he was admitted into the hospital and he is now again doing much better He has a follow up appointment coming up with his psychiatrist in a few days on 06/20/2025 Adds that he has a hernia presently over his right inguinal area and is scheduled to be seen by surgery in a couple of weeks on 06/30/2025 States that he still has some lingering pain in his right foot from a fracture of the foot that he sustained a couple of months ago back in late March 2025 He was seen by ESTHELA verdugo and was advised that he does not require any surgical intervention at the time He denies any headaches or dizziness Denies any exertional chest pains, no increased SOB No nausea/vomiting, no abdominal pain No change in bowel habits noted Needs his Loratadine Rx refilled [facility] Medical History (Updated 06/18/25 @ 16:59 by Bryan Joseph MD) Right inguinal hernia GERD without esophagitis Sickle cell trait Overweight (BMI 25.0-29.9) Vitamin D deficiency Allergic rhinitis Anxiety Bipolar depression Asthma Surgical History History of ankle surgery (~05/09/19) Family History Mother Mental health disorder Social History Household Members: None Housing: Apartment Do you presently have visiting nurse or other home services: No Alcohol intake: current Patient Tobacco Use Status: Never used Tobacco e-Cigarette/Vaping Use: Never Used Second Hand Smoke Exposure: No Substance Use Type: Marijuana service: No Current occupational status: unemployed and disabled Sexual orientation: Straight/Heterosexual Cognitive needs: Yes Hearing needs: No Vision needs: No Questionnaire PHQ-9 Over the last 2 weeks, how often have you been bothered by any of the following problems? 1. Little interest or pleasure in doing things: several days 2. Feeling down, depressed, or hopeless: several days 3. Trouble falling or staying asleep, or sleeping too much: nearly every day 4. Feeling tired or having little energy: more than half the days 5. Poor appetite or overeating: more than half the days 6. Feeling bad about yourself - or that you are a failure or have let yourself or your family down: several days 7. Trouble concentrating on things, such as reading the newspaper or watching television: more than half the days 8. Moving or speaking so slowly that other people could have noticed. Or the opposite - being so fidgety or restless that you have been moving around a lot more than usual: not at all 9. Thoughts that you would be better off or of hurting yourself in some way: not at all Total score: 12 Depression Screening Interpretation: Positive Depression Screening Follow-up: Existing condition and In treatment Depression Screening Done: Yes 42575 - PHQ-9 Billing: Yes Source: Developed by Drs. Desean Benjamin, Jade Sanders, Blade Mccabe and colleagues, with an educational axel from [employer] Thrive Questionnaire Date Thrive assessed: 06/16/25 I am a: Patient What is your living situation today?: I have a steady place to live Within the past 12 months, did the food you bought not last and you didn't have the money to get more?: Often true Within the past 12 months, did you worry whether your food would run out before you got money to buy more?: Often true Do you have trouble paying for medicines?: No Do you have trouble getting transportation to medical appointments?: No Do you have trouble paying your heating and electricity bill?: Yes Do you have trouble taking care of your child, family member or friend?: No Do you have trouble with day-to-day activities such as bathing, preparing meals, shopping, managing finances, etc.?: No Are you currently unemployed and looking for a job?: No Are you interested in more education?: Yes Please select the resources that you would like help with: None Currently or been in a relationship where the following occur: No concerns reported THRIVE Score: 3 AUDIT C Alcohol Use Questionnaire (AUDIT-C) 1. How often do you have a drink containing alcohol?: Never 3. How often do you have six or more drinks on one occasion?: Never Total Score: 0 Score Reviewed/Action Taken: Yes KELSI-7 AMB Questionnaire KELSI-7 Date KELSI - 7 assessed: 06/16/25 Feeling nervous, anxious, or on edge: 2 = More than half the days Not being able to stop or control worryin = More than half the days Worrying too much about different things: 2 = More than half the days Trouble relaxin = More than half the days Being so restless that it is hard to sit still: 2 = More than half the days Becoming easily annoyed or irritable: 2 = More than half the days Feeling afraid as if something awful might happen: 1 = Several days Total KELSI-7 score (0-4 normal; 5-9 mild; 10-14 moderate; 15-21 severe): 13 Source: Developed by Drs. Desean Benjamin, Jade Sanders, Blade Mccabe and colleagues, with an educational axel from [employer]. KELSI-7 Assessment Billing KELSI-7 Assessment Tool: KELSI-7 Assessment 65865 Review of Systems Const Denies chills, Denies fatigue, Denies fever(s) and Denies headache(s) (controlled) ENT Denies dysphagia, Denies dizziness, Denies otalgia, Denies headache(s) (controlled), Denies neck pain, Denies odynophagia and Denies sore throat Card Denies chest pain, Denies palpitations and Denies dyspnea Resp Denies chest congestion, Denies cough, Denies dyspnea and Denies wheezing GI Denies abdominal pain (but (+) on and off epigastric discomfort), Denies constipation, Denies dysphagia, Denies heartburn, Denies diarrhea, Denies nausea, Denies odynophagia and Denies vomiting Denies difficulty urinating, Denies dysuria, Denies nocturia and Denies urinary frequency Musc Details: (+) right inguinal hernia; (+) pain in the right foot Denies back pain and Denies neck pain Skin/Breast Denies rash Neuro Denies dizziness and Denies headache(s) (controlled) Psych Reports anxiety (better controlled) and Reports depression (better controlled) Endo Denies fatigue and Denies palpitations Aller/Immun Denies wheezing Physical exam (Primary Care) Vital Signs: Last Vital Signs Pulse 62 06/16/25 15:07 BP 156/74 H 06/16/25 15:07 Pulse Ox 98 06/16/25 15:07 Oxygen Delivery Method Room Air 06/16/25 15:07 BMI result Body Mass Index 24.4 Tobacco/Smoking Status: Tobacco use Status Tobacco use date assessed 06/16/25 06/16/25 15:08 Patient Tobacco Use Status Never used Tobacco 06/16/25 15:08 Tobacco use type 03/04/24 12:58 e-Cigarette/Vaping Use Never Used 06/16/25 15:08 PHQ-9: PHQ-9 Score PHQ-9: Total score 12 06/17/25 09:20 Depression Screening Interpretation: Positive Depression Screening Follow-up: Existing condition and In treatment Thrive Assessment: Date of Thrive Assessment Date Thrive assessed 06/16/25 06/16/25 15:08 Currently or been in a relationship where the following occur: No concerns reported Const General: no acute distress and alert HENMT Ears: TM's normal bilaterally and EAC's normal Throat: Yes posterior oropharynx normal and Yes tonsils normal (no TP congestion) Neck Neck: Yes supple and No lymphadenopathy Thyroid: Thyroid normal Resp Auscultation: clear to auscultation bilaterally, no rales and no wheezes Cardio Rate: regular rate Rhythm: regular rhythm Heart sounds: no murmurs GI Palpation (GI): Soft to palpation, nontender and Hernia present direct inguinal on the right Auscultation: normal bowel sounds General: Yes no CVA tenderness Back/Spine/Pelvis Back: no CVA tenderness Thoracic/Lumbar Spine: No lumbar spinal tenderness Skin Lesions: no lesions Rashes: no rashes Extrem General: Yes no clubbing, cyanosis or edema Coding Level of Care Code Est Pt Level 4 (47028) Diagnoses Mild intermittent asthma without complication J45.20 Asthma severity: mild Asthma persistence: intermittent Asthma complication type: uncomplicated Allergic rhinitis, unspecified seasonality, unspecified trigger J30.9 Allergic rhinitis trigger: unspecified Allergic rhinitis seasonality: unspecified Migraine without status migrainosus, not intractable, unspecified migraine type G43.909 Migraine type: unspecified Status migrainosus presence: without status migrainosus Intractability: not intractable Vitamin D deficiency E55.9 GERD without esophagitis K21.9 Right inguinal hernia K40.90 Closed fracture of right foot, sequela S92.901S Encounter type: sequela Fracture type: closed Insomnia, unspecified type G47.00 Insomnia type: unspecified Anxiety F41.9 Bipolar depression F31.9 Additional Codes KELSI-7 Assessment Billing - KELSI-7 Assessment Tool: KELSI-7 Assessment 50040 ([id number]) PHQ-9 - 24167 - PHQ-9 Billing: Yes ([id number]) Assessment & Plan Assessment & Plan (1) Asthma: Code(s): J45.909 - Unspecified asthma, uncomplicated Category: Medical Qualifiers: Asthma severity: mild Asthma persistence: intermittent Asthma complication type: uncomplicated Qualified Code(s): J45.20 - Mild intermittent asthma, uncomplicated Plan: Controlled currently His PFTs done back in December 2023 showed findings consistent with asthma Continue Breo Ellipta 100-251 mcg 1 inhalation QD and Albuterol HFA 1 to 2 inhalations Q 6 hours PRN (2) Allergic rhinitis: Code(s): J30.9 - Allergic rhinitis, unspecified Category: Medical Qualifiers: Allergic rhinitis trigger: unspecified Allergic rhinitis seasonality: unspecified Qualified Code(s): J30.9 - Allergic rhinitis, unspecified Plan: Continue Loratadine 10 mg QD PRN (Rx refilled) and Fluticasone 50 mcg nasal spray QD PRN (3) Migraine: Code(s): G43.909 - Migraine, unspecified, not intractable, without status migrainosus Category: Medical Qualifiers: Migraine type: unspecified Status migrainosus presence: without status migrainosus Intractability: not intractable Qualified Code(s): G43.909 - Migraine, unspecified, not intractable, without status migrainosus Plan: Reinforced again avoidance of triggers and potential triggers for his migraine headaches Continue Rizatriptan 10 mg PRN and Naproxen 500 mg BID PRN (to be taken with food) Follow up with [facility] Neurology as scheduled - Neurology is considering starting patient on prophylactic medications if his headaches persist or get worse (4) Vitamin D deficiency: Code(s): E55.9 - Vitamin D deficiency, unspecified Category: Medical Plan: Continue Vitamin D3 2000 units QD (5) GERD without esophagitis: Code(s): K21.9 - Gastro-esophageal reflux disease without esophagitis Category: Medical Plan: Dietary restrictions reinforced Continue Omeprazole 20 mg QD (6) Right inguinal hernia: Code(s): K40.90 - Unilateral inguinal hernia, without obstruction or gangrene, not specified as recurrent Category: Medical Plan: Patient is scheduled to be seen by surgery for this in a few days on 06/20/2025 (7) Foot fracture, right: Code(s): S92.901A - Unspecified fracture of right foot, initial encounter for closed fracture Category: Medical Qualifiers: Encounter type: sequela Fracture type: closed Qualified Code(s): S92.901S - Unspecified fracture of right foot, sequela Plan: Patient reportedly sustained a fracture of his right foot back in late March 2025 but was supposedly seen and evaluated by [facility] at the time and was advised that he will not require any surgical intervention Follow up with orthopedics as scheduled or as needed (8) Insomnia: Code(s): G47.00 - Insomnia, unspecified Category: Medical Qualifiers: Insomnia type: unspecified Qualified Code(s): G47.00 - Insomnia, unspecified Plan: Sleep hygiene reinforced Continue Trazodone 100 mg Q HS PPRN (9) Anxiety: Code(s): F41.9 - Anxiety disorder, unspecified Category: Medical Plan: Continue Hydroxyzine 25 mg BID PRN Follow up with psychiatry as scheduled (10) Bipolar depression: Code(s): F31.9 - Bipolar disorder, unspecified Category: Medical Plan: Continue Depakote 500 mg BID, Benztropine 0.5 mg BID, Olanzapine 2.5 mg BID and 5 mg Q HS and Prazosin 6 mg Q HS Follow up with psychiatry as scheduled Plan Follow up as scheduled next month Medications: Changed From loratadine 10 mg PO DAILY To loratadine 10 mg PO DAILY PRN 90 tabs 1RF allergy symptoms 90 days
--- OUTSIDE RECORDS SUMMARY | 2025-06-16 15:36 | XMS_ITS | Patient Health Record ---
Author Organization [facility] Address [address], [place] [id number] Care Team Providers Care Litigation Secretary Name Role Phone ZAbramve - DO NOT USE, Dr Byran Joseph [facility] Care Provider Unavailable Hamilton Pandya Unavailable [phone] Reason For Referral No Information Plan Of Treatment No Information Insurance Providers Payer Name Payer Address Payer Phone Subscriber Number Group Number Insured Name Patient Relationship to Insured Coverage Start Date Coverage End Date [place] [address] [place] [address] [phone] [id number] Edilma Tai Self - patient is the insured
--- OUTSIDE RECORDS SUMMARY | 2025-06-16 15:36 | XMS_ITS | Patient Health Record ---
Author Organization Art Billy MD Address [address] [place] [address] Care Team Providers Care Mortgage Loan Processing Clerk Name Role Phone COURTNEY BILLY Primary Care Provider Reason For Referral No Information Medications Medication SIG (Take, Route, Frequency, Duration) Notes Start Date End Date Status OXcarbazepine Active EpiPen 2-Jerel 0.3 MG/0.3ML as directed In jection prn; Duration: 30 days 12/28/2020 Active Keppra 750 MG 1 tablet am and 2 at night Orally Active Abilify Active Problems Problem Type SNOMED Code ICD Code Onset Dates Problem Status W/U Status Risk Notes Problem Anxiety disorder ([id number]) Anxiety disorder, unspecified (F41.9) Active confirmed Plan [...] Insured Coverage Start Date Coverage End Date [facility] [address] [address] [place] [phone] [id number] Edilma Tai Self - patient is the insured 0 Medical (General) History Medical History History ICD Code seizure disorder bipolar disorder Surgical History Surgery Date(Month/Year)
== END 2025-06-16 16:38 | disposition home or self-care (01) ==
PROVIDERS: PCP Internal Medicine; Visit Provider Internal Medicine
DX: J45.20 Mild intermittent asthma, uncomplicated (principal); J30.9 Allergic rhinitis, unspecified; F31.9 Bipolar disorder, unspecified; G43.909 Migraine, unspecified, not intractable, without status migrainosus; E55.9 Vitamin D deficiency, unspecified; K21.9 Gastro-esophageal reflux disease without esophagitis; K40.90 Unilateral inguinal hernia, without obstruction or gangrene, not specified as recurrent; S92.901S Unspecified fracture of right foot, sequela; G47.00 Insomnia, unspecified; F41.9 Anxiety disorder, unspecified

== ENCOUNTER → 2025-06-16 14:59 | Outpatient (BNVA) | payer OTHER, SELFPAY | PROVIDERS: PCP Internal Medicine; Visit Provider Internal Medicine | DX: J45.20 Mild intermittent asthma, uncomplicated (principal); J30.9 Allergic rhinitis, unspecified; G43.909 Migraine, unspecified, not intractable, without status migrainosus; E55.9 Vitamin D deficiency, unspecified; K21.9 Gastro-esophageal reflux disease without esophagitis; K40.90 Unilateral inguinal hernia, without obstruction or gangrene, not specified as recurrent; G47.00 Insomnia, unspecified; F41.9 Anxiety disorder, unspecified; F31.9 Bipolar disorder, unspecified; S92.901S Unspecified fracture of right foot, sequela; X58.XXXS Exposure to other specified factors, sequela | CPT/HCPCS: 96127; 99212 ==